=== PATIENT | female | born 1955 | race Caucasian/White ===

== ENCOUNTER 2022-07-12 10:00 | Outpatient (RCR) | payer MEDICARE, MEDICAID, SELFPAY | END 2022-09-29 11:51 | disposition home or self-care (01) | PROVIDERS: Visit Provider Physician Assistant Medical | DX: M54.50 Low back pain, unspecified (principal); Z51.89 Encounter for other specified aftercare | CPT/HCPCS: 97110; 97140; 97163 ==

== ENCOUNTER 2023-01-02 13:45 | Outpatient (RCR) | payer MEDICARE, MEDICAID, SELFPAY | END 2023-05-04 23:59 | disposition home or self-care (01) | PROVIDERS: PCP Physician Assistant Medical; Visit Provider Family Medicine | DX: M17.0 Bilateral primary osteoarthritis of knee (principal); M54.50 Low back pain, unspecified; G89.29 Other chronic pain; Z51.89 Encounter for other specified aftercare | CPT/HCPCS: 97140; 97161 ==

== ENCOUNTER 2024-03-03 11:49 | Outpatient (CLI) | payer MEDICARE, SELFPAY ==
--- OUTSIDE RECORDS SUMMARY | 2024-03-21 09:13 | XMS_ITS | Clinical Summary ---
Author Organization [employer] Address [address] [place] [address] Care Team Providers Care Disposal Man Name Role Phone Harvey Ely PA-C Primary Care Provider [phone] Source Comments You are receiving this document as you are listed as the primary care provider,follow-up provider, or the patient has been referred to you for consultation.This is in compliance with the Medicare and[facility] [employer] EHR Incentive Program,which states Providers who transition their patient to another setting of careor provider of care or refers their patient to another provider of care shouldprovide summary care record for each transition of care or referral. [employer] Allergies Active Allergy Reactions Criticality Noted Date Comments Clindamycin Other, see comments 04/14/2009 GI upset Milk Protein Other, see comments 12/04/2020 Penicillins Hives High 02/16/2010 Hives Medications Medication Sig Dispensed Refills Start Date End Date Status ALBUterol sulfate HFA 108 (90 Base) MCG/ACT inhaler SMARTSI-2 Puff(s) By Mouth Every 6 Hours PRN 01/20/2022 Active ELIQUIS 5 MG tablet Take 1 Tablet (5 mg) by mouth two times a day. 03/18/2022 Active atorvastatin (LIPITOR) 80 MG tablet Take 80 mg by mouth daily at bedtime. 05/19/2022 Active Calcium Citrate 250 MG Take 2 Tablets by mouth two times a day. 05/05/2022 Active citalopram (CELEXA) 40 MG tablet Take 1 Tablet (40 mg) by mouth daily. 05/19/2022 Active vitamin B-12 (AKA: CYANOCOBALAMIN) 1000 MCG tablet Take 1 Tablet (1,000 mcg) by mouth daily. 05/02/2022 Active ADVAIR DISKUS 250-50 MCG/ACT diskus inhaler two times a day. 01/20/2022 Acti ve levETIRAcetam (KEPPRA) 750 MG tablet Take 2 Tablets (1,500 mg) by mouth two times a day. 05/19/2022 Active lisinopril-hydroC HLOROthiazide (PRINZIDE) 20-12.5 MG tablet Take 1 Tablet by mouth daily. 05/19/2022 Active metFORMIN XR (GLUCOPHAGE XR) 500 MG 24 hour release tablet Take 1,000 mg by mouth daily. 01/31/2022 Active Multiple Vitamins-Minerals (CERTAVITE/ANTIOX IDANTS) TABS Take 1 Tablet by mouth daily. 05/19/2022 Active Spacer/Aero-Holdi ng Chambers (EQ SPACE CHAMBER ANTI-STATIC) SUZETTE FOR HOME USE 01/20/2022 Activ e rosuvastatin (CRESTOR) 10 MG tablet Take 1 Tablet (10 mg) by mouth daily at bedtime. 09/18/2022 Active Cholecalciferol (VITAMIN D3) 125 MCG (5000 UT) TABS Take 1 Tablet by mouth daily. 09/15/2022 Active EPINEPHrine (EPIPEN) 0.3 MG/0.3ML injection SMARTSI.3 Milligram(s) IM PRN 07/07/2022 Active nitroglycerin (NITROSTAT) 0.4 MG sublingual tablet SMARTSI Tablet(s) Sublingual PRN 07/07/2022 Active diclofenac (VOLTAREN) 1 % gel Apply 2 g to skin 4 times a day. 4 times per day Active diclofenac (VOLTAREN) 75 MG enteric coated tablet Take 1 Tablet (75 mg) by mouth two times a day. 05/22/2022 02/21/2024 Discontinue d Active Problems Problem Noted Date Diagnosed Date Primary osteoarthritis of both knees 11/06/2023 Primary osteoarthritis of both hips 11/06/2023 Encounters Date Type Department Care Team Description 02/21/2024 Telephone [facility] [address] [place] [phone] Chaim Webster MD QUESTIONS, GENERAL 02/14/2024 Telephone [facility] [address] [place] [phone] Chaim Webster MD Orders Needed (wheelchair) from Last 3 Months Social History Tobacco Use Types Packs/Day Years Used Date Smoking Tobacco: Never Tobacco Cessation:Counseling Given: Not Answered Sex and Gender Information Value Date Recorded Sex Assigned at Not on file Gender Identity Not on file Sexual Orientation Not on file Last Filed Vital Signs Vital Sign Reading Time Taken Comments Blood Pressure - - Pulse - - Temperature 36.6 ??C (97.8 ??F) 10/18/2023 1 2:25 PM [employer] Respiratory Rate - - Oxygen Saturation - - Inhaled Oxygen Concentration - - Weight 123.9 kg (273 lb 0.6 oz) 11/06/2023 1:28 PM [employer] Height 166.4 cm (5' 5.5) 11/06/2023 1:28 PM [employer] Body Mass Index 44.75 11/06/2023 1:28 PM [employer] Plan of Treatment Upcoming Encounters Date Type Department Care Team (Late st Contact Info) Description 03/27/2024 3:15 PM CDT Appointment [facility] [address] [place] [phone] [place] [id number] [facility] [address] [place] [address] Health Maintenance Due Date Last Done Comments Colon Cancer Screening Plan Due 1955 Diabetes Screening- (based on age and BMI) 1955 Hep C Screening (Preventive Services) 1955 Cholesterol 2002 Dexa 2022 Medicare Annual Wellness Visit 10/16/2023 COVID-19 Vaccine ( season) 2023 08/08/2023, 07/08/2022, 04/29/2022, Additional history exists Mammogram 09/19/2024 09/19/2023, 05/26/2022 DTaP/Tdap/Td (4 - Tdap) 02/08/2028 02/08/20 18, 04/29/2008, 10/22/2007, Additional history exists Zoster/Shingles Completed 10/15/2020, 07/31/2020 Pneumococcal 65+ Yrs Completed 07/08/2022, 10/26/19 00 Influenza Completed 08/08/2023, 06/17, 07/15/2021, Additional history exists HepA Aged Out No longer eligi ble based on patient's age to complete this topic HepB Aged Out No longer eligi ble based on patient's age to complete this topic Hib Aged Out No longer eligi ble based on patient's age to complete this topic IPV (Polio) Aged Out No longer eligi ble based on patient's age to complete this topic MCV4 Aged Out No longer eligi ble based on patient's age to complete this topic Procedures Procedure Name Priority Date/Time Associated Diagnosis Comments MM MAMMOGRAM SCREENING BILAT W 3D SABRINA W CAD Routine 09/19/2023 1:08 PM [employer] from Last 3 Months or Most Recently Relevant to Health Maintenance Care Teams Disposal Man Relationship Specialty Start Date End Date Harvey Ely, PARafaC [address] [place] [address] PCP - General Physician Herbologist 10/23/23
--- OUTSIDE RECORDS SUMMARY | 2024-03-21 09:13 | XMS_ITS | Clinical Summary ---
Author Organization [facility] Address [address] [address] Phone Care Team Providers Care Legal Arbitrator Name Role Phone Unavailable Primary Care Provider Unavailabl e Allergies Active Allergy Reactions Criticality Noted Date Comments Bactrim Pruritis 07/12/2010 Clindamycin Other 04/14/2009 GI upset Environmental 12/09/2011 Sensitive to airborne irritants including cleaning chemicals, cigarette smoke, and perfumes Food Anaphylaxis High 02/16/2010 Dairy Products- respiratory problems Hydrocodone Nausea and Vomiting Medium 06/29/2012 Levaquin Headache 07/31/2012 Patient states it makes her nausea and gives her headaches Niacin Other 04/14/2009 Flushing and irregular hearbeat Penicillins High 02/16/2010 Hives Simvastatin Other High 04/14/2009 Myalgias Statin Intolerance Documentation 2. Shared decision making discussion with patient regarding statins and patient choses to not trial a second or additional statin. Medications Medication Sig Dispensed Refills Start Date End Date Status aspirin EC 81 MG tablet Take 1 Tab by mouth one time a day. Do not split or crush. 1 Tab 12/09/2019 Active levETIRAcetam (Keppra) 750 MG tabletIndications:Ge neralized convulsive epilepsy without intractable epilepsy (HCC) TAKE 2 TABLETS BY MOUTH TWICE DAILY. DO NOT CRUSH 360 Tab 3 12/10/2019 Active Multiple Vitamins-Minerals (Multivitamin Adult) Tablet Take 1 Tab by mouth one time a day. 100 Tab 3 12/11/2019 Active Eliquis 5 MG Tablet tablet TAKE 1 TABLET BY MOUTH TWICE DAILY 180 Tab 1 06/08/2020 Active citalopram (CeleXA) 40 MG tablet Take 1 Tab by mouth one time a day. 90 Tab 1 06/08/2020 Active cholecalciferol, vitamin D3, 125 MCG (5000 UT) Capsule Take 1 Cap by mouth one time a day. 1 unit of Vitamin D equals 0.025 mcg of Vitamin D 30 Cap 06/25/2020 Active zolpidem (Ambien) 5 MG tablet TAKE 1 TABLET BY MOUTH AT BEDTIME NEEDED FOR SLEEP. IF TAKING, DECREASE LORAZEPAM TO 1MG AT BEDTIME 90 Tab 07/08/2020 Active diclofenac EC (Voltaren) 75 MG tablet TAKE 1 TABLET BY MOUTH TWICE DAILY. DO NOT CRUSH TABLETS.TK WITH FOOD OR MILK 180 Tab 1 07/31/2020 Active nitroglycerin (Nitrostat) 0.[address] 1 Tab under the tongue as needed for Chest pain. Do not crush; maximum of 3 doses in 15 minutes. 5 Tab 1 07/31/2020 Active EPINEPHrine, auto-injector, (EPIPEN 2-damion) 0.3 MG/0.3ML Solution Auto-injector injection Inject 0.3 mL into the muscle one time as needed for Anaphylaxis for up to 1 dose. 2 Each 07/31/2020 Active albuterol HFA (Proair HFA, Ventolin HFA) 108 (90 Base) MCG/ACT inhalation aerosol Inhale 2 Puffs into the lungs every four hours as needed for Wheezing, Shortness of Breath or Cough. Shake before using. 8 g 07/31/2020 Active LORazepam (Ativan) 1 MG tablet TAKE 1 AND 1/2 TABLETS BY MOUTH NEEDED AT BEDTIME 60 Tab 08/28/2020 Active atorvaSTATin (Lipitor) 80 MG tablet TAKE 1 TABLET BY MOUTH EVERY DAY 30 Tab 10/15/2020 Active Active Problems Problem Noted Date Diagnosed Date Paroxysmal atrial fibrillation 05/01/2018 Overview: 10/31/17 Note: CHADS-VASc score is approximately a 3 for previous hypertension, female gender, and atherosclerosis. HAS-BLED score is not significantly elevated, though I do much concern given that she needs antiplatelet therapy and she has a seizure disorder. Blood pressure is not terrible today. Nonetheless, with the seizure disorder, when it does happen, it is quite significant. We discussed talking with Dr. Townsend or Dr. Morgan about the potential of a Watchman device. She is interested in meeting and discussing. For right now, will continue the Plavix. See above about metoprolol as a consideration for concurrent blood pressure management along with her A fib history. ?? 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 11/22/2013 Atrial fibrillation with RVR- isolated episode 0 05/03/2013 Refractory migraine without aura 02/15/2013 Greater trochanteric bursitis of both hips 02/22 Degeneration of lumbar or lumbosacral interverte bral disc 02/10/2012 Metabolic syndrome 09/15/2011 Overview: IMO Update 07/26 Morbid obesity with BMI of 40.0-44.9, adult 08/16 Incontinence 04/04/2011 Adjustment disorder with depressed mood 02/17/20 Allergic rhinitis 02/16/2010 Resolved Problems Problem Noted Date Diagnosed Date Resolved Date Weakness of left upper extremity 06/27/2019 07/30/2019 Left shoulder pain, unspecified chronicity 05/17/2017 07/30/2019 Chronic low back pain, unspe cified back pain laterality, unspecified whether sciatica present 08/20/2015 11/27/2019 Bursitis of right hip 07/27/20152016 Acute upper back pain 02/12/20142016 BPPV (benign paroxysmal positional vertigo) 02/07/2014 05/01/2018 Chronic pain 01/28/2014 11/21/2017 Chest pain 05/03/2013 10/13/2017 Recurrent Seizures, generalized convulsive 01/27/2013 11/21/2017 Acute respiratory failure 01/27/2013 Pneumonitis due to inhalatio n of food or vomitus 01/27/2013 01/24/2017 Shoulder impingement 11/20/2012 018 Spondylolisthesis of lumbar region 05/18/2012 11/21/2017 Lumbosacral spondylosis without myelopathy 02/23/2012 05/18/2012 Lumbago 05/28/2010 02/10/2012 Overview: IMO Update 07/26 Chronic Pain Syndrome-Opioid Agreement (signed 05/28/2010) 05/28/2010 02/28/2012 Overview: Opioid Drug Agreement Form. Opioid Agreement Date: 05/28/2010 Last UDT (Urine Drug Test) on date: none Pain Dx: chronic pain syndrome Last Pain Visit: 06/29/2010 back pain Preferred Pharmacy: [facility] Comments: none Other convulsions 05/17/2010 11/21/2017 Overview: IMO Update 07/26 MRSA 03/31/2010 10/14/2011 Overview: Resolved by Infection Prevention on 10/17/2011. Date & Source of First Known MRSA: 03/30/2010 - UPPER LIP Date and source of negative screens that qualify* for resolution of MRSA from infection table: 06/03/2010 - NEGATIVE NARES 10/14/2011 - NEGATIVE NARES *2 sets of MRSA negative screens (previous positive site(s) if applicable and bilateral anterior nares) at least 7 days apart are required to resolve. Screening exclusions include dialysis, skilled nursing care residence, antibiotics within the past 7 days, chronic wounds or invasive devices, & recurrent MRSA infections. Please contact Infection Prevention for your facility if questions. Coronary Atherosclerosis of [place] Coronary Artery, stents x 4, PR 2006, 2007, hypertension 02/16/2010 02/03/2015 Overview: IMO Update 07/26 Other and unspecified hyperlipidemia 02/16/2010 07/31/2015 Overview: IMO Update 07/26 Asthma 02/16/2010 11/09/2012 Gen noncv ep w/o intr ep 02/16/2010 Overview: IMO Update 07/26 Immunizations Name Administration Dates Next Due Hepatitis B, Adult 11/11/2008,06/05/2008, 008 Influenza (3+ Yrs) Trivalent PF-Single Dose Syringe/Vial (Flu Clinic) 07/31/2012 Influenza (6+ Months) Quad NPF Vial 07/03/2015 Influenza (Historic Use Only) 07/09/2009, 006,08/03/2005 Influenza Quad Preservative Free 020,07/23/2019,07/11/2018,2016,08/03/2016 Influenza Seasonal Inj A,B 08/01/2013,08/25/2011 ,09/27/2010 Influenza Vaccine (6 months - 64 Years) Quad PF Syringe (Flu Clinic) 07/21/2014 MMR 06/05/2008 Pneumovax 23 10/26/1999 TD >7yrs With Preservative 04/29/2008,05/26/1992 Tdap (7 years and older) 02/07/2018 Zoster Shingrix 2 Dose (Shingles) 07/31/2020 Surgical History Surgery Date Site/Laterality Comments INSERT INTRACORONARY STENT 07/31/2007 Stent Placement, Coronary. Had stent thrombosis is 2007 after D/C Plavix. Restented 09/25/2008. DEXA, BONE DENSITY STUDY, 1 OR 11/03/2004 [facility] EXPLOR MAXILL SINUS,INTRANASAL 10/16/2004 - 11/15/2004 Bilateral osteotomies of medial sy of maxillary sinuses NASAL SCOPY,REMV PART ETHMOID 02/20/1997 REVISE MEDIAN N/CARPAL TUNNEL SURG 11/12/2004 Right carpal tunnel release LEFT HEART CATH 07/31/2007 DILATION/CURETTAGE,DIAGNOST IC 10/16/1976 - 10/15/1977 D & C following miscarriage LIGATE FALLOPIAN TUBE BIOPSY OF UTERUS LINING 08/20/2001 Benign COLPOSCOPY,BX CERVIX/ENDOCERV CURR 10/17/2003 Benign LEFT HEART CATH 09/25/2008 In stent stenosis - new stent placed INJ LUMBAR/SACRAL,W/WO CNTRST 07/12/2010 INJ PARAVERT F JNT L/S 1 LEV 12/30/2010 Also 06/14/10 INJ PARAVERT F JNT L/S 2 LEV 12/30/2010 Also 06/14/10 DRAIN/INJECT LARGE JOINT/BURSA 12/30/2010 CARDIAC SURGERY INTRAOCULAR LENS PROSTHESIS INSERTION 11/22/2018 Eye/Left Procedure: left eye cataract extraction with intraocular lens implant; Surgeon: Miguel Toussaint MD; Location: [facility] Medical devices from this surgery are in the Medical Devices section. Medical History Medical History Date Comments Reactive airway disease 02/16/2010 Coronary atherosclerosis of [place] coronary artery 02/16/2010 S/p stent placement Other and unspecified hyperlipidemia 02/16/2010 Contact with and suspected e xposure to potentially hazardous chemicals 04/13/2009 Exposure to polychl oroprene solvent, [place] bonding adhesive. Obesity, unspecified 04/14/2009 Acute myocardial infarction of other anterior wall, initial episode of care 04/14/2009 S/p stent placed proximal an d mid LAD, PTCA of a jailed second diagonal branch 07/31/2007 Pneumonia, organism unspecified(486) 08/25/2002 Carpal tunnel syndrome on both sides 08/26/2004 Moderate grade; S/p right carpal tunnel release on 11/12/2004 Low back pain 03/12/2010 Severe low back pain with radiation into the leg Pain in joint, ankle and foot 03/12/2010 Le ft Left shoulder pain 03/12/2010 Osteoarthrosis, unspecified whether generalized or localized, unspecified site 03/12/2010 DJD without herniated disc Allergic rhinitis, cause unspecified 03/12/2010 Longstanding history of sinus problems Papanicolaou smear of cervix with atypical squamous cells of undetermined significance (ASC-US) 12/30/2002 Cervical biopsy kennedy wed cervicitis and reactive epithelial atypia - endocervix negative. Migraine, unspecified, witho ut mention of intractable migraine without mention of status migrainosus 12/30/2002 MRSA (methicillin resistant staph aureus) culture positive 04/02/2010 Chronic pain syndrome 05/28/2010 Opioid Derrick g Agreement Form. Lumbosacral spondylosis with out myelopathy 12/30/2010 Also noted 07/12/10, 06/14/10. Sciatica 07/12/2010 Enthesopathy of hip region 12/30/2010 Essential hypertension, benign Memory loss 01/02/2014 Sleep disturbance 01/02/2014 Bursitis of right hip 07/27/2015 Acute upper back pain 02/12/2014 Pneumonitis due to inhalatio n of food or vomitus (HCC) 01/27/2013 Acute respiratory failure (HCC) 01/27/2013 Depression Asthma Generalized nonconvulsive ep ilepsy without mention of intractable epilepsy 02/16/2010 EEG is consistent with abnor mality of seizure disorder Other convulsions 04/29/2010 EEG Generalized epilepsy (HCC) 11/15/2013 Hx of heart artery stent x2 Family History Medical History Relation Comments Cancer Father Myeloma Cancer Mother Cervical cancer, age 28, of islet cell carcinoma age 81 Cardiovascular Disease Mother S/p coron ivv artery bypass surgery Hypertension Mother Musculo-skeletal Disease Mother Arthrit is Cardiovascular Disease Other 1 Strong fa jimmy history for cardiac disease Diabetes Other 2 Aunt, uncle Cancer Other 3 Aunt - liver, co alan cancer in her 50s Cancer Other 4 Grandfather, amrit kemia Neuro Disease Other 5 Aunt of a c erebral bleed Cardiovascular Disease Sister 1 CHF Neuro Disease Sister 1 Twin sister with epilepsy Other Sister 1 adverse reaction to morphine Asthma Sister 2 Ophthalmic Disease Negative Family Hx Relation Status Comments Father (Age 62) Multiple myelo ma Maternal Grandfather Maternal Grandmother Mother Other 1 Other 2 Other 3 Other 4 Other 5 Paternal Grandfather Paternal Grandmother Sister 1 Sister 2 Social History Tobacco Use Types Packs/Day Years Used Date Smoking Tobacco: Never Smokeless Tobacco: Never Tobacco Cessation:Counseling Given: No Alcohol Use Standard Drinks/Week Comments No 0 (1 standard drink = 0.6 oz pur e alcohol) no Overall Financial Resource Strain (CARDIA) Answe r Date Recorded Difficulty of Paying Living Expenses Somewhat [place] [address] 10/23/2019 PHQ-2 Answer Date Recorded PHQ-2 Total 0 11/26/2019 Hunger Vital Sign Answer Date Recorded Worried About Running Out of Food in the Last Ye ar Sometimes true 10/23/2019 Ran Out of Food in the Last Year Sometimes true 10/23/2019 PRAPARE - Transportation Answer Date Re corded Lack of Transportation (Medical) No 07/23/2019 Lack of Transportation (Non-Medical) No 07/23/2019 Sex and Gender Information Value Date Recorded Sex Assigned at Not on file Gender Identity Not on file Sexual Orientation Not on file Job Start Date Occupation Industry Not on file Not on file Not on file Obstetrics History Para Term AB IAB SAB Ectopic Molar Multiple Living Live Births 4 3 0 1 1 3 4 Date Outcome GA Total Labor Labor/2nd/3rd Weight Sex Type Anes PTL Darline A1 A5 Name Clin 04/29 Para M LV/ VAG Living 09/03 SAB 09/06 Para F LV/ VAG Living 06/03 Para M LV/ VAG Living Last Filed Vital Signs Vital Sign Reading Time Taken Comments Blood Pressure 142/90 07/31/2020 1:11 PM CDT Pulse 69 07/31/2020 12:41 PM CDT Temperature 36.7 ??C (98 ??F) 11/26/2019 10: 16 AM DOWEL INSPECTOR Respiratory Rate 18 12/10/2019 10:3 4 AM DOWEL INSPECTOR Oxygen Saturation 97% 07/31/2020 12: 35 PM CDT Inhaled Oxygen Concentration - - Weight 127.5 kg (281 lb 1.4 oz) 020 11:08 AM DOWEL INSPECTOR Height 165.1 cm (5' 5) 11/26/2019 10:1 6 AM DOWEL INSPECTOR Body Mass Index 46.06 11/06/2019 11:08 AM DOWEL INSPECTOR Plan of Treatment Health Maintenance Due Date Last Done Comments CT Colonography 1957 Cologuard 1957 Colonoscopy 1957 Colorectal Cancer Screening 1957 FIT/FOBT 1957 Sigmoidoscopy 1957 RSV Vaccination (60+ yrs) (Abrysvo/Arexvy) (1 - 1-dose 60+ series) 2017 MAMMO,SCREEN 08/27/2020 08/28/2019, 0510/2017, 08/09/2016, Additional history exists Shingrix (Zoster recombinant) vaccine (Standing Order) (2 of 2) 09/25/2020 07/31/2020 DXA,FEMALES AGE 65 OR GREATER 2022 Pneumococcal Vaccine: 65+ yrs (Standing Order) (2 of 2 - PCV) 2022 10/26/1999 Influenza Vaccine Seasonal (Standing Order) (#1) 2023 07/31/2020, 07/23/2019, 07/11/2018, Additional history exists VASCULAR LIPID PROFILE Q5 YEARS (Standing Order) 07/22/2024 07/22/2019, 08/09/2017, 08/02/2016, Additional history exists TETANUS (Standing Order) 02/08/2028 018, 04/29/2008, 05/26/1992 Hepatitis B Vaccine (Standing Order) Completed 11/11/2008, 06/05/2008, 04/29/2008 PERTUSSIS (Standing Order) Completed 02/07/2018 HPV Vaccine (Standing Order) Aged Out No longer eligible based on patient's age to complete this topic Medical Devices Implanted Type Area Color Dipper Device Identifier Shelf Expiration Date Model / Serial / Lot Sling Pelvic T-Sling - [id number] Implanted:Qty: 1 on 10/14/2011 at [facility] N/A: Bladder COLOPLAST [place]ILLA. [id number] / N/A / [id number] Lens Iol [id number] 16.0d Acrysof Iq [id number] - [id number] Implanted:Qty: 1 on 11/22/2018 by Miguel Toussaint MD at [facility] [place] Left: Eye ENZO 05/15/2023 [id number] / [id number] / * Procedures Procedure Name Priority Date/Time Associated Diagnosis Comments MAMM SABRINA SCREEN DIGITAL BILAT Routine 08/28/2019 1:52 PM DOWEL INSPECTOR Visit for screening mammogram LIPID PROFILE Routine 07/22/2019 8:17 AM CDT Coronary artery disease involving [place] coronary artery without angina pectoris, unspecified whether [place] or transplanted heart from Last 3 Months or Most Recently Relevant to Health Maintenance Results * MAMM SABRINA SCREEN DIGITAL BILAT (08/28/2019 1:52 PM DOWEL INSPECTOR) Anatomical Region Laterality Modality Breast Bilateral Mammography 08/28/2019 1:52 PM DOWEL INSPECTOR Narrative 08/28/2019 8:44 PM DOWEL INSPECTOR This document is currently in Final Status Exam MAMM SABRINA SCREEN DIGITAL BILAT COMPARISON: 02/23/2018, 08/09/2016, 08/29/2014, 05/17/2011. TECHNICAL: Standard MLO and CC views of both breasts acquired with 2D and 3D tomosynthesis. Computer-Aided Detection System was utilized. BREAST DENSITY: There are scattered areas of fibroglandular density. FINDINGS: No suspicious masses, architectural distortion, skin thickening, nipple retraction, or suspicious calcifications are appreciated. IMPRESSION: No suspicious radiographic findings. Routine followup recommended with mammogram in 1 year. BI-RADS 1: Negative Dictated By: Megan Torres MD 08/28/2019 7:30 PM Edited By: TT 08/28/2019 7:31 PM Electronically Signed: Megan Torres MD 08/28/2019 8:44 PM Procedure Note Megan Torres MD - 08/28/2019 This document is currently in Final Status Exam MAMM SABRINA SCREEN DIGITAL BILAT COMPARISON: 02/23/2018, 08/09/2016, 08/29/2014, 05/17/2011. TECHNICAL: Standard MLO and CC views of both breasts acquired with 2D and3D tomosynthesis. Computer-Aided Detection System was utilized. BREAST DENSITY: There are scattered areas of fibroglandular density. FINDINGS: No suspicious masses, architectural distortion, skin thickening,nipple retraction, or suspicious calcifications are appreciated. IMPRESSION: No suspicious radiographic findings. Routine followuprecommended with mammogram in 1 year. BI-RADS 1: Negative Dictated By: Megan Torres MD 08/28/2019 7:30 PM Edited By: ANDREINA 08/28/2019 7:31 PM Electronically Signed: Megan Torres MD 08/28/2019 8:44 PM Caren Ovalle MD MAMMOGRAPHY [facility] * (ABNORMAL) LIPID PANEL (07/22/2019 8:17 AM CDT) Cholesterol 152 114 - 200 mg/dL 07/22/2019 11:54 AM CDT [facility] HDL Cholesterol 39(L) 40 - 60 mg/dL 07/22/2019 11:54 AM T [facility] Triglycerides 172 10 - 200 mg/dL 07/22/2019 11:54 AM T [facility] LDL Cholesterol, Calculated 79 mg/dL 07/22/2019 11:54 AM [facility] Blood specimen (specimen) BLOOD SPECIMEN / Unknown Venipuncture / Unknown 07/22/2019 8:17 AM CDT 07/22/2019 8:17 AM CDT Narrative [facility] - 07/22/2019 11:54 AM CDT ?Triglyceride If patient is non-fasting, the result of the triglyceride is invalid. ?? Triglyceride Reference Ranges ?? Normal: ?10-200 mg/dL ?? Borderline High: ??150-200 mg/dL ?? High: ? 201-499 mg/dL ?? Very High: ? =500 ?mg/dL Total Cholesterol Reference Ranges ?? Desirable: ? <200 ?mg/dL Borderline High: ?? 200-239 mg/dL High: ?>239 ?mg/dL Calculated LDL Cholesterol Reference Ranges ? Optimal: ?<100 ? mg/dL ? Near Optimal: ? 100-129 ??mg/dL ? Borderline High: ??130-159 ??mg/dL ? High: ? 160-189 ??mg/dL ? Very High: ?>189 ? mg/dL Caren Ovalle MD EC CHEMISTRY ORDERA BLES [facility] [address] [place] [address], [facility] from Last 3 Months or Most Recently Relevant to Health Maintenance Advance Directives For more information, please contact: [phone] * Full Code (Latest Code Status on File) Date Activated Date Inactivated Comments 05/03/2013 12:23 AM 05/03/2013 7:19 PM * Full Code Date Activated Date Inactivated Comments 01/27/2013 3:22 AM 01/29/2013 4:19 PM
--- OUTSIDE RECORDS SUMMARY | 2024-03-21 09:13 | XMS_ITS | Referral Summary ---
Author Organization [place] Address [address] [place] [address] Care Team Providers Care Desizing Machine Operator Head End Name Role Phone Clinic, [facility] Primary Care Provider + Allergies Active Allergy Reactions Criticality Noted Date Comments Clindamycin Other (See Comments) 04/14/2009 GI upset Milk Protein 12/04/2020 Hydrocodone Nausea and Vomiting Medium 06/29/2012 Levofloxacin Headache 07/31/2012 Patient states it makes her nausea and gives her headaches Niacin Other (See Comments) 04/14/2009 Flushing and irregular hearbeat Other Drug Allergy (See Comments) Other (See Comments) 11/01/2022 This patient has a history of a Grecia-en-Y gastric bypass. AVOID NSAIDs and aspirin due to risk of gastric and/or G-J anastomotic ulcers. If Amber must be on short course of NSAIDs or aspirin, use enteric coated if possible and use PPI // Susie Oh RN, Bariatric Nurse , [facility] Weight Management 11/01/2022. Penicillins 12/04/2020 Simvastatin Other (See Comments) High 04/14/2009 Myalgias Statin Intolerance Documentation 2. Shared decision making discussion with patient regarding statins and patient choses to not trial a second or additional statin. Sulfamethoxazole-Trime thoprim Itching 07/12/2010 Medications Medication Sig Dispensed Refills Start Date End Date Status ELIQUIS ANTICOAGULANT 5 MG tablet Take 1 tablet by mouth 2 times daily 04/26/2023 Active albuterol (PROAIR HFA/PROVENTIL HFA/VENTOLIN HFA) 108 (90 Base) MCG/ACT inhaler Inhale 1-2 puffs into the lungs every 6 hours as needed for shortness of breath 01/20/2022 Active atorvastatin (LIPITOR) 80 MG tablet Take 80 mg by mouth At Bedtime 08/31/2022 Active citalopram (CELEXA) 40 MG tablet Take 40 mg by mouth daily Active cyclobenzaprine (FLEXERIL) 10 MG tablet Take 10 mg by mouth 3 times daily Active levETIRAcetam (KEPPRA) 1000 MG tablet Take 1,000 mg by mouth daily 03/07/2023 Active lisinopril-hydrochloro thiazide (ZESTORETIC) 20-12.5 MG tablet Take 1 tablet by mouth daily 03/22/2023 Active metaxalone (SKELAXIN) 800 MG tablet Take 800 mg by mouth 3 times daily 01/19/2023 Active rosuvastatin (CRESTOR) 10 MG tablet Take 10 mg by mouth At Bedtime Active Social History Tobacco Use Types Packs/Day Years Used Date Smoking Tobacco: Never Assessed Adolescent Education Answer Date Record ed Getting School Help Needed Not on file 07/08 Sex and Gender Information Value Date Recorded Sex Assigned at Not on file Gender Identity Not on file Sexual Orientation Not on file Last Filed Vital Signs Vital Sign Reading Time Taken Comments Blood Pressure 128/63 06/13/2023 1:37 PM CDT Pulse 86 06/13/2023 12:38 PM CDT Temperature 36.7 ??C (98.1 ??F) 06/13/2023 1 0:56 AM CDT Respiratory Rate 18 06/13/2023 1:45 PM CDT Oxygen Saturation 98% 06/13/2023 1:45 PM CDT Inhaled Oxygen Concentration - - Weight 120.2 kg (264 lb 15.9 oz) 2022 10:56 AM CDT Height 166.4 cm (5' 5.5) 06/13/2023 10 :56 AM CDT Body Mass Index 43.43 06/13/2023 10:56 AM CDT Plan of Treatment Not on file Procedures Procedure Name Priority Date/Time Associated Diagnosis Comments BASIC METABOLIC PANEL STAT 06/13/2023 10:58 AM CDT MA SCREENING BILATERAL W/ SABRIAN Routine 05/26/2022 12:29 PM CDT from Last 3 Months or Most Recently Relevant to Health Maintenance Results * (ABNORMAL) Basic metabolic panel (BMP) (06/13/2023 10:58 AM CDT) Sodium 143 136 - 145 mmol/L 06/13/2023 11:27 AM CDT LABORATORY Potassium 3.7 3.4 - 5.3 mmol/L 06/13/2023 11:27 AM CDT RH LABORATORY Chloride 106 98 - 107 mmol/L 06/13/2023 11:27 AM CDT LABORATORY Carbon Dioxide (CO2) 24 22 - 29 mmol/L 06/13/2023 11:27 AM CDT LABORATORY Anion Gap 13 7 - 15 mmol/L 06/13/2023 11:27 AM CDT RH LABORATORY Urea Nitrogen 19.0 8.0 - 23.0 mg/dL 06/13/2023 11:27 AM CDT LABORATORY Creatinine 0.69 0.51 - 0.95 mg/dL 06/13/2023 11:27 AM CDT LABORATORY Calcium 10.0 8.8 - 10.2 mg/dL 06/13/2023 11:27 AM CDT LABORATORY Glucose 114(H) 70 - 99 mg/dL 06/13/2023 11:27 AM CDT LABORATORY GFR Estimate >90 >60 mL/min/1.7 3m2 06/13/2023 11:27 AM CDT LABORATORY Blood BLOOD SPECIMEN / Unknown Venipuncture / Unknown 06/13/2023 10:58 AM CDT 06/13/2023 11:02 AM CDT Jaida Smith DO LAB - BLOOD ORDERABL ES LABORATORY [facility] [address] Lab (1st floor, no room number) [place] [address], [facility] [phone] from Last 3 Months or Most Recently Relevant to Health Maintenance Care Teams Desizing Machine Operator Head End Relationship Specialty Start Date End Date [facility], [facility] [address] [place] [address] PCP - General 12/04/20
--- OUTSIDE RECORDS SUMMARY | 2024-03-21 09:13 | XMS_ITS | Encounter Summary ---
Author Organization [facility] Address [address] [place] [address] Care Team Providers Care Manufacturing Operations Manager Name Role Phone Harvey Ely PA-C Primary Care Provider [phone] Reason for Referral * Procedure/Equipment (Routine) - New Request Specialty Diagnoses / Procedures Referred By Contac t Referred To Contact Diagnoses Primary osteoarthritis of both knees Primary osteoarthritis of both hips Procedures [place] [address] [facility] [address] [place] [address] [facility] [address] [place] [address] Referral ID Status Reason Start Date Expiration Date V isits Requested Visits Authorized [id number] New Request 02/16/2024 08/14/2024 1 1 Reason for Visit * Reason Comments Orders Needed wheelchair Encounter Details Date Type Department Care Team (Late st Contact Info) Description 02/14/2024 Telephone [facility] [address] [place] [address] [place] [address] [address] [place] [address] Orders Needed (wheelchair) Social History Tobacco Use Types Packs/Day Years Used Date Smoking Tobacco: Never Sex and Gender Information Value Date Recorded Sex Assigned at Not on file Gender Identity Not on file Sexual Orientation Not on file documented as of this encounter Progress Notes * Chaim Addison MD - 02/16/2024 9:46 AM CDTAddended by: CHAIM ADDISON on: 02/16/2024 09:46 AM Modules accepted: Orders documented in this encounter Nursing Notes * Maria Elena Canela CMA - 02/16/2024 10:36 AM CDT Faxed [phone] wheelchair order to [facility]. Verified receipt of fax * Mali Ruiz CMA - 02/15/2024 10:57 AM CDT Pt was informed of note. Patient is having a really hard time being mobile. Patient does use the walker to get around apt but struggles. Patient would like to use a wheelchair to get around for longer distances. Please sign wheelchair order and clinic team will fax this order over to the [facility] [place] [address] [address] [place] [address] Hours: Monday - Monday: 8:30-5:00 * Chaim Addison MD - 02/14/2024 5:20 PM CDT Patient to be informed that she needs to use a walker before moving on to a wheelchair. I will do the script if she already has a walker. Any stronger pain meds need to come from her PCP as we will not give them to her preoperatively. She still needs to hit the goal weight of 250 to schedule surg nena as moving forward before then is too risky. Even proceeding at 250 is above our typical maximumBMI and still carries elevated risk. Chaim Addison MD 5:23 PM 02/14/2024 * Kimberly Huitron RN - 02/14/2024 4:12 PM CDT Action: Input needed Next Step: Caller IS expecting a call back from care team. Specific Request(s): 1. Pt requesting order for a wheelchair- pended if appropriate. 2. Pt requesting medication to assist with pain management. See further rational. Pt states that both knees are in extreme pain. Reports tylenol is not assisting with the pain and pt is unable to take nsaid. Pt is requesting stronger medication for pain. Advised prior to surgery narcotics are rarely prescribed for pain management and most often need to come from primary care provider. Pt would like to ask Dr. Addison. Pt states her weight is now at 268. Encouraged pt to ice. Pt states losing weight is very difficult when she is not able to stand the pain. Advised message wouldbe routed to MD and a call back would be given with response. * Sandra Fay - 02/14/2024 2:34 PM CDT GENERAL QUESTIONS How may we help you today? Pt. would like a call back from the care team. Describe your symptoms/concerns: she is having hard time walking would like a call back to discuss an order for wheelchair and medication for pain. Please call to advise. When did the issue start: Have you been seen for this recently?: Yes: Date: 11/06 Provider: If we are unable to reach you can we leave a detailed message on your voicemail? Yes If we are unable to reach you can we send you a message in [employer]? No [Acls Specialist/Cement Truck Driver: Relay to patient; We make every effort to get back to you sameday, however it may take 1-2 business days depending on the nature of the communication.] documented in this encounter Plan of Treatment Upcoming Encounters Date Type Department Care Team (Late st Contact Info) Description 03/27/2024 3:15 PM CDT [facility] [address] [place] [address] [place] [address] [facility] [address] [place] [address] documented as of this encounter Visit Diagnoses Diagnosis Primary osteoarthritis of both knees- Primary Primary localized osteoarthrosis, lower leg Primary osteoarthritis of both hips Primary localized osteoarthrosis, pelvic region and thigh documented in this encounter Care Teams Manufacturing Operations Manager Relationship Specialty Start Date End Date Harvey Ely PA-C [address] [place] [address] PCP - General Physician Client Customer Manager 10/23/23 documented as of this encounter
--- OUTSIDE RECORDS SUMMARY | 2024-03-21 09:13 | XMS_ITS | Clinical Summary ---
Author Organization [place] Address [address] [place] [address] Care Team Providers Care Researcher Name Role Phone Clinic, [facility] Primary Care Provider + Allergies Active Allergy [...] // Susie Oh RN, Bariatric Nurse , [facility] Weight Management 11/01/2022. Penicillins 12/04/2020 Simvastatin Other [...] 06/13/2023 10:56 AM CDT Plan of Treatment Health Maintenance Due Date Last Done Comments ADVANCE CARE PLANNING 1955 ANNUAL REVIEW OF HM ORDERS 1957 CT COLONOGRAPHY 1957 DEXA 1957 FIT 1957 FLEX SIG 1957 LIPID 1957 sDNA (Cologuard) 1957 COLONOSCOPY 1967 COLORECTAL CANCER SCREENING 1967 HEPATITIS C SCREENING 1975 RSV VACCINE ( & 60+) (1 - 1-dose 60+ series) 2017 FALL RISK ASSESSMENT 2022 COVID-19 Vaccine ( - 2022- season) 2023 07/08/2022, 04/29/2022, 12/09/2021, Additional history exists MEDICARE ANNUAL WELLNESS VISIT 09/15/2023 09/15/2022, 09/14/2021, 07/23/2019, Additional history exists PHQ-2 (once per calendar year) 2023 MAMMO SCREENING 05/26/2024 05/26/2022 INFLUENZA VACCINE (Season Ended) 2024 07/07/2022, 07/15/2021, 07/31/2020, Additional history exists GLUCOSE 06/13/2026 06/13/2023, 11/16, 12/04/2020 DTAP/TDAP/TD IMMUNIZATION (4 - Td or Tdap) 02/08/2028 02/07/2018, 04/29/2008, 10/22/2007, Additional history exists ZOSTER IMMUNIZATION Completed 10/15/2020, 0 Pneumococcal Vaccine: 65+ Years Completed 07/08/2022, 10/26/1999 HPV IMMUNIZATION Aged Out No longer e ligible based on patient's age to complete this topic IPV IMMUNIZATION Aged Out No longer e ligible based on patient's age to complete this topic MENINGITIS IMMUNIZATION Aged Out No l onger eligible based on patient's age to complete this topic RSV MONOCLONAL ANTIBODY Aged Out No l onger eligible based on patient's age to complete this topic Procedures Procedure Name Priority Date/Time Associated Diagnosis Comments BASIC METABOLIC PANEL STAT 06/13/2023 10:58 AM CDT MA SCREENING BILATERAL W/ SABRINA Routine 05/26/2022 12:29 PM CDT from Last 3 Months or Most Recently Relevant to Health Maintenance Results * (ABNORMAL) Basic metabolic panel (BMP) (06/13/2023 10:58 AM CDT) Sodium 143 136 - 145 mmol/L 06/13/2023 11:27 AM CDT LABORATORY Potassium 3.7 3.4 - 5.3 mmol/L 06/13/2023 11:27 AM CDT LABORATORY Chloride 106 98 - 107 mmol/L [...] DO LAB - BLOOD ORDERABL ES LABORATORY [facility] Acute Care Lab [address] Lab (1st floor, no room number) [place] [address], [facility] [phone] from Last 3 Months or Most Recently Relevant to Health Maintenance Care Teams Researcher Relationship Specialty Start Date End Date [facility], [facility] [address] [place] [address] PCP - General 12/04/20
--- OUTSIDE RECORDS SUMMARY | 2024-03-21 09:13 | XMS_ITS | Patient Health Record ---
Author Organization [facility] Address [address] [facility] [address] [place] [address] Care Team Providers Care Pension Fund Manager Name Role Phone Harvey Ely Primary Care Provider Darby Geiger Unavailable [phone] ALLERGIES Allergen (clinical drug ingredient) Drug/Non Drug Allergy documented on EMR Reaction Allergy Type Onset Date Status Dairy Digestive Unknown Drug Allergy A ctive Milk Digestant Unknown Drug Allergy Ac tive clindamycin Clindamycin Unknown Drug Allergy Act penelope hydrocodone Hydrocodone Unknown Drug Allergy Act penelope levofloxacin Levofloxacin Unknown Drug Allergy A ctive niacin Niacin Unknown Drug Allergy Active Non-steroidal anti-inflammatory agent (FN) NSAIDs Unknown Drug Allergy Active Penicillin Unknown Drug Allergy Active simvastatin Simvastatin Unknown Drug Allergy Act penelope sulfamethoxazole / trimethoprim Sulfamethoxazole/Tri methoprim Unknown Drug Allergy Active REASON FOR REFERRAL Referred Organization [facility] Referred Provider Darby Callaway Referred Address [address] [facility],[place], [place],[address], Referral Priority Routine MEDICATIONS Medication SIG (Take, Route, Frequency, Duration) Notes Start Date End Date Status CeleXA 40 MG 1 tablet Orally Once a day 12/07/2023 Active EPINEPHrine 0.3 MG/0.3ML as directed Injection 12/07/2023 Active Diclofenac Sodium 75 MG 1 tablet as need ed Orally Twice a day Active Acetaminophen 500 MG 2 tablet as needed Orally every 6 hrs 12/07/2023 Active Nitroglycerin 0.4 MG as directed Sublingual 12/07/2023 Active Multivitamin - 1 tablet Orally Once a day Active Aspirin 81 81 MG 1 tablet Orally Once a day Active Zolpidem [facility] Orally Once a day Active Apixaban 5 MG 1 tablet Orally Twice a day 12/07/2023 Active Prinzide Hydrocholoroth iazide/Lisinop ril Active Cholecalciferol 125 MCG (5000 UT) 1 tablet Orally Once a day 12/07/2023 Active Calcium Citrate-Vitamin D3 315-6.25 MG-MCG 2 tablet Orally Twice a day 12/07/2023 Active Lacosamide 50 MG 2 tablets Orally Twice a day x1 week, then decrease to 1 tablet twice a day x1 week, then stop for 30 days 12/29/2023 Active Cyanocobalamin 1000 MCG 1 tablet under t he tongue and allow to dissolve Sublingual Once a day 12/07/2023 Active Crestor 10 MG 1 tablet Orally Once a day 12/07/2023 Active LORazepam 1 MG 1 tablet Orally for seizure warning (acute confusion) May repeat x1 after 5 minutes if symptoms continue. Max 4 tablets in [address] after taking for 30 days 12/29/2023 Active levETIRAcetam 750 MG 2 tablet Orally twice a day for 30 days 12/07/2023 Active SOCIAL HISTORY Sex Assigned At : Social History Observation Description Sex Assigned At Unknown Tobacco Use Question Answer Notes Additional Findings: Tobacco Non-User Never smoked tobacco. Never used smokeless tobacco, never vaped. PROBLEMS Problem Type ICD Code Onset Dates Problem Status W/U Status Risk SNOMED Code Notes Problem Generalized idiopathic epilepsy and epileptic syndromes, not intractable, without status epilepticus (G40.309) Active confirmed Idiopathic generalized epilepsy, non-refractory ([id number]) VITAL SIGNS Height-cm 166.37 cm 12/28/2023 Height 65.5 in 12/28/2023 Weight 122.7 kg 12/28/2023 BMI 44.32 kg/m2 12/28/2023 Encounters Encounter Location Date Provider Diagnosis [facility] [address] [facility] [address] [place] [address] 12/28/2023 Darby Callaway [facility] [address] [place] [address] 12/28/2023 Darby Callaway Generalized idiopathic epilepsy and epileptic syndromes, not intractable, without status epilepticus G40.309 [facility] [address] [place] [address] 12/05/2023 Darby Callaway [facility] [address] [place] [address] 12/29/2023 Darbyimtiaz Callaway [facility] [address] [facility] [address] [place] [address] 02/28/2024 Darbyimtiaz Callaway [facility] [address] [facility] [address] [place] [address] 02/28/2024 Darby Callaway ASSESSMENTS Encounter Date Diagnosis Assessment Notes Treatment Notes Treatment Clinical Notes 12/28/2023 Generalized idiopathic epilepsy and epileptic syndromes, not intractable, without status epilepticus (ICD-10 - G40.309) 12/28/2023 Other Epilepsy: Care Instructions material was printed PLAN OF TREATMENT Next Appt Details Provider Name:Darby Kraft son, 03/26/2024 10:30:00 AM, [address], [facility] [address], [place], [address], Insurance Providers Payer Name Payer Address Payer Phone Subscriber Number Group Number Insured Name Patient Relationship to Insured Coverage Start Date Coverage End Date [facility] [address] [place] [address] [id number] Amber Childers Self - patient is the insured 2023 MEDICAL (GENERAL) HISTORY Medical History History ICD Code Seizures Generalized convulsive epilepsy without intractable epilepsy Asthma Atrial fibrillation with rapid ventricul ar response Cataract Depression DVT (deep venous thrombosis) Gastroesophageal reflux disease Heart attack (HC) Hyperlipidemia Hypertension Joint pain Morbid Obesity MRSA infection FERNIE (obstructive sleep apnea) Pain Sciatica Trouble swallowing History of gastric bypass Vitamin D deficiency Mid back pain on right side S/P gastric bypass with hiatal hernia re pair by Dr. Lopez Dysphagia Chronic pain of right knee Prediabetes Pseudophakia of left eye Myopia of both eyes Spondylosis Bone spur of foot Insomnia Refractory migraine without aura Metabolic syndrome Adjustment disorder with depressed mood Surgical History Surgery Date(Month/Year) Carpal Tunnel Release Cataract Extraction w/intraocular lens I mplant Dilation and curettage ESOPHAGOGASTRODUODENOSCOPY Stent placement, heart ROBOTIC LUPE-EN-Y GASTRIC BYPASS WITH HI ATAL HERNIA REPAIR LIGATE FALLOPIAN TUBE Hospitalization History Reason Date(Month/Year) Nonintractable epilepsy with out status epilepticus, unspecified epilepsy type (12/04/2020) Thee Seizure/other Convulsions (06/13/2023) F feliicta
--- OUTSIDE RECORDS SUMMARY | 2024-03-21 09:13 | XMS_ITS | Clinical Summary ---
Author Organization [employer] [facility] Address [place], [place] [address] Care Team Providers Care Childcare Center Administrator Name Role Phone Harvey Ely Primary Care Provider [phone] Jose Medina Unavailable [phone] Aleksandar Lopez MD Unavailable [phone] Elza Rubi RN Unavailable [phone] Unavailable [phone] Johanny Baires Unavailable Maria Antonia Santana RN Unavailable Allergies Active Allergy Reactions Criticality Noted Date Comments Clindamycin Other - Describe In Comment Field 04/14/2009 GI upset Milk Anaphylaxis High 02/16/2010 Dairy Products- respiratory problems Hydrocodone Nausea And Vomiting Medium 06/29/2012 Levofloxacin Headache 07/31/2012 Patient states it makes her nausea and gives her headaches Niacin Other - Describe In Comment Field 04/14/2009 Flushing and irregular hearbeat Nsaids (Non-Steroidal Anti-Inflammatory Drug) *Unknown 11/01/2022 This patient has a history of a Grecia-en-Y gastric bypass. AVOID NSAIDs and aspirin due to risk of gastric and/or G-J anastomotic ulcers. If Amber must be on short course of NSAIDs or aspirin, use enteric coated if possible and use PPI // Susie Oh RN, Bariatric Nurse , [facility] 11/01/2022. Penicillins Hives High 02/16/2010 Hives Simvastatin Other - Describe In Comment Field High 04/14/2009 Myalgias Statin Intolerance Documentation 2. Shared decision making discussion with patient regarding statins and patient choses to not trial a second or additional statin. 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 0 Active albuterol HFA (PRO-AIR; VENTOLIN; PROVENTIL) 90 mcg/actuation inhalerIndications :Cough,Wheezing Inhale 1-2 Puffs by mouth every 6 hours if needed for Shortness of Breath 1st choice or Wheezing 1st choice. 18 g 3 2 Active inhalational spacing deviceIndications: Cough,Wheezing For home use. 1 Each 2 Active Walker - 4 wheelsIndications: Bilateral primary osteoarthritis of knee For home use. Length of need: 99 months. 4 wheel walker for severe bilateral knee osteoarthritis. 1 Each 2 Active fluticasone propion-salmeteroL (Advair Diskus) 250-50 mcg/Dose diskus inhalerIndications :Wheezing,Cough,Hi story of asthma Inhale 1 puff twice daily as needed when sick with respiratory infection. Only uses if gets sick (resp infection) 3 Active pediatric multivitamin no.136 (Children Multivitamin) chewIndications:S/ P gastric bypass Chew 1 Tablet by mouth two times daily. 0 3 Active calcium citrate-vitamin D3, 315 mg-250 units, (CITRACAL WITH VITAMIN D) 315 mg-6.25 mcg (250 unit) tab tablet Take 2 Tablets by mouth two times daily with meals. 0 3 Active cyclobenzaprine (FLEXERIL) 10 mg tabletIndications: Mid back pain on right side Take 0.5-1 Tablets (5-10 mg) by mouth at bedtime if needed for Muscle Spasm. 30 Tablet 3 Active Metaxalone (SKELAXIN) 800 mg tabletIndications: Mid back pain on right side Take 1 Tablet (800 mg) by mouth three times daily. 30 Tablet 3 Active cholecalciferol, Vitamin D3, (Vitamin D-3) 5,000 unit tab tabletIndications: Vitamin D deficiency Take 1 Tablet (5,000 units) by mouth once daily. 90 Tablet 3 3 Active apixaban (Eliquis) 5 mg tabletIndications: Coronary artery disease involving inaja coronary artery without angina pectoris, unspecified whether inaja or transplanted heart Take 1 tablet by mouth twice daily 180 Tablet 3 3 Active EPINEPHrine (EPIPEN) 0.3 mg/0.3 mL auto-injectorIndic ations:Dairy allergy Inject 0.3 mg intramuscular every 5 minutes if needed for Allergic Reaction. 2 Each 3 3 Active lacosamide (VIMPAT) 50 mg tab tablet Take 150 mg by mouth two times daily. 3 Active nitroglycerin (NITROSTAT) 0.4 mg sublingual tabletIndications: Coronary artery disease involving inaja coronary artery without angina pectoris, unspecified whether inaja or transplanted heart Place 1 Tablet (0.4 mg) under the tongue every 5 minutes if needed for Chest Pain. 25 Tablet 3 Active durable medical equipment (DME)Indications:C lass 3 severe obesity with serious comorbidity and body mass index (BMI) of 40.0 to 44.9 in adult, unspecified obesity type (HC),Chronic pain of right knee Bath bench w/back 400# Narr Leg Base 17 1 Each 3 Active durable medical equipment (DME)Indications:C lass 3 severe obesity with serious comorbidity and body mass index (BMI) of 40.0 to 44.9 in adult, unspecified obesity type (HC),Chronic pain of right knee Walker Seat 1 Each 3 Active rosuvastatin (CRESTOR) 10 mg tabletIndications: Hyperlipidemia with target LDL less than 70 TAKE 1 TABLET BY MOUTH AT BEDTIME 90 Tablet 2 3 Active lisinopril-hydroch lorothiazide 20-12.5 mg tablet (PRINZIDE)Indicati ons:HTN (hypertension) Take 1 tablet by mouth once daily 90 Tablet 1 3 Active Pain Reliever, acetaminophen, 500 mg tabletIndications: Mid back pain on right side TAKE 2 TABLETS BY MOUTH EVERY 6 HOURS NEEDED FOR PAIN . DO NOT EXCEED 4000 MG OF ACETAMINOPHEN PER 24 HOURS 240 Tablet 4 Active cyanocobalamin (VITAMIN B12) 1,000 mcg sublingual tabletIndications: S/P gastric bypass Take 1 tablet by mouth once daily 90 Tablet 2 4 Active cyanocobalamin (VITAMIN B12) 1,000 mcg tabletIndications: S/P gastric bypass Take 1 Tablet (1,000 mcg) by mouth once daily. 90 Tablet 2 4 Active citalopram (CELEXA) 40 mg tabletIndications: Adjustment disorder with depressed mood Take 1 tablet by mouth once daily 90 Tablet 1 4 Active Multivitamin Cmb No.21-Iron-FA (Certavite-Antioxi dant) 18-400 mg-mcg tabIndications:Rou [facility] health maintenance,Histor y of gastric bypass Take 1 Tablet by mouth once daily. 90 Tablet 1 4 Active metoprolol succinate (TOPROL XL) 25 mg Sustained-Release tabletIndications: Coronary artery disease involving inaja coronary artery without angina pectoris, unspecified whether inaja or transplanted heart Take 1 Tablet (25 mg) by mouth once daily. 60 Tablet 3 4 Active Multivitamin Cmb No.21-Iron-FA (Certavite-Antioxi dant) 18-400 mg-mcg tabIndications:Rou [facility] health maintenance,Histor y of gastric bypass Take 1 Tablet by mouth once daily. 90 Tablet 3 3 024 Discontinued citalopram (CELEXA) 40 mg tabletIndications: Adjustment disorder with depressed mood Take 1 tablet by mouth once daily 90 Tablet 1 3 024 Discontinued Active Problems Problem Noted Date Diagnosed Date Obesity 08/10/2023 History of gastric bypass 03/02/2023 Vitamin D deficiency 02/15/2023 Mid back pain on right side 02/15/2023 S/P gastric bypass with hiatal hernia repair by Dr. Lopez 10/28/2022 Hiatal hernia 10/28/2022 Morbid obesity with BMI of 50.0-59.9, adult 06/2023 Depression, recurrent 09/15/2022 Chronic pain of right knee 08/31/2022 HTN (hypertension) 03/10/2022 History of asthma 01/20/2022 Prediabetes 08/27/2021 Pseudophakia of left eye 04/02/2021 Nuclear senile cataract of right eye 04/02/2021 Myopia of both eyes 04/02/2021 Spondylosis 02/16/2021 Hip pain, chronic, right 02/16/2021 Bone spur of foot 02/16/2021 Cataract of right eye 02/16/2021 Insomnia 06/23/2017 Hyperlipidemia with target LDL less than 70 07/16 Overview: IMO Update Spondylosis of lumbar region without myelopathy or radiculopathy 07/27/2015 Coronary artery disease invo lving inaja coronary artery without angina pectoris 02/03/2015 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 11/22/2013 Atrial fibrillation with RVR 05/03/2013 Refractory migraine without aura 02/15/2013 Degeneration of lumbar or lumbosacral interverte bral disc 02/10/2012 Metabolic syndrome 09/15/2011 Overview: IMO Update 07/26 Adjustment disorder with depressed mood 02/17/20 10 Gastroesophageal reflux disease Dysphagia Resolved Problems Problem Noted Date Diagnosed Date Resolved Date Morbid obesity with BMI of 45.0-49.9, adult 02/16/2021 10/24/2022 Morbid obesity with BMI of 40.0-44.9, adult 08/25/2011 10/24/2022 Encounters Date Type Department Care Team Description 03/12/2024 11:30 AM CDT Telemedicine [facility] [address] [place] [address] Urbano Moses MD Follow Up (Paroxysmal atrial fibrillation ) 02/29/2024 11:00 AM CDT Ancillary Procedure [facility] [address] [place] [address] 02/29/2024 Travel 02/27/2024 Refill [facility] [id number] [place] [id number] Harvey Ely PA Refill Request (Multivitamin) 02/26/[address] [address] Harvey Ely PA Refill Request (Citalopram) from Last 3 Months Immunizations Name Administration Dates Next Due COVID-19 vaccine ([employer] NTech 30mcg/0.3mL) 12YO+ [place]-SUCROSE PF, MDV 04/29/2022,12/09/2021 COVID-19 vaccine (K[employer] NTech 30mcg/0.3mL) PF, MDV 02/16/2021,01/26/2021 Hepatitis B (Adult) 11/11/2008,06/05/2008,2007 Hepatitis B, Unspecified 11/11/2008,06/05/2008,0 04/29/2008 Influenza Virus, Unspecified 07/31/2020, 07/23/2019,07/11/2018,2016,08/03/2016,07/03/2015,08/01/2013,1 ,08/25/2011,09/27/2010, 009,09/27/2006,08/03/2005 Influenza, High-dose Inactivated 07/16/2013 Influenza, High-dose Quadriv alent Inactivated 08/08/2023 Influenza, IIV3 (Age >=3 years) 08/01/20 13,08/25/2011,09/27/2010,2005,08/03/2005 Influenza, IIV4 07/15/2021, 0,07/23/2019,2017,07/13/2017,08/03/2016,07/21/2014 Influenza, IIV4 (=>6mos) MDV 07/03/2015 Influenza, Inactivated AIIV4 (Age 65+ Years) Preserv Free 07/07/2022 MMR 06/05/2008 Pneumococcal Conj 20-valent (Prevnar 20) 07/08/2022 Pneumococcal Poly,23-Valent (Pneumovax) 10/26/1999 Td (Age >=7 Years) 04/29/2008,05/26/1992 Tdap 02/07/2018,10/22/2007 Tdap, Unspecified 02/07/2018 Zoster (Shingrix-RZV, recombinant) 10/15/2020, Family History Medical History Relation Name Comments Hyperlipidemia Brother Hypertension Brother Obesity Brother Other Daughter tendonitis - sh e's a kelby Cancer Father multiple myelom a Leukemia Maternal Grandfather Cancer Mother islet cell carc inoma Coronary artery disease Mother trip le bypass Hyperlipidemia Mother Hypertension Mother Kidney disease Mother kidney remove d OCD Mother Obesity Mother Heart failure Sister Hyperlipidemia Sister Hypertension Sister Obesity Sister Alcoholism Son 1 sober x 10 year s Irritable bowel syndrome Son 2 Relation Name Status Comments Brother Alive Daughter Alive Father (Age 62) myeloma Maternal Grandfather Maternal Grandmother Mother (Age 81) islet cell carcinoma Paternal Grandfather (Age 60's) Leukemia Paternal Grandmother Sister (Age 61) Heart fail ure Son 1 Alive Son 2 Alive Social History Tobacco Use Types Packs/Day Years Used Date Smoking Tobacco: Never Smokeless Tobacco: Never Tobacco Cessation:Counseling Given: Not Answered Alcohol Use Standard Drinks/Week Comments Not Currently 0 (1 standard drink = 0.6 oz pur e alcohol) PHQ-2 Answer Date Recorded PHQ-2 TOTAL SCORE 1 10/25/2023 Social Connections Answer Date Recorded Frequency of Communication with Friends and Fami ly 4 10/23/2023 Financial Resource Strain Answer Date R ecorded Difficulty of Paying Living Expenses 3 10/23/2023 Difficulty of Paying Living Expenses Not on file 10/23/2023 Food Insecurity Answer Date Recorded Worried About Running Out of Food in the Last Ye ar 1 10/23/2023 Transportation Needs Answer Date Record ed Lack of Transportation (Medical) 1 10/23/2023 Housing Stability Answer Date Recorded Unable to Pay for Housing in the Last Year 1 10/23/2023 Sex and Gender Information Value Date Recorded Sex Assigned at Not on file Gender Identity Not on file Sexual Orientation Not on file Obstetrics History Last Filed Vital Signs Vital Sign Reading Time Taken Comments Blood Pressure 124/70 10/25/2023 11:14 AM PROFESSOR OF ENVIRONMENTAL ENGINEERING Pulse 84 06/21/2023 1:26 PM CDT Temperature 36.7 ??C (98.1 ??F) 01/19/2023 3:48 PM CD T Respiratory Rate 18 10/29/2022 7:00 AM PROFESSOR OF ENVIRONMENTAL ENGINEERING Oxygen Saturation 97% 02/28/2023 2:12 PM CDT Inhaled Oxygen Concentration - - Weight 123.4 kg (272 lb) 10/25/2023 11:14 AM PROFESSOR OF ENVIRONMENTAL ENGINEERING Height 165.1 cm (5' 5) 10/25/2023 11:14 AM PROFESSOR OF ENVIRONMENTAL ENGINEERING Body Mass Index 45.26 10/25/2023 11:14 AM PROFESSOR OF ENVIRONMENTAL ENGINEERING Plan of Treatment Health Maintenance Due Date Last Done Comments Hepatitis C screening for ag e 18-79 1975 Influenza for age 65+ 06/16/2024 08/08/2023 , 07/07/2022, 07/15/2021, Additional history exists Colonoscopy through age 75 08/15/202408/15, 08/15/2014 (Verified in Care Everywhere or Patient Record) Mammogram for age 45-75 09/19/2024 09/19/2023, 05/26 BMI (ht and wt on same day) for age 18+ 10/25/2024 10/25/2023, 11/14/2022, 10/13/2022, Additional history exists Medicare Wellness for age 65+ 10/25/2024, 09/15/2022, 09/14/2021 Depression screening for age 12+ 10/27/2024 10/27/2023, 10/26/2023, 10/25/2023, Additional history exists Tetanus booster 02/08/2028 02/07/2018, 01/15, 04/29/2008, Additional history exists Lipids for age 45-75 10/25/2028 10/25/2023, 06/30/2023, 06/21/2023, Additional history exists Tdap Completed 02/07/2018, 01/15, 10/22/2007 Zoster (shingles) series for age 50+ Completed 10/15/2020, 07/31/2020 Pneumococcal series for age 65+ Completed , 10/26/1999 DEXA/DXA scan for age 65+ Completed 01/23/2023 COVID-19 vaccine series Completed 08/08/20, 07/08/2022, 04/29/2022, Additional history exists Procedures Procedure Name Priority Date/Time Associated Diagnosis Comments ECHO TTE COMPLETE W CONTRAST Routine 02/29/2024 11:52 AM CDT Coronary artery disease involving inaja coronary artery without angina pectoris, unspecified whether inaja or transplanted heart LIPID PANEL W REFLEX MEASURED LDL Routine 10/25/2023 12:20 PM PROFESSOR OF ENVIRONMENTAL ENGINEERING Hyperlipidemia with target LDL less than 70 XR MAMMO SABRINA BILAT SCREEN Routine 09/19/2023 1:08 PM PROFESSOR OF ENVIRONMENTAL ENGINEERING Visit for screening mammogram XR DXA BONE DENSITY 2 SITES AXIAL Routine 01/23/2023 2:32 PM CDT Menopause SCAN-COLONOSCOPY 08/15/2014 12:0 0 AM CDT from Last 3 Months or Most Recently Relevant to Health Maintenance Results * ECHO TTE COMPLETE W CONTRAST (02/29/2024 11:52 AM CDT) AORTIC VALVE MEAN PG 5 mmHg EJECTION FRACTION 54 % LVEDD 5.5 cm EJECTION FRACTION 55 - 60% Anatomical Region Laterality Modality Ultrasound 02/29/2024 11:2 0 AM CDT Narrative 02/29/2024 5:07 PM CDT ECHOCARDIOGRAM AMBER HUA ? Accession#: ?? [id number] : ?1955 68 years Study Date: ?? 02/29/2024 11:20:35 AM Gender: F ?BP: ? 125/64 mmHg Height: 165.00 cm ?BSA: ?2.27 m? ? ? Weight: 125.00 kg ?Tech: ? MJS ? Referring MD: YESI MCKEON Site: ? [facility] Reading Location: Mobile OP Patient Location: Outpatient. Procedure: Color Doppler, Spectral Doppler and 2D w/ Contrast. Indication for study: CAD Cardiac Rhythm: Normal sinus.Study quality: Technically limited. Final Impressions: 1. Technically limited exam. 2. Normal LV size, mildly increased wall thickness, normal global systolic function with an estimated EF of 55 - 60%. 3. Mildly enlarged left atrium. 4. The ascending aorta is dilated with a maximal diameter of 4.1 cm. 5. Echo contrast was administered to enhance visualization of all left ventricular segments. 6. No significant valve disease detected. Comparison Compared to prior exam images and report of 12/10/2021, there has been no significant change. Chamber Sizes and Function Normal left ventricular size, mildly increased wall thickness, normal global systolic function with an estimated EF of 55 - 60%. Left atrial size is mildly enlarged. Right ventricular cavity size is normal, global systolic RV function is normal. The right atrium is normal. Right atrial area is 16 cm? ? ?. The pulmonary artery is of normal size and origin. The sinus of Valsalva is normal sized. The ascending aorta is dilated. Valves, RV Pressures and Diastolic Function The aortic valve is trileaflet, no stenosis and no regurgitation. The mitral valve is normal in structure, no mitral regurgitation. Indeterminate pattern of LV diastolic filling. The tricuspid valve is normal in structure. Tricuspid regurgitation is regurgitation is not evident. The pulmonic valve is normal. No pulmonary regurgitation. TTE images do not appear adequate for transcather intervention with patient supine. Masses, Effusion, Shunts There is no pericardial effusion. The inferior vena cava is normal sized, respiratory size variation not well visualized. No left to right shunting was detected by limited color flow Doppler interrogation of the interatrial septum. MEASUREMENTS AND CALCULATIONS 2-D Measurements and LV Function: LVID (d) 5.5 cm LV FS% (2D) ?? 40 % LVID (s) 3.3 cm LVOT diameter 2.1 cm IVS (d) ??1.2 cm HR ?56 bpm LVPW (d) 1.0 cm RA area ? 16 cm? ? ? Ao Sinus 3.6 cm RV Max 4C (d) 3.6 cm Asc Ao ?? 4.1 cm Diastology: Mitral ?Tissue Doppler E Peak 0.7 m/s ??e', Septum ? 0.10 m/s A Peak 0.7 m/s ??e', Lateral ?0.08 m/s E/A ?0.9 ?E/e' Average ?? 7.40 DT ? 216 msec Aortic Valve: Vmax ? 1.5 m/s ??GREG (V) ?? 2.24 cm? ? ? VTI ?0.37 m ?? GREG (I) ?? 2.29 cm? ? ? LVOT V max 1.0 m/s ??Max PG ?9 mmHg LVOT VTI ?? 0.25 m ?? Mean PG ?? 5 mmHg SV ? 85 ml ?Dim Index 0.68 SV index ?? 37 ml/m? ? ? CO ?4.7 l/min ?CI ?2.1 l/min/m? ? ? Mitral Valve: MVA ?3.5 cm? ? ? MV P 1/2 63 msec Tricuspid Valve and estimated PA pressures: TAPSE 2.3 cm . This study was interpreted by an [facility] accredited facility. ??Final ?? Procedure Note Chantelle Hemphill MD - 02/29/2024 ECHOCARDIOGRAM AMBER HUA : 1955 68 years Study Date: 02/29/2024 11:20:35 AM Gender: F BP: 125/64 mmHg Height: 165.00 cm BSA: 2.27 m? ? ? Weight: 125.00 kg Tech: RANDY Referring MD: YESI MCKEON Site: [facility] Reading Location: Mobile OP Patient Location: Outpatient. Procedure: Color Doppler, Spectral Doppler and 2D w/ Contrast. Indication for study: CAD Cardiac Rhythm: Normal sinus.Study quality: Technically limited. Final Impressions: 1. Technically limited exam. 2. Normal LV size, mildly increased wall thickness, normal globalsystolic function with an estimated EF of 55 - 60%. 3. Mildly enlarged left atrium. 4. The ascending aorta is dilated with a maximal diameter of 4.1 cm. 5. Echo contrast was administered to enhance visualization of all leftventricular segments. 6. No significant valve disease detected. Comparison Compared to prior exam images and report of 12/10/2021, there has been nosignificant change. Chamber Sizes and Function Normal left ventricular size, mildly increased wall thickness, normalglobal systolic function with an estimated EF of 55 - 60%. Left atrialsize is mildly enlarged. Right ventricular cavity size is normal, globalsystolic RV function is normal. The right atrium is normal. Right atrialarea is 16 cm? ? ?. The pulmonary artery is of normal size and origin. Thesinus of Valsalva is normal sized. The ascending aorta is dilated. Valves, RV Pressures and Diastolic Function The aortic valve is trileaflet, no stenosis and no regurgitation. Themitral valve is normal in structure, no mitral regurgitation.Indeterminate pattern of LV diastolic filling. The tricuspid valve isnormal in structure. Tricuspid regurgitation is regurgitation is notevident. The pulmonic valve is normal. No pulmonary regurgitation. TTEimages do not appear adequate for transcather intervention with patientsupine. Masses, Effusion, Shunts There is no pericardial effusion. The inferior vena cava is normal sized,respiratory size variation not well visualized. No left to right shuntingwas detected by limited color flow Doppler interrogation of theinteratrial septum. MEASUREMENTS AND CALCULATIONS 2-D Measurements and LV Function: LVID (d) 5.5 cm LV FS% (2D) 40 % LVID (s) 3.3 cm LVOT diameter 2.1 cm IVS (d) 1.2 cm HR 56 bpm LVPW (d) 1.0 cm RA area 16 cm? ? ? Ao Sinus 3.6 cm RV Max 4C (d) 3.6 cm Asc Ao 4.1 cm Diastology: Mitral Tissue Doppler E Peak 0.7 m/s e', Septum 0.10 m/s A Peak 0.7 m/s e', Lateral 0.08 m/s E/A 0.9 E/e' Average 7.40 DT 216 msec Aortic Valve: Vmax 1.5 m/s GREG (V) 2.24 cm? ? ? VTI 0.37 m GREG (I) 2.29 cm? ? ? LVOT V max 1.0 m/s Max PG 9 mmHg LVOT VTI 0.25 m Mean PG 5 mmHg SV 85 ml Dim Index 0.68 SV index 37 ml/m? ? ? CO 4.7 l/min CI 2.1 l/min/m? ? ? Mitral Valve: MVA 3.5 cm? ? ? MV P 1/2 63 msec Tricuspid Valve and estimated PA pressures: TAPSE 2.3 cm . This study was interpreted by an [facility] accredited facility. Final Yesi Mckeon MD ECHO ORD * (ABNORMAL) LIPID PANEL W REFLEX MEASURED LDL (10/25/2023 12:20 PM PROFESSOR OF ENVIRONMENTAL ENGINEERING) CHOLESTEROL,TOTAL 183 100 - 199 mg/dL 10/25/2023 9:56 PM [facility] Comment: Cholesterol, Total Reference Ranges Desirable <200 mg/dL Borderline 200-239 mg/dL High >=240 mg/dL TRIGLYCERIDES 252(H) <150 mg/dL 10/25/2023 9:56 PM PROFESSOR OF ENVIRONMENTAL ENGINEERING [facility] HDL CHOLESTEROL 45 >40 mg/dL 9:56 PM PROFESSOR OF ENVIRONMENTAL ENGINEERING [facility] NON-HDL CHOLESTEROL 138 <145 mg/dl 10/25/2023 9:56 PM PROFESSOR OF ENVIRONMENTAL ENGINEERING [facility] CHOL/HDL RATIO 4.07 <4.50 10/25/2023 9:56 PM PROFESSOR OF ENVIRONMENTAL ENGINEERING [facility] LDL CHOLESTEROL 88 <=130 mg/dL 10/25/2023 9:56 PM PROFESSOR OF ENVIRONMENTAL ENGINEERING [facility] VLDL CHOLESTEROL 50(H) <=30 mg/dL 10/25/2023 9:56 PM [facility] PROVIDER ORDERED STATUS RANDOM 10/25/2023 9:56 PM [facility] Blood BLOOD SPECIMEN / Unknown Venipuncture / Unknown 10/25/2023 12:20 PM PROFESSOR OF ENVIRONMENTAL ENGINEERING 10/25/2023 12:23 PM PROFESSOR OF ENVIRONMENTAL ENGINEERING Harvey CORTES CHEMISTRY [facility] [address] [place] [address], [place] * XR MAMMO SABRINA BILAT SCREEN (09/19/2023 1:08 PM PROFESSOR OF ENVIRONMENTAL ENGINEERING) Anatomical Region Laterality Modality BREASTS, Breast Left, Breast Right Bilateral Mammography Impressions 09/19/2023 4:06 PM PROFESSOR OF ENVIRONMENTAL ENGINEERING ??There is no radiographic evidence for malignancy. ??Recommend annual mammograms. MAMMOGRAM ASSESSMENT: ??ACR 1 Negative PATIENTS: You will also receive a letter with your examination results in an easy to read format. ??If you have questions about your results, please contact your referring provider. Narrative 09/19/2023 4:06 PM PROFESSOR OF ENVIRONMENTAL ENGINEERING For Patients: As a result of the Cures Act, medical imaging exams and procedure reports are released immediately into your electronic medical record. You may view this report before your referring provider. If you have questions, please contact your health care provider. XR MAMMO SABRINA BILAT SCREEN [[id number]] CLINICAL HISTORY: ??This is an asymptomatic 68 y.o. patient. INDICATION FOR EXAM: Mammogram Screening. TECHNIQUE: CC & MLO views were obtained. ??This study was evaluated with the assistance of Computer-Aided Detection. Breast Tomosynthesis was used in interpretation. COMPARISON FILM: Yes 05/26/22 [facility] ?? FINDINGS: ??The breasts have scattered areas of fibroglandular density. There are no dominant masses, suspicious micro calcifications or areas of architectural distortion. Harvey CORTES MAMMO * XR DXA BONE DENSITY 2 SITES AXIAL (01/23/2023 2:32 PM CDT) Anatomical Region Laterality Modality Spine, HIPS, HIPL, HIPR Computed Radiography 01/23/2023 2:32 PM CDT Impressions 01/23/2023 4:04 PM CDT NORMAL. Bone mineral density measurements are within normal limits using T score. Narrative 01/23/2023 4:04 PM CDT For Patients: As a result of the Cures Act, medical imaging exams and procedure reports are released immediately into your electronic medical record. You may view this report before your referring provider. If you have questions, please contact your health care provider. EXAM: XR DXA BONE DENSITY 2 SITES AXIAL LOCATION: [facility] DATE/TIME: 01/23/2023 2:32 PM INDICATION: I. Other (screening-at minimum one option in 2-5 must be selected) - z13.820. Menopause. DEMOGRAPHICS: Age- 67 years. Gender- Female. Menopausal status- Postmenopausal. COMPARISON: None. TECHNIQUE: Dual-energy x-ray absorptiometry (DXA) performed with routine technique. FINDINGS: DXA RESULTS -Lumbar Spine: L1-L4: BMD: 1.233 g/cm2. T-score: 0.4. Z-score: 0.9. Degenerative change may artifactually increase BMD. -RIGHT Hip Total: BMD: 1.111 g/cm2. T-score: 0.8. Z-score: 1.2. -RIGHT Hip Femoral neck: BMD: 1.024 g/cm2. T-score: -0.1. Z-score: 0.6. -LEFT Hip Total: BMD: 1.092 g/cm2. T-score: 0.7. Z-score: 1.1. -LEFT Hip Femoral neck: BMD: 0.921 g/cm2. T-score: -0.8. Z-score: -0.1. WHO T-SCORE CRITERIA -Normal: T score at or above -1 SD -Osteopenia: T score between -1 and -2.5 SD -Osteoporosis: T score at or below -2.5 SD The World Health Organization (WHO) criteria is applicable to perimenopausal females, postmenopausal females, and men aged 50 years or older. FRACTURE RISK -The FRAX risk calculator is not applicable due to normal bone mineral density. Procedure Note So, Gerson Gudino MD - 01/23/2023 For Patients: As a result of the Cures Act, medical imagingexams and procedure reports are released immediately into your electronicmedical record. You may view this report before your referring provider.If you have questions, please contact your health care provider. EXAM: XR DXA BONE DENSITY 2 SITES AXIAL LOCATION: [facility] DATE/TIME: 01/23/2023 2:32 PM INDICATION: I. Other (screening-at minimum one option in 2-5 must beselected) - z13.820. Menopause. DEMOGRAPHICS: Age- 67 years. Gender- Female. Menopausal status-Postmenopausal. COMPARISON: None. TECHNIQUE: Dual-energy x-ray absorptiometry (DXA) performed with routinetechnique. FINDINGS: DXA RESULTS -Lumbar Spine: L1-L4: BMD: 1.233 g/cm2. T-score: 0.4. Z-score: 0.9.Degenerative change may artifactually increase BMD. -RIGHT Hip Total: BMD: 1.111 g/cm2. T-score: 0.8. Z-score: 1.2. -RIGHT Hip Femoral neck: BMD: 1.024 g/cm2. T-score: -0.1. Z-score: 0.6. -LEFT Hip Total: BMD: 1.092 g/cm2. T-score: 0.7. Z-score: 1.1. -LEFT Hip Femoral neck: BMD: 0.921 g/cm2. T-score: -0.8. Z-score: -0.1. WHO T-SCORE CRITERIA -Normal: T score at or above -1 SD -Osteopenia: T score between -1 and -2.5 SD -Osteoporosis: T score at or below -2.5 SD The World Health Organization (WHO) criteria is applicable toperimenopausal females, postmenopausal females, and men aged 50 years orolder. FRACTURE RISK -The FRAX risk calculator is not applicable due to normal bone mineraldensity. IMPRESSION: NORMAL. Bone mineral density measurements are within normal limits using Tscore. Harvey CORTES DEXA * SCAN-COLONOSCOPY (08/15/2014 12:00 AM CDT) Scanner OTHER from Last 3 Months or Most Recently Relevant to Health Maintenance Advance Directives * Full Code (Latest Code Status on File) Date Activated Date Inactivated Comments 10/28/2022 3:11 PM 10/29/2022 2:40 PM Question Answer Comments Code Status Discussion: Reviewed Preferences * Full Code Date Activated Date Inactivated Comments 10/28/2022 10:29 AM 10/28/2022 3:11 PM Question Answer Comments Code Status Discussion: Not Discussed * Full Code Date Activated Date Inactivated Comments 10/10/2022 10:38 AM 10/10/2022 3:01 PM Question Answer Comments Code Status Discussion: Reviewed Preferences * Full Code Date Activated Date Inactivated Comments 05/03/2022 11:08 AM 05/03/2022 1:44 PM Question Answer Comments Code Status Discussion: Reviewed Preferences Care Teams Childcare Center Administrator Relationship Specialty [place] [address] [place] [address] PCP - General Physician Service Secretary 10/14/20 [place] [address] [place] [address] Consulting Physician Physician Service Secretary 07/02/21 Aleksandar Lopez MD [address] [phone] Consulting Physician Surgery - General 03/03/22 Elza Rubi RN [address] [id number] Fiber Heel Piece Shaper Registered Nurse 03/03/[address] [address] Jackscrew Man/Motor Electrician Continuity Manager 03/03/22 Johanny Baires PA [address] 235889 Physician Service Secretary 11/03/22 Maria Antonia Santana RN [address] [place] [phone] [employer] - [facility] [place] Registered Nurse 04/07/23 Mohini Gamboa RN [place] 121233 [facility] [address] [place], [place] [address] Sergeant At [employer] - [facility] 03/16/23
--- OUTSIDE RECORDS SUMMARY | 2024-03-21 09:13 | XMS_ITS | Encounter Summary ---
Author Organization [employer] Address [address], [place] [address] Care Team Providers Care Hot Car Charger Name Role Phone Harvey Ely PA-C Primary Care Provider [phone] Reason for Visit * Reason Comments QUESTIONS, GENERAL Encounter Details Date Type Department Care Team (Late st Contact Info) Description 02/21/2024 Telephone [facility] [address] [place] [address] [place] [address] [facility] [address] [place] [address] QUESTIONS, GENERAL Social History Tobacco Use Types Packs/Day Years Used Date Smoking Tobacco: Never Sex and Gender Information Value Date Recorded Sex Assigned at Not on file Gender Identity Not on file Sexual Orientation Not on file documented as of this encounter Nursing Notes * Linda Palmer - 02/22/2024 9:11 AM CDT As directed by Provider, Pt contacted regarding the combination of diflocan and eliquis. Pt instructed that she would be able to use the cream if it called for it or no oral would be allowed. Pt alsoinstructed that the 1,000 mg TID she's been taking is fine to continue. Pt denied any further questions or concerns at this time and was satisfied with the plan of care. -CM * Chaim Webster MD - 02/21/2024 4:24 PM CDT Patient to be informed that she can not be on diclofenac and eliquis at the same time. She can use diclofenac (voltaren) cream, but not the pills. She can also take tylenol 1000 mg TID Chaim Webster MD 4:25 PM 02/21/2024 * Camelia Azevedo RN - 02/21/2024 3:38 PM CDT Action: New order Next Step: Review associated dx/order for accuracy and sign pended orders, if appropriate. and Caller IS expecting a call back from care team. Specific Request(s): 1. Pt is requesting Diclofenac sodium 40 mg tabs. States she was on this before and gave her reliefand she is in a severe amount of pain in bilateral knees. KRAINA: 11/06/23 Bilateral knee pain * Bushra Goss - 02/21/2024 2:21 PM CDT GENERAL QUESTIONS How may we help you today? Pt is requesting provider prescribes Diclofenac sodium 40 mg tabs. States she was on this before and gave her relief and she is in a severe amount of pain. Please advise Describe your symptoms/concerns: bilateral knee pain When did the issue start: na Have you been seen for this recently?: Yes: Date: 11/06/23 Provider: Darin If we are unable to reach you can we leave a detailed message on your voicemail? Yes If we are unable to reach you can we send you a message in [employer]? No [Flare Worker/Land Management Forester: Relay to patient; We make every effort to get back to you sameday, however it may take 1-2 business days depending on the nature of the communication.] documented in this encounter Plan of Treatment Upcoming Encounters Date Type Department Care Team (Late st Contact Info) Description 03/27/2024 3:15 PM CDT [facility] [address] [place] [phone] [place] [address] [facility] [address] [place] [address] documented as of this encounter Visit Diagnoses Diagnosis Primary osteoarthritis of both knees- Primary Primary localized osteoarthrosis, lower leg documented in this encounter Care Teams Hot Car Charger Relationship Specialty Start Date End Date Harvey Ely, PARafaC [address] [place] [address] PCP - General Physician Progressive Care Unit Registered Nurse 10/23/23 documented as of this encounter
--- OUTSIDE RECORDS SUMMARY | 2024-03-21 09:13 | XMS_ITS | Encounter Summary ---
Author Organization [facility] Address [address] [address] Phone Care Team Providers Care Informatica Mdm Developer Name Role Phone Gabby Aaron MD Primary Care Provider + [phone] Hugh Argueta FOOT DOCTOR, MANAGER STARS Unavailable + [phone] Sergio Galdamez FOOT DOCTOR, MANAGER STARS Unavailable + Heidy Mulligan Unavailable Unavailable Encounter Details Date Type Department Care Team (Late st Contact Info) Description 07/29/2014 Orders Only [facility] [address] [place], [place] [id number] Rose Paniagua Obesity, Class II, BMI 35.0-39.9, with comorbidity (see actual BMI) (HCC) Social History Tobacco Use Types Packs/Day Years Used Date Smoking Tobacco: Never Smokeless Tobacco: Never Alcohol Use Standard Drinks/Week Comments No 0 (1 standard drink = 0.6 oz pur e alcohol) no Sex and Gender Information Value Date Recorded Sex Assigned at Not on file Gender Identity Not on file Sexual Orientation Not on file Job Start Date Occupation Industry Not on file Not on file Not on file documented as of this encounter Plan of Treatment Not on file documented as of this encounter Visit Diagnoses Diagnosis Obesity, Class II, BMI 35.0-39.9, with comorbidity (see actual BMI) Obesity, unspecified documented in this encounter Care Teams Informatica Mdm Developer Relationship Specialty Start Date End Date Gabby Aaron MD [address] [place] [address] PCP - General Family Medicine 06/29/12 11/20/17 Hugh Argueta APRN, MANAGER STARS [address] [place] [phone] PCP - PC Team Family Medicine 07/31/15 02/06/18 Sergio Galdamez APRN, MANAGER STARS [address] [place] [phone] PCP - PC Team Family Medicine 02/07/18 03/21/19 Heidy Mulligan Community Health Worker 07/24/19 12/07/20 documented as of this encounter
== END 2024-03-03 11:50 | disposition home or self-care (01) ==
LOC: NFLDREF 03-21 09:10
PROVIDERS: PCP Physician Assistant Medical; Referring Provider Physician Assistant Medical; Visit Provider Registered Nurse
DX: N39.0 Urinary tract infection, site not specified (principal); N30.00 Acute cystitis without hematuria; M62.830 Muscle spasm of back
CPT/HCPCS: 87086; 87186

== ENCOUNTER 2025-03-17 17:26 | Emergency (ER) | payer OTHER, SELFPAY ==
--- OUTSIDE RECORDS SUMMARY | 2022-11-24 06:30 | XMS_ITS | Continuity of Care Document ---
Author Organization [facility] Address [address] [place] [address] Phone Care Team Providers Care Electric Deicer Assembler Name Role Phone April Guallpa MD Unavailable [...] Imaging FLUOROGUIDE FOR SPINE INJECTION OFFICE/OUTPATIENT VISIT, [facility] Inj anes agt/steroid; narda salgado/adryan narayan Right Inj anes agt/steroid; narda salgado/adryan ce Right Drug Urine Toxology With Chromatography OFFICE/OUTPATIENT VISIT, [facility] Advance Directives Directive Yes / No Effective Date File Name No Information Encounters Encounter Description Practice Location Reason(s) For Visit Diagnoses Date Provider Providers Copied on Encounter [facility], [address] [facility] [place], [place], [id number] , [place] tel:[phone] [facility] Pain in right knee 3 Ramu Chen. [address] [facility] [place], [place], [id number] , [place]. tel:[phone] Referring Provider: Nate Lynn, [facility] [address] [facility], [address], [place], [address]. tel:[phone] OFFICE/OUTPA TIENT VISIT, [facility] Telehealth [facility], [address] [place] [address] [place], [id number] , [place] tel: [phone] [facility] [place] right knee pain (chief complaint) ObesityOther chronic painUnilateral primary osteoarthritis of right kneeRadiculopathy , lumbar region 3 Abdelrahman Sullivan. [address] [place] [address] [place], [id number] , [place]. tel: [phone] Referring Provider: Nate Bennett, [address] [place] [address], [address]. tel:[phone] [facility], [address] [place] [address], [id number] , [place] tel: [phone] [facility] Pain in right knee 3 Ramu Chen. [address] [place] [address] [place], [id number] , [place]. tel: [phone] [facility], [address] [place] [address] [place], [id number] , [place] tel: [phone] [facility] Pain in right knee 3 Ramu Chen. [address] [place] [address] [place], [id number] , [place]. tel: [phone] Referring Provider: Nate Lynn, [facility] [address], [address], [place], [address]. tel:[phone] [facility], [address] [place] [address] [place], [id number] , [place] tel: [phone] [facility] Pain in right knee 2 Ramu Chen. [address] [place] [address] [place], [id number] , [place]. tel: [phone] Referring Provider: Nate Lynn, [facility] [address], [address], [place], [address]. tel:[phone] [facility], [address] [place] [address] [place], [id number] , [place] tel:[phone] [facility] Unilateral primary osteoarthritis of right kneePain in right knee 2 [place]on Chen. [address] [place], [place], [id number] , [place]. tel: [phone] [facility], [address] [facility] [address] [place], [place], [address] , [place] tel: [phone] [facility] [place] No Information 2 Will Nate. [address] [facility] [place], [id number] , [place]. tel:[phone] OFFICE/OUTPA TIENT VISIT, NEW [facility], [address] [facility] [address] [place], [place], [address] , [place] tel: [phone] [facility] [place] Right Knee Pain (chief complaint) Other chronic painObesityUnilat eral primary osteoarthritis of right kneeRadiculopathy , lumbar regionEncounter for screening for other disorder 2 Will Nate. [address] [facility] [address] [place], [place], [id number] , [place]. tel:[phone] Referring Provider: Nate Lynn, [facility] [address] [facility] [address], [place], [address]. tel:[phone] Family History Family Member Type Diagnosis Age At Onset No Information Payers Payer name Insurance type Covered libertarian ID Authoriza tion(s) Medicare [id number] [facility] MSC Plus Supplement [id number] Social History Type Description Quantity Date Captured [...] due Goal CT-Colonography. Due on due Goal Weight. Due on [...] Goal PHQ-9. Due on du e Goal Zoster vaccine ( 1st). Due on due Goal FIT. Due on due Goal PHQ-9. Due on du e Goal Unhealthy drug u se screening. Due on due Goal Weight. Due on d ue Goal Hepatitis C scre ening. Due on due Goal Tobacco Use. Due on due Goal CT-Colonography. Due on due Goal HPV. Due on due Goal FIT-DNA. Due on due Goal Review Allergy L ist. Due on due Goal Lipid panel. Due on due Goal Height. Due on d ue Goal Update Social Hi story. Due on due Goal Medication Recon ciliation. Due on due Goal PHQ-9. Due on du e Goal Hepatitis C scre ening. Due on due Goal Tobacco Use. Due on due Goal Zoster vaccine ( 1st). Due on due Goal Medication Recon ciliation. Due on due Goal Update Social Hi story. Due on due Goal Weight. Due on d ue Goal Unhealthy drug u se screening. Due on due Goal Height. Due on d ue Goal CT-Colonography. Due on due Goal FIT-DNA. Due on due Goal FIT. Due on due Goal HPV. Due on due Goal Lipid panel. Due on due Goal Review Allergy L ist. Due on due Goal Hepatitis C scre ening. Due on due Goal Unhealthy drug u se screening. Due on due Goal FIT. Due on due Goal Height. Due on d ue Goal Medication Recon ciliation. Due on due Goal FIT-DNA. Due on due Goal Weight. Due on d ue Goal Tobacco Use. Due on due Goal PHQ-9. Due on du e Goal Review Allergy L ist. Due on due Goal HPV. Due on due Goal CT-Colonography. Due on due Goal Zoster vaccine ( 1st). Due on due Goal Lipid panel. Due on due Goal Update Social Hi story. Due on due Goal Review Allergy L [...] C scre ening. Due on due Goal HPV. Due on due Goal CT-Colonography. Due on due Goal Zoster vaccine ( 1st). Due on due Goal Lipid panel. Due on 022 due Goal Update Social Hi story. Due on due Future Order: Radiology Order [...] ice, pain/RX meds and OTC medicines (). Right Knee Pain Onset: 2 months ago. Severity level is 10. It occurs constantly. Location: right knee. The pain is aching, sharp and throbbing. The pain is aggravated by climbing (and descending) stairs, movement, walking and changing positions. The pain is relieved by rest, heat, rest, sitting and meds. Comments: Allie vaca is a 67 year old female with a recent hx of right knee and low back pain who presents for a new patient visit. She was referred by Dr. La at [facility] for possible a genicular RF workup. Patient reports right knee pain began 2 months ago and that she has been evaluated at [facility] by Dr. Lynn. She has done cortisone and PEGUEOR injections with no relief. Currently manages pain [...] her hx of epilepsy and heart disease. Functional Status Date Functional Assessmen t No Information Instructions Date Instruction Additional Infor mation No Information Assessments Type Assessment Date No Information Patient Care Teams Name Effective Dates (start - stop) Status Members No Information
--- OUTSIDE RECORDS SUMMARY | 2022-11-24 06:30 | XMS_ITS | Continuity of Care Document ---
Author Organization [facility] enter Address [address] [place] [address] Phone Care Team Providers Care Injury Prevention Coordinator Name Role Phone [facility] Unavailable Unava ilable Procedures Procedure Date [...] Diagnoses Date Provider Providers Copied on Encounter [facility], [address] [place] [address], [id number], [place] tel:[phone] [facility] No Information 3 [facility]. [address] [place] [address], [id number], [place]. tel:[phone] Referring Provider: April Guallpa, [address] [facility] [place], [address] . tel:[phone] [facility], [address] [place] [address], [id number], tel:[phone] [facility] No Information [facility]. [address] [place] [address] 11 [facility] [address], [place], [place], [id number], [place]. tel:[phone] Referring Provider: April Guallpa, [address] [facility] [place], [address] . tel:[phone] Family History Family Member Type Diagnosis Age At Onset No Information Payers Payer name Insurance type Covered democrat ID Emre martinez(s) Medicare MB [id number] [facility] MSC Plus Supplement [id number] Social History Type Description Quantity Date Captured [...]
--- OUTSIDE RECORDS SUMMARY | 2022-11-24 06:30 | XMS_ITS | Continuity of Care Document ---
Author Organization [facility] Address [address] [place] [address] Phone Care Team Providers Care Chief Cruiser Name Role Phone April Guallpa MD Unavailable [...] Imaging FLUOROGUIDE FOR SPINE INJECTION OFFICE/OUTPATIENT VISIT, [facility] Inj anes agt/steroid; narda salgado/adryan narayan Right Inj anes agt/steroid; narda salgado/adryan ce Right Drug Urine Toxology With Chromatography OFFICE/OUTPATIENT VISIT, [facility] Advance Directives Directive Yes / No Effective Date File Name No Information Encounters Encounter Description Practice Location Reason(s) For Visit Diagnoses Date Provider Providers Copied on Encounter [facility], [address] [facility] [place], [id number] , [place] tel:[phone] [facility] Pain in right knee 3 Ramu Chen. [address] [facility] [address] [place], [place], [id number] , [place]. tel:[phone] Referring Provider: Nate Lynn, [facility] [address] [facility], [address], [place], [address]. tel:[phone] OFFICE/OUTPA TIENT VISIT, [facility] Telehealth [facility], [address] [place] [address] [place], [id number] , [place] tel: [phone] [facility] [place] right knee pain (chief complaint) ObesityOther chronic painUnilateral primary osteoarthritis of right kneeRadiculopathy , lumbar region 3 Abdelrahman Sullivan. [address] [place] [address] [place], [id number] , [place]. tel: [phone] Referring Provider: Nate Bennett, [address] [place] [address], [address]. tel:[phone] [facility], [address] [place] [address], [id number] , [place] tel: [phone] [facility] Pain in right knee 3 Ramu Chen. [address] [place] [address] [place], [id number] , [place]. tel: [phone] [facility], [address] [place] [address] [place], [id number] , [place] tel: [phone] [facility] Pain in right knee 3 Ramu Chen. [address] [place] [address] [place], [place], [id number] , [place]. tel: [phone] Referring Provider: Nate Lynn, [facility] [address], [address], [place], [address]. tel:[phone] [facility], [address] [place] [address] [place], [id number] , [place] tel: [phone] [facility] Pain in right knee 2 Ramu Chen. [address] [place] [address] [place], [id number] , [place]. tel: [phone] Referring Provider: Nate Lynn, [facility] [address], [address], [place], [address]. tel:[phone] [facility], [address] [place] [address] [place], [id number] , [place] tel:[phone] [facility] Unilateral primary osteoarthritis of right kneePain in right knee 2 [place] Chen. [address] [place], [place], [id number] , [place]. tel: [phone] [facility], [address] [facility] [address] [place], [place], [id number] , [place] tel: [phone] [facility] [place] No Information 2 Will Nate. [address] [facility] [address] [place], [id number] , [place]. tel:[phone] OFFICE/OUTPA TIENT VISIT, NEW [facility], [address] [facility] [address] [place], [place], [id number] , [place] tel: [phone] [facility] [place] Right Knee Pain (chief complaint) Other chronic painObesityUnilat eral primary osteoarthritis of right kneeRadiculopathy , lumbar regionEncounter for screening for other disorder 2 Will Nate. [address] [facility] [address] [place], [place], [id number] , [place]. tel:[phone] Referring Provider: Nate Lynn, [facility] [address] [facility] [place], [place], [address]. tel:[phone] Family History Family Member Type Diagnosis Age At Onset No Information Payers Payer name Insurance type Covered republican ID Authoriza tion(s) Medicare [id number] [facility] MSC Plus Supplement [id number] Social History Type Description Quantity Date Captured [...] She was referred by Dr. La at [facility] for possible a genicular RF workup. Patient reports right knee pain began 2 months ago and that she has been evaluated at [facility] by Dr. Lynn. She has [...]
--- OUTSIDE RECORDS SUMMARY | 2022-11-24 06:30 | XMS_ITS | Continuity of Care Document ---
Author Organization [facility] enter Address [address] [place] [address] Phone Care Team Providers Care Director Safety Name Role Phone [facility] Unavailable Unava ilable Procedures Procedure [...] Date Provider Providers Copied on Encounter [facility], [address] [place] [address], [id number], [place] tel:[phone] [facility] No Information 3 [facility]. [address] [place] [address], [id number], [place]. tel:[phone] Referring Provider: April Guallpa, [address] [facility] [place], [address] . tel:[phone] [facility], [address] [place] [address], [id number], tel:[phone] [facility] No Information [facility] [place]. [address] [place] [address] 11 [facility] 110, [place], [place], [id number], [place]. tel:[phone] Referring Provider: April Guallpa, [address] [facility] [place], [address] . tel:[phone] Family History Family Member Type Diagnosis Age At Onset No Information Payers Payer name Insurance type Covered republican ID Emre martinez(s) Medicare MB [id number] [facility] MSC Plus Supplement [id number] Social History Type Description Quantity Date Captured [...]
--- OUTSIDE RECORDS SUMMARY | 2022-12-01 09:40 | XMS_ITS | Continuity of Care Document ---
Author Organization [facility] Address [address] [place] [address] Care Team Providers Care Railroad Car Letterer Name Role Phone Leonardo Jones CRNA Unavailable Unavailable Procedures Procedure Date ANESTH, NERVE BLOCK/INJ Advance Directives Directive Yes / No Effective Date File Name No Information Encounters Encounter Description Practice Location Reason(s) For Visit Diagnoses Date Provider Providers Copied on Encounter [facility], [address] [place], [place], [id number], [facility] No Information 3 Robert Patterson. [address] [place], [place], [id number] , . tel:[phone] Referring Provider: April Guallpa, [address] [place], [address] . tel:[phone] Family History Family Member Type Diagnosis Age At Onset No Information Payers Payer name Insurance type Covered alliance party ID Emre martinez(s) Medicare [id number] [facility] MSC Plus Supplement [id number] Social History Type Description Quantity Date Captured [...]
--- OUTSIDE RECORDS SUMMARY | 2022-12-01 09:40 | XMS_ITS | Continuity of Care Document ---
Author Organization [facility] Address [address] [place] [address] Care Team Providers Care Professor Of Religious Studies Name Role Phone Leonardo Jones CRNA Unavailable Unavailable Procedures Procedure Date ANESTH, NERVE BLOCK/INJ Advance Directives Directive Yes / No Effective Date File Name No Information Encounters Encounter Description Practice Location Reason(s) For Visit Diagnoses Date Provider Providers Copied on Encounter [facility], [address] [place], [place], [id number], [facility] No Information 3 Robert Patterson. [address] [place], [place], [id number] , . tel:[phone] Referring Provider: April Guallpa, [address] [place], [address] . tel:[phone] Family History Family Member Type Diagnosis Age At Onset No Information Payers Payer name Insurance type Covered libertarian ID Emre martinez(s) Medicare [id number] [facility] MSC Plus Supplement [id number] Social History Type Description Quantity Date Captured [...]
--- OUTSIDE RECORDS SUMMARY | 2024-05-31 10:35 | XMS_ITS | Continuity of Care Document ---
Author Organization [facility] Address [address] [address] [place] [address] Phone Care Team Providers Care Geospatial Program Management Officer Name Role Phone PatelAlexey clarke MD Unavailable Unavailable Advance Directives Directive Yes / No Effective Date File Name No Information Encounters Encounter Description Practice Location Reason(s) For Visit Diagnoses Date Provider Providers Copied on Encounter [facility], [address] [address], [place], [place], [id number], [place] tel:[phone] [facility] No Information Patelvince Blackburn. [address] [facility], [facility] [address], [place], [place], [id number], [place]. tel:[phone] Family History Family Member Type Diagnosis Age At Onset No Information Payers Payer name Insurance type Covered constitution party ID Authoriza tion(s) No Information Social History Type Description Quantity Date Captured [...]
--- OUTSIDE RECORDS SUMMARY | 2025-02-19 10:49 | XMS_ITS | Encounter Summary ---
Author Organization [facility] Address [address] [place] [address] Care Team Providers Care Toilet Products Molder Name Role Phone Harvey Ely PA-C Primary Care Provider Reason for Visit * Reason Comments Back Pain Leg Pain Encounter Details Date Type Department Care Team (Late st Contact Info) Description 02/19/2025 10:49 AM CDT - 02/19/2025 12:02 PM CDT Emergency [facility] Emergency Dept [address] [place] [address] [phone] Vishnu Ambriz MD [facility] [address] [place], [place] [id number] Lumbar radiculopathy Discharge Disposition: Home or Self Care Social History Tobacco Use Types Packs/Day Years Used Date Smoking Tobacco: Never Assessed Adolescent Education Answer Date Record ed Getting School Help Needed Not on file 07/08 Comments No Sex and Gender Information Value Date Recorded Sex Assigned at Not on file Legal Sex Female 10:40 AM BACK TACKER Gender Identity Not on file Sexual Orientation Not on file documented as of this encounter Last Filed Vital Signs Vital Sign Reading Time Taken Comments Blood Pressure 102/76 02/19/2025 10:42 AM CDT Pulse 72 02/19/2025 10:42 AM CDT Temperature 37.2 C (98.9 F) 02/19/2025 10:42 AM CDT Respiratory Rate 18 02/19/2025 12:02 PM CDT Oxygen Saturation 99% 02/19/2025 10:42 AM CDT Inhaled Oxygen Concentration - - Weight - - Height - - Body Mass Index - - documented in this encounter Discharge Instructions * Discharge Instructions* Vishnu Ambriz MD - 02/19/2025 11:42 AM CDT Discharge Instructions Back Pain You were seen today for back pain. Back pain can have many causes, but most will get better withoutsurgery or other specific treatment. Sometimes there is a herniated (???slipped?? ) disc. We do notusually do MRI scans to look for these right away, since most herniated discs will get better on their own with time. Today, we did not find any evidence that your back pain was caused by a serious condition. However, sometimes symptoms develop over time and cannot be found during an emergency visit, so it is very important that you follow up with your primary provider. Generally, every Emergency Department visit should have a follow-up clinic visit with either a primary or a specialty clinic/provider. Please follow-up as instructed by your emergency provider today. Return to the Emergency Department if: You develop a fever with your back pain. You have weakness or change in sensation in one or both legs. You lose control of your bowels or bladder, or cannot empty your bladder (cannot pee). Your pain gets much worse. Follow-up with your provider: Unless your pain has completely gone away, please make an appointment with your provider within oneweek. Most of the routine care for back pain is available in a clinic and not the Emergency Department. You may need further management of your back pain, such as more pain medication, imaging such as an X-ray or MRI, or physical therapy. What can I do to help myself? Remain Active -- People are often afraid that they will hurt their back further or delay recovery by remaining active, but this is one of the best things you can do for your back. In fact, staying inbed for a long time to rest is not recommended. Studies have shown that people with low back pain recover faster when they remain active. Movement helps to bring blood flow to the muscles and relievemuscle spasms as well as preventing loss of muscle strength. Heat -- Using a heating pad can help with low back pain during the first few weeks. Do not sleep with a heating pad, as you can be burned. Pain medications - You may take a pain medication such as Tylenol?? (acetaminophen), Advil??, Motrin?? (ibuprofen) or Aleve?? (naproxen). If you were given a prescription for medicine here today, be sure to read all of the information (including the package insert) that comes with your prescription. This will include important information about the medicine, its side effects, and any warnings that you need to know about. The pharmacist who fills the prescription can provide more information and answer questions you may have about the medicine. If you have questions or concerns that the pharmacist cannot address, please call or return to the Emergency Department. Remember that you can always come back to the Emergency Department if you are not able to see your regular provider in the amount of time listed above, if you get any new symptoms, or if there is anything that worries you. Discharge Instructions Chronic Pain Management You were seen today for an issue regarding chronic or recurrent pain. You may have a condition thatgives you pain every day, or a condition that causes pain that keeps coming back, or several conditions involving pain. We will evaluate you for your symptoms to ensure that there is no medical emergency. This evaluation usually takes the form of a good medical history (interview) and physical examination. Rarely, imaging (x-rays or CAT scans) and lab work (blood tests) may be necessary in addition to the history and examination. This approach is similar to our approach to other chronic/recurrent diseases where weevaluate for emergencies but leave much of the management of the problem to the regular provider/clinic. We will offer suggestions to manage your pain but we do not generally utilize opiate pain medications for recurrent or chronic pain. There is an ongoing public health crisis with respect to opiates and we are aware of the risks to our patients from opiate pain medications. Opiates are strong pain relievers but they carry significant risks including sedation, confusion, constipation, falls, as well as dependence, addiction, and overdose-related deaths. These medications represent a significant risk to your health and are therefore reserved for the management of select conditions associated with acute, severe pain. For many conditions, the risks of opiate treatment simply outweigh the benefits. Additionally, for patients with chronic/recurrent pain or who frequently use opiates, management of pain needs to be performed by a single physician/provider who can follow their care consistently.As a result, we generally do not provide refills of opiates or treat chronic pain with injected opiates in the Emergency Department. It is with your best interests in mind that we adhere to these wide ly accepted best practices. As with other chronic diseases like diabetes and asthma, management of chronic pain is best performed by regular visits to the same provider. In the case of chronic pain, this may be your primary physician/provider, your neurologist or other specialist, or with a chronic pain clinic/provider. If you have concerns about our policy, please discuss them with your primary care provider or pain specialist, who can contact us if necessary for further information or clarification. If you were given a prescription for medicine here today, be sure to read all of the information (including the package insert) that comes with your prescription. This will include important information about the medicine, its side effects, and any warnings that you need to know about. The pharmacist who fills the prescription can provide more information and answer questions you may have about the medicine. If you have questions or concerns that the pharmacist cannot address, please call or return to the Emergency Department. Remember that you can always come back to the Emergency Department if you develop any new symptoms or if there is anything that worries you. documented in this encounter Medications at Time of Discharge albuterol (PROAIR HFA/PROVENTIL HFA/VENTOLIN HFA) 108 (90 Base) MCG/ACT inhaler Inhale 1-2 puffs into the lungs every 6 hours as needed for shortness of breath 01/20/2022 atorvastatin (LIPITOR) 80 MG tablet Take 80 mg by mouth At Bedtime 08/31/2022 citalopram (CELEXA) 40 MG tablet Take 40 mg by mouth daily cyclobenzaprine (FLEXERIL) 10 MG tablet Take 10 mg by mouth 3 times daily ELIQUIS ANTICOAGULANT 5 MG tablet Take 1 tablet by mouth 2 times daily 04/26/2023 levETIRAcetam (KEPPRA) 1000 MG tablet Take 1,000 mg by mouth daily 03/07/2023 lisinopril-hydrochl orothiazide (ZESTORETIC) 20-12.5 MG tablet Take 1 tablet by mouth daily 03/22/2023 metaxalone (SKELAXIN) 800 MG tablet Take 800 mg by mouth 3 times daily 01/19/2023 rosuvastatin (CRESTOR) 10 MG tablet Take 10 mg by mouth At Bedtime documented as of this encounter ED Notes * Vishnu Ambriz MD - 02/19/2025 11:20 AM CDT Emergency Department Note History of Present Illness Chief Complaint Back Pain and Leg Pain HPI Amber Childers is a 69 year old female, anticoagulated on Eliquis, with a history of degeneration of lumbar/lumbosacral intervertebral disc, primary osteoarthritis, spondylosis, and spondylolisthesis of lumbar region who presents to the ED via EMS for back pain and leg pain. The patient reportsprogressively worsening sciatic nerve pain over the past couple of months. This pain starts in her low back and radiates down her left leg. Also notes some intermittent numbness at the top of her right thigh. She states her pain escalated 1 month ago after going on a long walk and pinching a nerve.Her pain then became more severe yesterday and is now affecting her ability to do daily tasks. She states that today, she had to lay down and do her exercises in between each daily activity. Patient is schedule for back surgery in [address] Cm. Patient has been using muscle relaxer, tylenol, and heating pads, but none of these interventions have helped. Dilaudid does help her pain, but she can't get a refill as her surgeon referred her to her pcp and her pcp gave an initial rx but no refill. Patient denies any bladder or bowel incontinence. Independent Historian None Review of External Notes I reviewed surgery paperwork brought in by patient. Reviewed office visit from 6 days ago as well as refill request from 2 days ago. Past Medical History Medical History and Problem List Adjustment disorder with depressed mood Allergic rhinitis Bone spur of foot CAD Degeneration of lumbar or lumbosacral intervertebral disc Depression GERD Hiatal hernia Generalized convulsive epilepsy Chronic pain or right knee Greater trochanteric bursitis of both hips Asthma Hypertension Hyperlipidemia Insomnia Metabolic syndrome Myopia of both eyes Nuclear senile cataract of right eye Atrial fibrillation with RVR Prediabetes Primary osteoarthritis of multiple sites Radiculopathy, lumbosacral region Refractory migraine Spinal stenosis, lumbosacral region Spondylolisthesis of lumbar region Spondylosis of lumbar region Toenail fungus Tremor Vitamin D deficiency Medications Lipitor Celexa Flexeril Eliquis Keppra Zestoretic Skelaxin Crestor Surgical History No past surgical history on file. Physical Exam Patient Vitals for the past 24 hrs: BP Temp Temp src Pulse Resp SpO2 02/19/25 1042 102/76 98.9 ??F (37.2 ??C) Temporal 72 18 99 % Physical Exam Head: The scalp, face, and head appear normal Eyes: Conjunctivae are normal ENT: The nose is normal Pinnae are normal Neck: Trachea midline CV: Normal rate, regular rhythm. Normal DP pulses. Resp: No respiratory distress Musc: Normal muscular tone Pain to palpation left-sided paralumbar musculature. Straight leg raise negative bilaterally. Skin: No rash or lesions noted Neuro: Speech is normal and fluent. Face is symmetric. Moving all extremities well. Normal sensation to light touch all 5 distal nerve distributions bilateral lower extremities. Equal strength DF/PF, EHL/FHL. Antalgic gait. 1+ patellar and achilles reflexes noted bilaterally. ED Course Medications Administered Medications HYDROmorphone (DILAUDID) tablet 4 mg (4 mg Oral $Given 02/19/25 1156) Procedures Procedures Discussion of Management None ED Course ED Course as of 02/19/25 1201 MonFebruary 19, 2025 1124 I obtained history and examined the patient as noted above. Additional Documentation None Medical Decision Making / Diagnosis [facility] Diagnoses: None MIPS None MDM Amber Childers is a 69 year old female who presents with ongoing back pain. She has had this pain for about 8 months and is scheduled for surgery in about 3 weeks. She does not have any red flagsthat would suggest need for advanced spine imaging. She reports that her surgeon nor her primary care PA will write her for pain medication other than 7 pills written about a week ago. I discussed with her that we have a chronic pain policy regarding the use of injections of pain meds as well as refills of pain meds. In accordance with her policy, I gave her a single oral dose of Dilaudid. Patient quite frustrated by this. I discussed with her that pain management will need to be discussed withher surgeon and/or PCP. She is in stable condition at time of discharge. I discussed red flags that would suggest need for ED return/moving up her surgery. I strongly encouraged her to discuss her pain management with her surgeon/pcp. Disposition The patient was discharged. Diagnosis ICD-10-CM 1. Lumbar radiculopathy M54.16 Scribe Disclosure: I, Nova Silver, am serving as a scribe at 11:28 AM on 02/19/2025 to document services personally performed by Vishnu Ambriz MD based on my observations and the provider's statements to me. Vishnu Ambriz MD 02/21/25 1714 * Annamarie Petit RN - 02/19/2025 10:43 AM CDT Pt presents via ems with low back pain going into L thigh/sciatic. Pt due to have procedure at [facility] in 3 wks for back. Pt was prescribed 6 days of dilaudid and ran out-reports they will not refill.Had flexeril and tylenol at 0530 this morning. Pt reports only being able to stand or move briefly,has mostly been bed ridden due to pain. Triage Assessment (Adult) Row Name 02/19/25 1040 Triage Assessment Airway WDL WDL Respiratory WDL Respiratory WDL WDL Cognitive/Neuro/Behavioral WDL Cognitive/Neuro/Behavioral WDL WDL documented in this encounter Plan of Treatment Not on file documented as of this encounter Visit Diagnoses Diagnosis Lumbar radiculopathy Thoracic or lumbosacral neuritis or radiculitis, unspecified documented in this encounter Administered Medications Inactive Administered Medications - up to 3 most recent administrations Medication Order MAR Action Action Date Dose Rate Site HYDROmorphone (DILAUDID) tablet 4 mg 4 mg, Oral, ONCE, On Mon02/19/25 at 1145, For 1 dose $Given 02/19/2025 11:59 AM CDT 4 mg documented in this encounter Active and Recently Administered Medications Times are shown in CDT. Scheduled Medication Order 02/17/2025 02/18/2025 02/19/2025 HYDROmorphone (DILAUDID) tablet 4 mg (COMPLETED) 4 mg, Oral, ONCE, On Mon02/19/25 at 1145, For 1 dose 1159 ($Given - Provi dakota: Bela Mcmillan RN) documented in this encounter Care Teams Toilet Products Molder Relationship Specialty Start Date End Date Harvey Ely PA-C [facility] [id number] [place] [id number] PCP - General Family Medicine 02/19/25 documented as of this encounter
--- OUTSIDE RECORDS SUMMARY | 2025-03-17 17:28 | XMS_ITS | Encounter Summary ---
Author Organization [facility] Address [address] [address] Phone Care Team Providers Care Low Pressure Boiler Operator Name Role Phone Gabby Aaron MD Primary Care Provider [phone] Hugh Argueta HOSPITAL NURSE, QUALIFIED CRAFT WORKER ELECTRICIAN Unavailable + [phone] Sergio Galdamez HOSPITAL NURSE, QUALIFIED CRAFT WORKER ELECTRICIAN Unavailable + Heidy Mulligan Unavailable Unavailable Encounter Details Date Type Department Care Team (Late st Contact Info) Description 07/29/[address] 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 Gender Identity Not on file Sexual Orientation Not on file Occupation Industry Job Start Date Job End Date unemployed Not on file Not on file Not on file documented as of this encounter Plan of Treatment Not on file documented as of this encounter Visit Diagnoses Diagnosis Obesity, Class II, BMI 35.0-39.9, with comorbidity (see actual BMI) Obesity, unspecified documented in this encounter Care Teams Low Pressure Boiler Operator Relationship Specialty Start Date End Date Gabby Aaron MD [address] [place] [phone] PCP - General Family Medicine 06/29/12 11/20/17 Hugh Argueta APRN, QUALIFIED CRAFT WORKER ELECTRICIAN [address] [place] [address] PCP - PC Team Family Medicine 07/31/15 02/06/18 Sergio Galdamez APRN, QUALIFIED CRAFT WORKER ELECTRICIAN [address] [place] [phone] PCP - PC Team Family Medicine 02/07/18 03/21/19 Heidy Mulligan Community Health Worker 07/24/19 12/07/20 documented as of this encounter
--- OUTSIDE RECORDS SUMMARY | 2025-03-17 17:28 | XMS_ITS | Clinical Summary ---
Author Organization [facility] Address [address] [place] [address] Care Team Providers Care Export Sales Manager Name Role Phone Harvey Ely PA-C Primary Care Provider [phone] Source Comments You are receiving this document as you are listed as the primary care provider,follow-up provider, or the patient has been referred to you for consultation.This is in compliance with the Medicare andOhio[facility] Doctors Hospitalca[facility] EHR Incentive Program,which states Providers who transition their patient to another setting of careor provider of care or refers their patient to another provider of care shouldprovide summary care record for each transition of care or referral. Plunify Allergies Active Allergy Reactions Criticality Noted Date Comments Clindamycin Other, see comments 04/14/2009 GI upset Milk Protein Other, see comments 12/04/2020 Penicillins Hives High 02/16/2010 Hives Medications ALBUterol sulfate HFA 108 (90 Base) MCG/ACT inhaler SMARTSI-2 Puff(s) By Mouth Every 6 Hours PRN 2 Active ELIQUIS 5 MG tablet Take 1 Tablet (5 mg) by mouth two times a day. 2 Active atorvastatin (LIPITOR) 80 MG tablet Take 80 mg by mouth daily at bedtime. 2 Active Calcium Citrate 250 MG Take 2 Tablets by mouth two times a day. 2 Active citalopram (CELEXA) 40 MG tablet Take 1 Tablet (40 mg) by mouth daily. 2 Active vitamin B-12 (AKA: CYANOCOBALAMIN) 1000 MCG tablet Take 1 Tablet (1,000 mcg) by mouth daily. 2 Active ADVAIR DISKUS 250-50 MCG/ACT diskus inhaler two times a day. 2 Active levETIRAcetam (KEPPRA) 750 MG tablet Take 2 Tablets (1,500 mg) by mouth two times a day. 2 Active lisinopril-hydr oCHLOROthiazide (PRINZIDE) 20-12.5 MG tablet Take 1 Tablet by mouth daily. 2 Active metFORMIN XR (GLUCOPHAGE XR) 500 MG 24 hour release tablet Take 1,000 mg by mouth daily. 2 Active Multiple Vitamins-Minera ls (CERTAVITE/ANTI OXIDANTS) TABS Take 1 Tablet by mouth daily. 2 Active Spacer/Aero-Hol ding Chambers (EQ SPACE CHAMBER ANTI-STATIC) SUZETTE FOR HOME USE 2 Active rosuvastatin (CRESTOR) 10 MG tablet Take 1 Tablet (10 mg) by mouth daily at bedtime. 2 Active Cholecalciferol (VITAMIN D3) 125 MCG (5000 UT) TABS Take 1 Tablet by mouth daily. 2 Active EPINEPHrine (EPIPEN) 0.3 MG/0.3ML injection SMARTSI.3 Milligram(s) IM PRN 2 Active nitroglycerin (NITROSTAT) 0.4 MG sublingual tablet SMARTSI Tablet(s) Sublingual PRN 2 Active diclofenac (VOLTAREN) 1 % gel Apply 2 g to skin 4 times a day. 4 times per day Active Active Problems Problem Noted Date Diagnosed Date Primary osteoarthritis of both knees 11/06/2023 Primary osteoarthritis of both hips 11/06/2023 Social History Tobacco Use Types Packs/Day Years Used Date Smoking Tobacco: Never Tobacco Cessation:Counseling Given: Not Answered Comments Unknown Sex and Gender Information Value Date Recorded Sex Assigned at Not on file Legal Sex Female 2:09 PM CDT Gender Identity Not on file Sexual Orientation Not on file Last Filed Vital Signs Vital Sign Reading Time Taken Comments Blood Pressure - - Pulse - - Temperature 36.6 C (97.8 F) 10/18/2023 12:25 PM GROOVER OPERATOR Respiratory Rate - - Oxygen Saturation - - Inhaled Oxygen Concentration - - Weight 123.9 kg (273 lb 0.6 oz) 11/06/2023 1:28 PM GROOVER OPERATOR Height 166.4 cm (5' 5.5) 11/06/2023 1:28 PM GROOVER OPERATOR Body Mass Index 44.75 11/06/2023 1:28 PM GROOVER OPERATOR Plan of Treatment Health Maintenance Due Date Last Done Comments Colon Cancer Screening Plan Due 1955 Hep C Screening (Preventive Services) 1955 Cholesterol 2002 RSV Vaccine (1 - Risk 60-74 years 1-dose series) 2017 Medicare Annual Wellness Visit 10/16/2024 COVID-19 Vaccine ( season) 2025 07/22/2024, 08/08/2023, 07/08/2022, Additional history exists Mammogram 09/26/2025 09/26/2024, 02/2023, 05/26/2022, Additional history exists DTaP/Tdap/Td Vaccine (4 - Tdap) 02/08/2028 02/07/2018, 04/29/2008, 10/22/2007, Additional history exists Zoster/Shingles Vaccine Completed 10/15/2020, 07/31 Pneumococcal Vaccine 50+ Yrs Completed 07/08/2022, 10/26/1999 Dexa Completed 01/23/2023, 01/23/2023 Influenza Vaccine Completed 07/22/2024, , 07/07/2022, Additional history exists HepA Vaccine Aged Out No longer eligi ble based on patient's age to complete this topic HepB Vaccine Aged Out No longer eligi ble based on patient's age to complete this topic Hib Vaccine Aged Out No longer eligi ble based on patient's age to complete this topic IPV (Polio) Vaccine Aged Out No longe r eligible based on patient's age to complete this topic MCV4 Vaccine Aged Out No longer eligi ble based on patient's age to complete this topic Meningococcal B Vaccine Aged Out No l onger eligible based on patient's age to complete this topic Insurance [id number] [place] [address] [facility] Care Teams Export Sales Manager Relationship Specialty Start Date End Date Harvey Ely PARafaC [address] [place], [place] [phone] PCP - General Physician Curator Of Collections 10/23/23
--- OUTSIDE RECORDS SUMMARY | 2025-03-17 17:28 | XMS_ITS | Clinical Summary ---
Author Organization [facility] Address [address] [address] Phone Care Team Providers Care Pre Press Manager Name Role Phone Unavailable Primary Care Provider [...] trial a second or additional statin. Medications * This document contains information received from the source organization and may not represent a complete record from that organization. aspirin EC 81 MG tablet Take 1 Tab by mouth one time a day. Do not split or crush. 1 Tab 0 Active levETIRAcetam (Keppra) 750 MG tabletIndication s:Generalized convulsive epilepsy without intractable epilepsy (HCC) TAKE 2 TABLETS BY MOUTH TWICE DAILY. DO NOT CRUSH 360 Tab 3 0 Active Multiple Vitamins-Mineral s (Multivitamin Adult) Tablet Take 1 Tab by mouth one time a day. 100 Tab 3 0 Active Eliquis 5 MG Tablet tablet TAKE 1 TABLET BY MOUTH TWICE DAILY 180 Tab 1 0 Active citalopram (CeleXA) 40 MG tablet Take 1 Tab by mouth one time a day. 90 Tab 1 0 Active cholecalciferol, vitamin D3, 125 MCG (5000 UT) Capsule Take 1 Cap by mouth one time a day. 1 unit of Vitamin D equals 0.025 mcg of Vitamin D 30 Cap 0 Active zolpidem (Ambien) 5 MG tablet TAKE 1 TABLET BY MOUTH AT BEDTIME NEEDED FOR SLEEP. IF TAKING, DECREASE LORAZEPAM TO 1MG AT BEDTIME 90 Tab 0 Active diclofenac EC (Voltaren) 75 MG tablet TAKE 1 TABLET BY MOUTH TWICE DAILY. DO NOT CRUSH TABLETS.TK WITH FOOD OR MILK 180 Tab 1 0 Active nitroglycerin (Nitrostat) 0.[address] 1 Tab under the tongue as needed for Chest pain. Do not crush; maximum of 3 doses in 15 minutes. 5 Tab 1 0 Active EPINEPHrine, auto-injector, (EPIPEN 2-damion) 0.3 MG/0.3ML Solution Auto-injector injection Inject 0.3 mL into the muscle one time as needed for Anaphylaxis for up to 1 dose. 2 Each 0 Active albuterol HFA (Proair HFA, Ventolin HFA) 108 (90 Base) MCG/ACT inhalation aerosol Inhale 2 Puffs into the lungs every four hours as needed for Wheezing, Shortness of Breath or Cough. Shake before using. 8 g 0 Active LORazepam (Ativan) 1 MG tablet TAKE 1 AND 1/2 TABLETS BY MOUTH NEEDED AT BEDTIME 60 Tab 0 Active atorvaSTATin (Lipitor) 80 MG tablet TAKE 1 TABLET BY MOUTH EVERY DAY 30 Tab 0 Active Active Problems Problem Noted Date Diagnosed Date Paroxysmal atrial fibrillation 05/01/2018 Overview (05/01/2018): 10/31/17 Note: CHADS-VASc score is approximately a [...] management along with her A fib history. 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 Opioid Agreement Date: 05/28/2010 Last UDT (Urine Drug Test) on date: none Pain Dx: chronic pain syndrome Last Pain Visit: 06/29/2010 back pain Preferred Pharmacy: [facility] [place] Comments: none Other convulsions 05/17/2010 11/21/2017 Overview (02/04/2012): IMO Update 07/26 MRSA 03/31/2010 10/14/2011 Overview (09/03/2013): Resolved by Infection Prevention on 10/17/2011. Date [...] required to resolve. Screening exclusions include dialysis, long term acute care registered nurse care residence, antibiotics within the past 7 days, chronic wounds or invasive devices, & recurrent MRSA infections. Please contact Infection Prevention for your facility if questions. Coronary Atherosclerosis of [place] Coronary Artery, stents x 4, [place] 2006, 2008, hypertension 02/16/2010 02/03/2015 Overview (02/04/2012): IMO Update 07/26 Other and unspecified hyperlipidemia 02/16/2010 07/31/2015 Overview (02/04/2012): IMO Update 07/26 Asthma 02/16/2010 11/09/2012 Gen noncv ep w/o intr ep 02/16/2010 Overview (02/04/2012): IMO Update 07/26 Immunizations Immunization Administration Dates Next Due Hepatitis B, Adult 11/11/2008,06/05/2008, 008 Influenza 07/09/2009,09/27/2006,08/03/2005 Influenza (3+ Yrs) Trivalent PF-Single Dose Syringe/Vial (Flu Clinic) 07/31/2012 Influenza (6+ Months) Quad NPF Vial 07/03/2015 Influenza Quad Preservative Free 020,07/23/2019,07/11/2018,2016,08/03/2016 Influenza Trivalent With Preservative 08/01/2013 ,08/25/2011,09/27/2010 Influenza Vaccine (6 months - 64 Years) [...] DEXA, BONE DENSITY STUDY, 1 OR 11/03/2004 Formerly [facility] EXPLOR MAXILL SINUS,INTRANASAL 10/16/2004 - 11/15/2004 Bilateral [...] lens implant; Surgeon: Miguel Toussaint MD; Location: [facility] MAIN ORS Medical devices from this surgery are in the Medical Devices section. Medical History Medical History Date Comments Reactive airway disease 02/16/2010 Coronary atherosclerosis of [place] coronary artery 02/16/2010 S/p stent placement Other and unspecified hyperlipidemia 02/16/2010 Contact with and suspected e xposure to potentially hazardous chemicals 04/13/2009 Exposure to polychl oroprene solvent, [place] bonding adhesive. Obesity, unspecified 04/14/2009 Acute myocardial [...] age 83 Cardiovascular Disease Mother S/p coron viv artery bypass surgery Hypertension Mother Musculo-skeletal Disease Mother Arthrit is Cardiovascular Disease Other 1 Strong fa jimmy history for cardiac disease Diabetes Other 2 Aunt, uncle Cancer Other 3 Aunt - liver, co alan cancer in her 50s Cancer Other 4 Grandfather, amrit kerell Neuro Disease Other 5 Aunt of a [...] 07/23/2019 Lack of Transportation (Non-Medical) No 07/23/2019 Comments No Sex and Gender Information Value Date Recorded Sex Assigned at Not on file Legal Sex Female 9:28 PM PROGRAMMER DEVELOPER Gender Identity Not on file Sexual Orientation Not on file Occupation Industry Job Start Date Job End Date unemployed Not on file Not on file Not on file Obstetrics History Para Term AB IAB SAB Ectopic Molar Multiple Living Live Births 4 3 0 1 1 3 4 Date Outcome GA Total Labor Labor//3rd Weight Sex Type Anes PTL Darline A1 A5 Name Clin 04/29 Para M LV/ VAG Living 09/03 SAB 09/06 Para F LV/ VAG Living 06/03 Para M LV/ VAG Living Last Filed Vital Signs Vital Sign Reading Time Taken Comments Blood Pressure 142/90 07/31/2020 1:11 PM CDT Pulse 69 07/31/2020 12:41 PM CDT Temperature 36.7 C (98 F) 11/26/2019 10:16 AM PROGRAMMER DEVELOPER Respiratory Rate 18 12/10/2019 10:3 4 AM PROGRAMMER DEVELOPER Oxygen Saturation 97% 07/31/2020 12: 35 PM CDT Inhaled Oxygen Concentration - - Weight 127.5 kg (281 lb 1.4 oz) 020 11:08 AM PROGRAMMER DEVELOPER Height 165.1 cm (5' 5) 11/26/2019 10:1 6 AM PROGRAMMER DEVELOPER Body Mass Index 46.06 11/06/2019 11:08 AM PROGRAMMER DEVELOPER Plan of Treatment Health Maintenance Due Date Last Done Comments CT Colonography 1957 Cologuard 1957 Colonoscopy 1957 Colorectal Cancer Screening 1957 FIT/FOBT 1957 Sigmoidoscopy 1957 Pneumococcal Vaccine: 50+ yrs (Standing Order) (2 of 2 - PCV) 2007 10/26/1999 MAMMO,SCREEN 08/27/2020 08/28/2019, 02/13, 08/09/2016, Additional history exists Shingrix (Zoster recombinant) vaccine (Standing Order) (2 of 2) 09/25/2020 07/31/2020 DXA,FEMALES AGE 65 OR GREATER 2022 COVID-19 Vaccine (2023- season) 2024 VASCULAR LIPID PROFILE Q5 YEARS (Standing Order) 07/22/2024 07/22/2019, 08/09/2017, 08/02/2016, Additional history exists TETANUS (Standing Order) 02/08/2028 018, 04/29/2008, 05/26/1992 RSV Vaccination (60+ yrs) (Abrysvo/Arexvy) (1 - 1-dose 75+ series) 2032 Hepatitis B Vaccine (Standing Order) Completed 11/11/2008, 06/05/2008, 04/29/2008 PERTUSSIS (Standing Order) Completed 02/07/2018 HPV Vaccine (Standing Order) Aged Out No longer eligible based on patient's age to complete this topic Medical Devices Implanted Type Area Health Policy Manager Device Identifier Shelf Expiration Date Model / Serial / Lot Sling Pelvic T-Sling - [id number] Implanted:Qty: 1 on [facility]14/[facility] N/A: Bladder COLOPLAST [place]ILLA. [id number] / N/A / 0827 Lens Iol [id number] 16.0d Acrysof Iq [id number] - [id number] Implanted:Qty: 1 on 11/22/2018 by Miguel Toussaint MD at [facility] IOR Left: Eye ENZO 05/15/2023 [id number].160 / [id number] / * Procedures Procedure Name Priority Date/Time Associated Diagnosis Comments MAMM SABRINA SCREEN DIGITAL BILAT Routine 08/28/2019 1:52 PM PROGRAMMER DEVELOPER Visit for screening mammogram LIPID PROFILE Routine 07/22/2019 8:17 AM CDT Coronary artery disease involving [place] coronary artery without angina pectoris, unspecified whether [place] or transplanted heart from Last 3 Months or Most Recently Relevant to Health Maintenance Results * MAMM SABRINA SCREEN DIGITAL BILAT (08/28/2019 1:52 PM PROGRAMMER DEVELOPER) Anatomical Region Laterality Modality Breast Bilateral Mammography 08/28/2019 1:52 PM PROGRAMMER DEVELOPER Narrative 08/28/2019 8:44 PM PROGRAMMER DEVELOPER This document is currently in Final Status [...] MD 08/28/2019 8:44 PM Procedure Note Megan Torers MD - 08/28/2019 This document is currently [...] 08/28/2019 8:44 PM Caren Ovalle MD MAMMOGRAPHY ORDERABLES F inal Result * (ABNORMAL) LIPID PANEL (07/22/2019 8:17 AM CDT) Cholesterol 152 114 - 200 mg/dL 07/22/2019 11:54 AM CDT [facility] HDL Cholesterol 39(L) 40 - 60 mg/dL 07/22/2019 11:54 AM T [facility] Triglycerides 172 10 - 200 mg/dL 07/22/2019 11:54 AM CDT [facility] LDL Cholesterol, Calculated 79 mg/dL 07/22/2019 11:54 AM CDT [facility] Blood specimen (specimen) BLOOD SPECIMEN / Unknown Venipuncture / Unknown 07/22/2019 8:17 AM CDT 07/22/2019 8:17 AM CDT Narrative [facility] - 07/22/2019 11:54 AM CDT Triglyceride If patient is non-fasting, the result of the triglyceride is invalid. Triglyceride Reference Ranges Normal: 10-200 mg/dL Borderline High: 150-200 mg/dL High: 201-499 mg/dL Very High: =500 mg/dL Total Cholesterol Reference Ranges Desirable: <200 mg/dL Borderline High: 200-239 mg/dL High: >239 mg/dL Calculated LDL Cholesterol Reference Ranges Optimal: <100 mg/dL Near Optimal: 100-129 mg/dL Borderline High: 130-159 mg/dL High: 160-189 mg/dL Very High: >189 mg/dL Caren Ovalle MD EC CHEMISTRY ORDERABLES ABN Final Result Performing Organization Address City/State/[facility] Co de Phone Number [facility] [address] [place] [address] from Last 3 Months or Most Recently Relevant to Health Maintenance Insurance MEDICARE PART A & B [facility] AC[facility] MEDICARE PART A & B MEDICARE PART A & B * Guarantor: DARYA ESPINOSA Account Type Relation to Patient Date of Phone Billing Address [employer] [address] [place] [address] Advance Directives For more information, please contact: [phone] * Full Code (Latest Code Status on File) Date Activated Date Inactivated Comments 05/03/2013 12:23 AM 05/03/2013 7:19 PM * Full Code Date Activated Date Inactivated Comments 01/27/2013 3:22 AM 01/29/2013 4:19 PM
--- OUTSIDE RECORDS SUMMARY | 2025-03-17 17:29 | XMS_ITS | Encounter Summary ---
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
--- OUTSIDE RECORDS SUMMARY | 2025-03-17 17:29 | XMS_ITS | Clinical Summary ---
Author Organization [employer] [facility] & [facility] Address [address] [place] [id number] Care Team Providers Care Six Color Press Operator Name Role Phone Harvey Ely Primary Care Provider [phone] Jose Medina Unavailable [phone] Aleksandar Lopez MD Unavailable [phone] Elza Rubi RN Unavailable [phone] Unavailable [phone] Johanny Baires Unavailable [phone] Allergies Active Allergy Reactions Criticality Noted Date Comments Chlorhexidine Gluconate Rash High 03/13/2025 Jabier wipes Clindamycin Other - Describe In Comment Field 04/14/2009 GI upset Hydrocodone Nausea And Vomiting Medium 06/29/2012 Levofloxacin [...] Susie Oh RN, Bariatric Nurse , [facility] Weight Management 11/01/2022. Penicillins Hives High 02/16/2010 Hives Simvastatin Other - Describe In Comment Field High 04/14/2009 Myalgias Statin Intolerance Documentation 2. Shared decision making discussion with patient regarding statins and patient choses to not trial a second or additional statin. 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 Takes at 9 am and 6 pm 020 Active nitroglycerin (NITROSTAT) 0.4 mg sublingual tabletIndications :Coronary artery disease involving pauma coronary artery without angina pectoris, unspecified whether pauma or transplanted heart Place 1 Tablet (0.4 mg) under the tongue every 5 minutes if needed for Chest Pain. 25 Tablet 024 Active cyanocobalamin (VITAMIN B12) 1,000 mcg sublingual tabletIndications :S/P gastric bypass Take 1 tablet by mouth once daily 90 Tablet 3 024 Active ciclopirox (CICLODAN) 8 % topical solutionIndicatio ns:Toenail fungus Apply topically to affected area(s) at bedtime. 6.6 mL 024 Active Additional Information Patient not taking.Reason: Patient not taking, Informant: Patient's Recall, Reported on 03/17/2025 EPINEPHrine (EPIPEN) 0.3 mg/0.3 mL auto-injectorIndi cations:Dairy allergy Inject 0.3 mg intramuscular every 5 minutes if needed for Allergic Reaction. 2 Each 3 024 Active Multivitamin Cmb No.21-Iron-FA (Certavite-Antiox idant) 18-400 mg-mcg tabIndications:[facility] health maintenance,Histo ry of gastric bypass Take 1 Tablet by mouth once daily. 90 Tablet 2 024 Active cyclobenzaprine (FLEXERIL) 10 mg tabletIndications :Degeneration of intervertebral disc of lumbosacral region with discogenic back pain,Spondylosis of lumbar region without myelopathy or radiculopathy Take 0.5-1 Tablets (5-10 mg) by mouth 3 times daily if needed for Muscle Spasm. 30 Tablet 024 Active cholecalciferol, Vitamin D3, 5,000 unit tab tabletIndications :Depression, recurrent Take 1 tablet by mouth once daily 90 Tablet 3 024 Active semaglutide, weight loss, (Wegovy) 2.4 mg/0.75 mL subcutaneous penIndications:Mo rbid obesity with BMI of 50.0-59.9, adult (HC) Inject 2.4 mg subcutaneous once weekly. 3 mL 3 025 Active rosuvastatin 20 mg tabletIndications :Hyperlipidemia with target LDL less than 70 Take 1 Tablet (20 mg) by mouth at bedtime. 90 Tablet 025 Active HYDROmorphone (Dilaudid) 4 mg tabletIndications :Spondylolisthesi s of lumbar region,Spinal stenosis, lumbosacral region,Radiculopa thy, lumbosacral region Take 0.5 Tablets (2 mg) by mouth 2 times daily if needed for Pain. 20 Tablet 025 Active Additional Information Patient not taking.Reason: Duplicate medication, Informant: Patient's Recall, Reported on 03/17/2025 citalopram 40 mg tabletIndications :Adjustment disorder with depressed mood Take 1 tablet by mouth once daily 90 Tablet 1 025 Active apixaban (Eliquis) 5 mg tabletIndications :Coronary artery disease involving pauma coronary artery without angina pectoris, unspecified whether pauma or transplanted heart Take 1 tablet by mouth twice daily 180 Tablet 2 025 Active metoprolol succinate 25 mg Sustained-Release tablet Take 25 mg by mouth at bedtime. Active acetaminophen 500 mg tablet Take 1,000 mg by mouth every 6 hours if needed for Pain. Max acetaminophen dose: 4000mg in 24 hrs. Active HYDROmorphone 4 mg tabletIndications :Postoperative pain Take 1 Tablet (4 mg) by mouth every 6 hours if needed for Pain (moderate-sever e). 10 Tablet 025 Active Walker - 4 wheelsIndications :Bilateral primary osteoarthritis of knee For home use. Length of need: 99 months. 4 wheel walker for severe bilateral knee osteoarthritis. 1 Each 022 2024 Discontinued(O ther - add note to specify (E-cancel not sent)) lacosamide (VIMPAT) 50 mg tab tablet Take 150 mg by mouth two times daily. 023 2024 Discontinued(O ther - add note to specify (E-cancel not sent)) durable medical equipment (DME)Indications: Class 3 severe obesity with serious comorbidity and body mass index (BMI) of 40.0 to 44.9 in adult, unspecified obesity type (HC),Chronic pain of right knee Bath bench w/back 400# Narr Leg Base 17 1 Each 023 2024 Discontinued(O ther - add note to specify (E-cancel not sent)) durable medical equipment (DME)Indications: Class 3 severe obesity with serious comorbidity and body mass index (BMI) of 40.0 to 44.9 in adult, unspecified obesity type (HC),Chronic pain of right knee Walker Seat 1 Each 023 2024 Discontinued(O ther - add note to specify (E-cancel not sent)) Pain Reliever, acetaminophen, 500 mg tabletIndications :Mid back pain on right side TAKE 2 TABLETS BY MOUTH EVERY 6 HOURS NEEDED FOR PAIN . DO NOT EXCEED 4000 MG OF ACETAMINOPHEN PER 24 HOURS 240 Tablet 024 2024 Discontinued(O ther - add note to specify (E-cancel not sent)) apixaban (Eliquis) 5 mg tabletIndications :Coronary artery disease involving pauma coronary artery without angina pectoris, unspecified whether pauma or transplanted heart Take 1 tablet by mouth twice daily 180 Tablet 2 024 2024 Discontinued lisinopril-hydroc hlorothiazide 20-12.5 mg tablet (PRINZIDE)Indicat ions:HTN (hypertension) Take 1 Tablet by mouth once daily. 90 Tablet 3 025 2024 Discontinued(* IP Discontinued) citalopram (CELEXA) 40 mg tabletIndications :Adjustment disorder with depressed mood Take 1 Tablet (40 mg) by mouth once daily. 90 Tablet 025 2024 Discontinued metoprolol succinate (TOPROL XL) 25 mg Sustained-Release tabletIndications :Coronary artery disease involving pauma coronary artery without angina pectoris, unspecified whether pauma or transplanted heart Take 1 Tablet (25 mg) by mouth once daily. 90 Tablet 1 025 2024 Discontinued(O ther - add note to specify (E-cancel not sent)) HYDROmorphone (Dilaudid) 4 mg tabletIndications :Spondylolisthesi s of lumbar region,Spinal stenosis, lumbosacral region,Radiculopa thy, lumbosacral region Take 0.5-1 Tablets (2-4 mg) by mouth once daily if needed for Pain. 10 Tablet 025 2024 Discontinued(R eorder (E-cancel not sent)) Active Problems Problem Noted Date Diagnosed Date Morbid obesity with BMI of 40.0-44.9, adult 02/14 Chronic atrial fibrillation 03/13/2025 Radiculopathy, lumbosacral region 02/13/2025 Spinal stenosis, lumbosacral region 02/13/2025 Spondylolisthesis of lumbar region 02/13/2025 Nonintractable generalized i diopathic epilepsy without status epilepticus 11/05/2024 Tremor 11/05/2024 Toenail fungus 03/28/2024 Obesity 08/10/2023 History of gastric bypass 03/02/2023 Vitamin D deficiency 02/15/2023 Mid back pain on right side 02/15/2023 S/P gastric bypass with hiatal hernia repair by Dr. Lopez 10/28/2022 Hiatal hernia 10/28/2022 Depression, recurrent 09/15/2022 Chronic pain of right knee 08/31/2022 HTN (hypertension) 03/10/2022 History of asthma 01/20/2022 Prediabetes 08/27/2021 Pseudophakia of left eye 04/02/2021 Nuclear senile cataract of right eye 04/02/2021 Myopia of both eyes 04/02/2021 Spondylosis 02/16/2021 Hip pain, chronic, right 02/16/2021 Bone spur of foot 02/16/2021 Insomnia 06/23/2017 Hyperlipidemia with target LDL less than 70 07/16 Overview (09/30/2020): IMO Update Spondylosis of lumbar region without myelopathy or radiculopathy 07/27/2015 Coronary artery disease invo lving pauma coronary artery without angina pectoris 02/03/2015 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 11/22/2013 Atrial fibrillation with RVR 05/03/2013 Refractory migraine without aura 02/15/2013 Degeneration of lumbar or lumbosacral interverte bral disc 02/10/2012 Metabolic syndrome 09/15/2011 Overview (09/30/2020): IMO Update 07/26 Adjustment disorder with depressed mood 02/17/20 10 Gastroesophageal reflux disease Dysphagia Resolved Problems Problem Noted Date Diagnosed Date Resolved Date Morbid obesity with BMI of 50.0-59.9, adult 10/24/2022 11/05/2024 Morbid obesity with BMI of 45.0-49.9, adult 02/16/2021 10/24/2022 Morbid obesity with BMI of 40.0-44.9, adult 08/25/2011 10/24/2022 Encounters Date Type Department Care Team Description 03/17/[address] [facility] [address] [place] [address] Amisha Trivedi, RN Primary RN Care Management; Hospital F/U (Spinal stenosis, lumbosacral region, DOD 03/16/2025, LACE+25) 03/16/[address] [address] Ramone Cain PA 03/13/2025 7:34 AM CDT Anesthesia Event [address] [address] Antonio Peña MD Laberge, Thomas Patrick, MD 03/13/2025 7:10 AM CDT - 03/13/2025 11:23 AM CDT Surgery [address] [address] Shawn Cm MD ALIF-ANTERIOR LUMBAR INTERBODY FUSION L5 SL, PSF-POSTERIOR SPINE FUSION L5-S1, INSTRUMENTATION AND BONE GRAFT 03/13/2025 5:06 AM CDT - 03/16/2025 11:55 AM CDT Hospital Encounter [address] [address] Shawn Cm MD [facility], Hospitalist Svc Postoperative pain (Primary Dx) Discharge Disposition: Home Self Care 03/12/2025 Travel 02/25/2025 Refill [facility] [address] [place] [address] Madeleine Loyd PA Refill Request (Eliquis) 02/25/[address] [address] Harvey Ely PA Refill Request (Citalopram) 02/14/[address] [address] Harvey Ely PA Refill Request (Hydromorphone ) 02/13/2025 3:00 PM CDT Office Visit [address] [address] Harvey Ely PA Pre-Op Exam; Pain (Severe pain surgeon will not give her pain meds.) 02/13/2025 Travel 01/10/[address] [address] Harvey Ely PA Prior Authorization (semaglutide, weight loss, (Wegovy) 2.4 mg/0.75 mL subcutaneous pen APPROVED 01/13/25 - 01/13/26) 01/09/[address] [address] Harvey Eyl PA Refill Request (Rosuvastatin) 01/09/[address] [address] Harvey Ely PA Medication Management (wegovy) 12/31/2024 2:00 PM CDT Office Visit [facility] [address] [address] [place] [address] Ramon Beth OD Eye Exam (CEE) 12/30/2024 Travel from Last 3 Months Immunizations Immunization Administration Dates Next Due COVID-19 VACCINE SPIKEVAX (M ODERNA 50MCG/0.5ML) 12YO+ PFS 07/22/2024 COVID-19 vaccine ([employer]-Bio NTech 30mcg/0.3mL) 12YO+ MADISON-SUCROSE PF, MDV 04/29/2022,12/09/2021 COVID-19 vaccine ([employer] NTech 30mcg/0.3mL) PF, MDV 02/16/2021,01/26/2021 Hepatitis B (Adult) 11/11/2008,06/05/2008,2007 Hepatitis B, Unspecified 11/11/2008,06/05/2008,0 04/29/2008 Influenza Virus, Unspecified 07/31/2020, 07/23/2019,07/11/2018,2016,08/03/2016,07/03/2015,08/01/2013,1 ,08/25/2011,09/27/2010, 009,09/27/2006,08/03/2005 Influenza, High-dose Inactivated 07/16/2013 Influenza, High-dose Quadriv alent Inactivated 08/08/2023 Influenza, IIV3 (Age >=3 years) 08/01/20 13,08/25/2011,09/27/2010,2005,08/03/2005 Influenza, IIV4 07/15/2021, 0,07/23/2019,2017,07/13/2017,08/03/2016,07/21/2014 Influenza, IIV4 (=>6mos) MDV 07/03/2015 Influenza, Inactivated AIIV4 (Age 65+ Years) Preserv Free 07/07/2022 Influenza, Inactivated IIV3 (Age 65+ Years) Preserv Free 07/22/2024 MMR 06/05/2008 Pneumococcal Conj 20-valent (Prevnar 20) [...] Packs/Day Years Used Date Smoking Tobacco: Never Passive Smoke Exposure: Never Smokeless Tobacco: Never Tobacco Cessation:Counseling Given: No Alcohol Use Standard Drinks/Week Comments Not Currently 0 (1 standard drink = 0.6 oz pur e alcohol) PHQ-2 Answer Date Recorded PHQ-2 TOTAL SCORE 1 11/05/2024 Social Connections Answer Date Recorded Do you often feel lonely or isolated from those around you? 0 02/13/2025 Financial Resource Strain Answer Date R ecorded Difficulty of Paying Living Expenses 3 02/13/2025 Difficulty of Paying Living Expenses Not on file 02/13/2025 Food Insecurity Answer Date Recorded Do you worry your food will run out before you are able to buy more? 1 02/13/2025 Transportation Needs Answer Date Record ed Does lack of transportation keep you from medica l appointments? 1 02/13/2025 Does lack of transportation keep you from work, meetings or getting things that you need? 1 02/13/2025 Housing Stability Answer Date Recorded What is your housing situation today? 1 02/13/2025 Utilities Answer Date Recorded Do you have trouble paying f or utilities (for example, heat, electricity, water, phone)? 1 02/13/2025 Comments No Sex and Gender Information Value Date Recorded Sex Assigned at Not on file Legal Sex Female 6:12 AM VOCATIONAL AIDE Gender Identity Not on file Sexual Orientation Not on file Obstetrics History Last Filed Vital Signs Vital Sign Reading Time Taken Comments Blood Pressure 105/58 03/16/2025 7:30 AM CDT Pulse 93 03/16/2025 7:45 AM CDT Temperature 36.9 C (98.4 F) 03/16/2025 7:30 AM CDT Respiratory Rate 19 03/16/2025 7:30 AM CDT Oxygen Saturation 94% 03/16/2025 7:30 AM CDT Inhaled Oxygen Concentration - - Weight 109.6 kg (241 lb 10 oz) 03/13/2025 6:47 A M CDT Height 166.4 cm (5' 5.5) 03/13/2025 6:47 AM CDT Body Mass Index 39.6 03/13/2025 6:47 AM CDT Plan of Treatment Health Maintenance Due Date Last Done Comments Hepatitis C screening for ag e 18-79 1975 RSV vaccine for adults or (1 - Risk 60-74 years 1-dose series) 2017 Colonoscopy through age 75 08/15/202408/15, 08/15/2014 (Verified in Care Everywhere or Patient Record) COVID-19 vaccine series ( season) 2025 07/22/2024, 08/08/2023, 07/08/2022, Additional history exists Mammogram for age 45-75 09/26/2025 09/26/20, 09/19/2023, 05/26/2022 Medicare Wellness for age 65+ 11/06/2025, 10/25/2023, 09/15/2022, Additional history exists Depression screening for age 12+ 11/08/2025 11/08/2024, 11/06/2024, 11/05/2024, Additional history exists BMI (ht and wt on same day) for age 18+ 02/13/2026 02/13/2025, 11/21/2024, 11/05/2024, Additional history exists Tetanus booster 02/08/2028 02/07/2018, 01/15, 04/29/2008, Additional history exists Lipids for age 45-75 09/18/2029 09/18/2024, 10/25/2023, 06/30/2023, Additional history exists Hepatitis B series for 19+ Completed 11/11, 11/11/2008, 06/05/2008, Additional history exists Tdap Completed 02/07/2018, 01/15, 10/22/2007 Zoster (shingles) series for age 50+ Completed 10/15/2020, 07/31/2020 Pneumococcal series for age 50+ Completed , 10/26/1999 DEXA/DXA scan for age 65+ Completed 01/23/2023 Influenza Vaccine Completed 07/22/2024, , 07/15/2021, Additional history exists Medical Devices Implanted Type Area Farrowing Manager Device Identifier Shelf Expiration Date Model / Serial / Lot Cleo Easypack 2.5cc Magnetos - [id number] Implanted:Qty : 1 on 03/13/2025 by Shawn Cm MD at [facility] N/A: Lumbar Vertebrae [employer] 09/15/2029 [id number] / / [id number] Yevgeniy Lmbr 5.5x40mm Capped - [id number] Implanted:Qty : 1 on 03/13/2025 by Shawn Cm MD at [facility] N/A: Lumbar Vertebrae Medtronic Spine/Ortho [id number] / / Yevgeniy Lmbr 5.5x35mm Capped - [id number] Implanted:Qty : 1 on 03/13/2025 by Shawn Cm MD at [facility] N/A: Lumbar Vertebrae Medtronic Spine/Ortho [id number] / / Spacer Lordotic Lg [id number] 7 Deg Nanolock Tas - [id number] Implanted:Qty : 1 on 03/13/2025 by Shawn Cm MD at [facility] N/A: Lumbar Vertebrae [employer]onic Spine/Ortho 03/24/2025 [id number] / / [id number] Bone 1-4mm 30cc Medtronic Chips Canclls Freeze Dried - [id number] Implanted:Qty : 1 on 03/13/2025 by Shawn Cm MD at [facility] N/A: Lumbar Vertebrae Medtronic Spine/Ortho [id number] / [id number] / Description:Scanner in OR 17 not working Pur: [id number] Bone 1-4mm 30cc Medtronic Chips Canclls Freeze Dried - [id number] Implanted:Qty : 1 on 03/13/2025 by Shawn Cm MD at [facility] N/A: Lumbar Vertebrae Med[employer]onic Spine/Ortho 01/24/2029 [id number] / [id number] / Description:Scanner is not w orking in OR 17 Pur:[id number] Screw Spinal 5.5x20mm Titnm - [id number] Implanted:Qty : 3 on 03/13/2025 by Shawn Cm MD at [facility] N/A: Lumbar Vertebrae Medtronic Spine/Ortho [id number] / / Set Screw 5.5/6.0 Solera Voyager - [id number] Implanted:Qty : 4 on 03/13/2025 by Shawn mC MD at [facility] N/A: Lumbar Vertebrae Medtronic Spine/Ortho [id number] / / Screw Spinal 6.5x50mm Voyager Mas - [id number] Implanted:Qty : 2 on 03/13/2025 by Shawn Cm MD at [facility] N/A: Lumbar Vertebrae Medtronic Spine/Ortho [id number] / / Screw Lmbr 6.5x45 Voyager Mas - [id number] Implanted:Qty : 2 on 03/13/2025 by Shawn Cm MD at [facility] N/A: Lumbar Vertebrae Medtronic Spine/Ortho [id number] / / Explanted Type Area Farrowing Manager Device Identifier Shelf Expiration Date Model / Serial / Lot Pin Spine 100mm Perc Reference - [id number] Explanted:Qty : 1 on 03/13/2025 by Shawn Cm MD at [facility] N/A: Lumbar Vertebrae [employer] 12/02/2027 [id number] / / [id number] Procedures Procedure Name Priority Date/Time Associated Diagnosis Comments SCAN-CARDIAC STRIP 03/16/2025 9:59 AM CDT SCAN-CARDIAC STRIP 03/15/2025 9:56 AM CDT GLUCOSE METER Timed 03/15/2025 8:41 AM CDT HEMOGLOBIN Early AM 03/15/2025 7:53 AM CDT XR SPINE LUMBAR 2 VIEWS Routine 03/14/2025 4:42 PM CDT SCAN-CARDIAC STRIP 03/14/2025 9:15 AM CDT CBC WITH AUTO DIFFERENTIAL Early AM 03/14/2025 7:02 AM CDT CBC WITH AUTO DIFFERENTIAL Early AM 03/14/2025 7:02 AM CDT SCAN-CARDIAC STRIP 03/13/2025 6:11 PM CDT COMP METABOLIC PANEL STAT 03/13/2025 5:53 PM CDT XR C-ARM EQUAL OR LESS 1 HR Routine 03/13/2025 12:15 PM CDT XR SPINE 1 VIEW PORTABLE Routine 03/13/2025 9:31 AM CDT XR SPINE 1 VIEW PORTABLE Routine 03/13/2025 8:25 AM CDT ENDOTRACHEAL TUBE Routine 03/13/2025 7:54 AM CDT ENDOTRACHEAL TUBE Routine 03/13/2025 7:54 AM CDT ENDOTRACHEAL TUBE Routine 03/13/2025 7:54 AM CDT SURGICAL EXPOSURE LUMBAR SPINE ANTERIOR APPROACH Tier 4 03/13/2025 7:14 AM CDT SPONDYLOLISTHES IS, LUMBOSACRALSTEN OSIS, LUMBOSACRALRADI CULOPATHY, LUMBOSACRAL Case Notes 210 MINS-0730VOYAGER 5.5/6.0 (PERC)HARSHIL CHIRINOS Our Medtronic MP addsTitan instTitan trails Harshil rios Voyager x4 confirmed w/Rigoberto Rodriguez [phone] 03/04 JTAUTOGRAFTALLOGRAFT CANELLOUS (FROZEN, FREEZE DRIED)MAGNETO'S (SYNTHETIC)C-ARMO ARM AND STEALTH- email sent to confirm 730 w/Naeem/ProNAv-confirmed by Naeem/email 01/21-AWCELL SAVER- confirmed 0730 w/Abelardo #[id number] 01/20 AW// CELL SAVER CONFIRMED WITH ELIZABETH 03/12 ANDERSQUJERZY TABLEPORTABLE XRAYFLIPINSERT MAYES CATHETER Special Needs HT 5'5 WT 109.8 kg BMI 40.27Eliquis last dose 03/06Wegovy last dose 02/27OSA no tx Epilepsy MDRO message sent to IP ordered precautions FUSION ANTERIOR POSTERIOR MINIMALLY INVASIVE LEVEL 01 Tier 4 03/13/2025 7:14 AM CDT SPONDYLOLISTHES IS, LUMBOSACRALSTEN OSIS, LUMBOSACRALRADI CULOPATHY, LUMBOSACRAL Case Notes 210 MINS-0730VOYAGER 5.5/6.0 (PERC)HARSHIL CHIRINOS Our Medtronic MP addsTitan instTitan trails Harshil rios Voyager x4 confirmed w/Rigoberto Rodriguez [phone] 03/04 JTAUTOGRAFTALLOGRAFT CANELLOUS (FROZEN, FREEZE DRIED)MAGNETO'S (SYNTHETIC)C-ARMO ARM AND STEALTH- email sent to confirm 730 w/Naeem/Dorene-confirmed by Naeem/email 01/21-AWCELL SAVER- confirmed 0730 w/Abelardo #[id number] 01/20 AW// CELL SAVER CONFIRMED WITH ELIZABETH 03/12 MEGHAN TABLEPORTABLE XRAYFLIPINSERT MAYES CATHETER Special Needs HT 5'5 WT 109.8 kg BMI 40.27Eliquis last dose 03/06Wegovy last dose 02/27OSA no tx Epilepsy MDRO message sent to IP ordered precautions TYPE & SCREEN Preop 03/13/2025 6:02 AM CDT SCAN-CARDIAC STRIP 03/13/2025 12:00 AM CDT SCAN-OPERATIVE/CO OCEDURE REPORT 03/13/2025 12:00 AM CDT CBC WITH AUTO DIFFERENTIAL Routine 02/13/2025 3:57 PM CDT Pre-op examination BASIC METABOLIC PANEL Routine 02/13/2025 3:57 PM CDT Pre-op examination XR MAMMO SABRINA BILAT SCREEN Routine 09/26/2024 2:16 PM VOCATIONAL AIDE Encounter for screening mammogram for malignant neoplasm of breast LIPID PANEL W REFLEX MEASURED LDL Routine 09/18/2024 10:19 AM VOCATIONAL AIDE Hyperlipidemia with target LDL less than 70 XR DXA BONE DENSITY 2 SITES AXIAL Routine 01/23/2023 2:32 PM CDT Menopause SCAN-COLONOSCOPY 08/15/2014 12:00 AM CDT from Last 3 Months or Most Recently Relevant to Health Maintenance Results * SCAN-CARDIAC STRIP (03/16/2025 9:59 AM CDT) us Scanner OTHER Final Result * SCAN-CARDIAC STRIP (03/15/2025 9:56 AM CDT) us Scanner OTHER Final Result * (ABNORMAL) GLUCOSE METER (03/15/2025 8:41 AM CDT) GLUCOSE METER 163(H) 65 - 100 mg/dL 03/15/2025 8:46 AM CDT [facility] Blood BLOOD SPECIMEN / Unknown 03/15/2025 8:41 AM CDT 03/15/2025 8:46 AM CDT us Shawn Cm MD CHEMISTRY Final Result [facility] SENDOUT INTERNAL ZIP [phone] [place] [address] * (ABNORMAL) Hemoglobin - In AM (03/15/2025 7:53 AM CDT) HEMOGLOBIN 11.7(L) 12.0 - 16.0 g/dL 03/15/2025 8:02 AM CDT [facility] MCV 87 80 - 100 fL 03/15/2025 8:02 AM CDT [facility] Blood BLOOD SPECIMEN / Unknown Venipuncture / Unknown 03/15/2025 7:53 AM CDT 03/15/2025 7:58 AM CDT Narrative [facility] - 03/15/2025 8:02 AM CDT Call surgeon if Hemoglobin is less than 9. us Ramone [facility] Final Re sult [facility] SENDOUT INTERNAL ZIP [phone] [place] [address] * XR SPINE LUMBAR 2 VIEWS (03/14/2025 4:42 PM CDT) Anatomical Region Laterality Modality LUMBAR SPINE Computed Radiogr aphy 03/14/2025 4:42 PM CDT Impressions 03/14/2025 4:57 PM CDT 5 lumbar vertebral bodies. Interval interbody and posterior spinal fixation across L5-S1 with improvement in the degree of anterolisthesis of L5. 2 mm anterolisthesis of L4 on L5, 1 mm anterolisthesis of L3 on L4 and 2 mm retrolisthesis of L2 on L3 unchanged versus the prior radiograph. Narrative 03/14/2025 4:57 PM CDT For Patients: As a result of the Cures Act, medical imaging exams and procedure reports are released immediately into your electronic medical record. You may view this report before your referring provider. If you have questions, please contact your health care provider. EXAM: XR SPINE LUMBAR 2 VIEWS LOCATION: [facility] DATE: 03/14/2025 INDICATION: Postop evaluation. COMPARISON: Lumbar spine CT 12/20/2024, radiograph 11/06/2024 Procedure Note Shawn Gamino MD - 03/14/2025 For Patients: As a result of the Cures Act, medical imagingexams and procedure reports are released immediately into your electronicmedical record. You may view this report before your referring provider.If you have questions, please contact your health care provider. EXAM: XR SPINE LUMBAR 2 VIEWS LOCATION: [facility] DATE: 03/14/2025 INDICATION: Postop evaluation. COMPARISON: Lumbar spine CT 12/20/2024, radiograph 11/06/2024 IMPRESSION: 5 lumbar vertebral bodies. Interval interbody and posterior spinalfixation across L5-S1 with improvement in the degree of anterolisthesis ofL5. 2 mm anterolisthesis of L4 on L5, 1 mm anterolisthesis of L3 on L4 and2 mm retrolisthesis of L2 on L3 unchanged versus the prior radiograph. us Ramone [facility] Final Re sult * SCAN-CARDIAC STRIP (03/14/2025 9:15 AM CDT) us Scanner OTHER Final Result * (ABNORMAL) CBC WITH AUTO DIFFERENTIAL (03/14/2025 7:02 AM CDT) WHITE BLOOD COUNT 14.5(H) 4.5 - 11.0 thou/cu mm 03/14/2025 7:42 AM T [facility] RED BLOOD COUNT 4.38 4.00 - 5.20 mil/cu mm 03/14/2025 7:42 AM [facility] HEMOGLOBIN 11.9(L) 12.0 - 16.0 g/dL 03/14/2025 7:42 AM [facility] HEMATOCRIT 38.4 33.0 - 51.0 % 03/14/2025 7:42 AM [facility] MCV 88 80 - 100 fL 03/14/2025 7:42 AM [facility] MCH 27.2 26.0 - 34.0 pg 03/14/2025 7:42 AM [facility] MCHC 31.0(L) 32.0 - 36.0 g/dL 03/14/2025 7:42 AM [facility] RDW 12.9 11.5 - 15.5 % 03/14/2025 7:42 AM [facility] PLATELET COUNT 243 140 - 440 thou/cu mm 03/14/2025 7:42 AM [facility] MPV 10.9 6.5 - 11.0 fL 03/14/2025 7:42 AM [facility] NRBC 0.0 % 03/14/2025 7:42 AM [facility] ABS NRBC 0.0 thou /cu mm 03/14/2025 7:42 AM [facility] % NEUT 76.1 % 03/14/2025 7:42 AM [facility] % LYMPH 14.5 % 03/14/2025 7:42 AM [facility] % MONO 8.7 % 03/14/2025 7:42 AM [facility] % EOS 0.1 % 03/14/2025 7:42 AM CDT [facility] % BASO 0.1 % 03/14/2025 7:42 AM CDT [facility] % IMMATURE GRAN (METAS,MYELOS,CO OS) 0.5 % 03/14/2025 7:42 AM CDT [facility] ABSOLUTE NEUTROPHILS 11.0(H) 1.7 - 7.0 thou/cu mm 03/14/2025 7:42 AM CDT [facility] ABSOLUTE LYMPHOCYTES 2.1 0.9 - 2.9 thou/cu mm 03/14/2025 7:42 AM CDT [facility] ABSOLUTE MONOCYTES 1.3(H) <0.9 thou/cu mm 03/14/2025 7:42 AM CDT [facility] ABSOLUTE EOSINOPHILS 0.0 <0.5 thou/cu mm 03/14/2025 7:42 AM CDT [facility] ABSOLUTE BASOPHILS 0.0 <0.3 thou/cu mm 03/14/2025 7:42 AM CDT [facility] ABSOLUTE IMMATURE GRANULOCYTES(MET ,MYELOS,PROS) 0.1 <0.3 thou/cu mm 03/14/2025 7:42 AM CDT [facility] Blood BLOOD SPECIMEN / Unknown Butterfly / Unknown 03/14/2025 7:02 AM CDT 03/14/2025 7:35 AM CDT us Robles Jorge MD HEMATOLOGY Final Result [facility] SENDOUT INTERNAL ZIP [id number] [place], [place] [id number] * SCAN-CARDIAC STRIP (03/13/2025 6:11 PM CDT) us Scanner OTHER Final Result * (ABNORMAL) COMP METABOLIC PANEL (03/13/2025 5:53 PM CDT) SODIUM 137 136 - 145 mmol/L 03/13/2025 6:46 PM CDT [facility] POTASSIUM 4.6 3.5 - 5.1 mmol/L 03/13/2025 6:46 PM CDT [facility] CHLORIDE 103 98 - 107 mmol/L 03/13/2025 6:46 PM [facility] CO2,TOTAL 23 22 - 29 mmol/L 03/13/2025 6:46 PM [facility] ANION GAP 11 5 - 18 03/13/2025 6:46 PM [facility] GLUCOSE 134(H) 70 - 99 mg/dL 03/13/2025 6:46 PM [facility] CALCIUM 8.9 8.8 - 10.4 mg/dL 03/13/2025 6:46 PM [facility] Comment: Reference ranges for this test were updated on 08/20/2024 to reflect our healthy population more accurately. Reference range changes are not retroactively applied to results, but previous results using the same methodology can be interpreted in the context of the new reference range. BUN 17 8 - 23 mg/dL 03/13/2025 6:46 PM [facility] CREATININE 0.75 0.50 - 0.90 mg/dL 03/13/2025 6:46 PM [facility] BUN/CREAT RATIO 23(H) 10 - 20 6:46 PM [facility] eGFR 87(L) >90 mL/min/1. 73m2 03/13/2025 6:46 PM [facility] Comment:As of 2021, eG FR is calculated by the CKD-EPI creatinine equation without race adjustment. eGFR can be influenced by muscle mass, exercise, and diet. The reported eGFR is an estimation only and is only applicable if the renal function is stable. ALBUMIN 3.9(L) 4.0 - 4.9 g/dL 03/13/2025 6:46 PM [facility] PROTEIN,TOTAL 6.7 6.0 - 8.0 g/dL 03/13/2025 6:46 PM [facility] BILIRUBIN,TOTAL 0.2 0.0 - 1.2 mg/dL 03/13/2025 6:46 PM [facility] ALK PHOSPHATASE 59 35 - 104 IU/L 03/13/2025 6:46 PM [facility] ALT (SGPT) 15 10 - 35 IU/L 03/13/2025 6:46 PM [facility] AST (SGOT) 22 10 - 35 IU/L 03/13/2025 6:46 PM CDT [facility] Blood BLOOD SPECIMEN / Unknown Venipuncture / Unknown 03/13/2025 5:53 PM CDT 03/13/2025 6:14 PM CDT Robles Jorge MD CHEMISTRY Final Result [facility] SENDOUT INTERNAL ZIP [id number] [address] [place] [address] * XR C-ARM EQUAL OR LESS 1 HR (03/13/2025 12:15 PM CDT) Anatomical Region Laterality Modality Computed Radiogr aphy 03/13/2025 12:1 5 PM CDT Impressions 03/13/2025 7:27 PM CDT 1. Intraprocedure fluoroscopy provided for localization purposes. Correlate with procedure note and intraprocedural finding. Narrative 03/13/2025 7:27 PM CDT For Patients: As a result of the Cures Act, medical imaging exams and procedure reports are released immediately into your electronic medical record. You may view this report before your referring provider. If you have questions, please contact your health care provider. EXAM: XR C-ARM EQUAL OR LESS 1 HR LOCATION: [facility] DATE: 03/13/2025 INDICATION: free text)->intra op COMPARISON: None. TECHNIQUE: Intraoperative fluoroscopy performed during the patient's procedure. RADIATION DOSE: CARO 6.32 mGy FINDINGS: 4 intraoperative fluoroscopic views of the lumbar spine were obtained for spinal localization. Total number of fluoroscopic images: 4 The radiologist was not present for the examination. Procedure Note Conner Marques MD - 03/13/2025 For Patients: As a result of the s Act, medical imagingexams and procedure reports are released immediately into your electronicmedical record. You may view this report before your referring provider.If you have questions, please contact your health care provider. EXAM: XR C-ARM EQUAL OR LESS 1 HR LOCATION: [facility] DATE: 03/13/2025 INDICATION: free text)->intra op COMPARISON: None. TECHNIQUE: Intraoperative fluoroscopy performed during the patient'sprocedure. RADIATION DOSE: CARO 6.32 mGy FINDINGS: 4 intraoperative fluoroscopic views of the lumbar spine were obtained forspinal localization. Total number of fluoroscopic images: 4 The radiologist was not present for the examination. IMPRESSION: 1. Intraprocedure fluoroscopy provided for localization purposes.Correlate with procedure note and intraprocedural finding. Shawn Cm MD FLUOROSCOPY Final Result * XR SPINE 1 VIEW PORTABLE (03/13/2025 9:31 AM CDT) Only the most recent of2 resultswithin the time period is included. Anatomical Region Laterality Modality Spine, CERVICAL SPINE, THORACIC SPINE, LUMBAR SP INE Computed Radiography 03/13/2025 9:31 AM CDT Impressions 03/13/2025 10:09 AM CDT A single lateral and two AP images of the lumbar spine were obtained during the patient's operation. Nomenclature presumes 5 lumbar vertebral bodies. New anterior/interbody fusion hardware in the L5-S1 disc space with worship of the intervertebral disc space height. Grade 1 anterolisthesis of L5 on S1 in the setting of previously demonstrated chronic L5 pars defects, as before. On the lateral view obtained at 09:13 hours, irregular hyperdense material projecting over the presacral/pelvic region, which may represent a surgical sponge. On the subsequently obtained AP images (obtained at 09:16 and 09:18 hours), the presumed surgical sponge is no longer visualized projecting over the pelvis. A couple of metallic clips are again seen projecting over the pelvis. Scattered gas and stool within the colon. Findings were discussed by myself by phone with Dr. Cm at 09:45 hours Central time 03/13/2025. Narrative 03/13/2025 10:09 AM CDT For Patients: As a result of the 21st Century Cures Act, medical imaging exams and procedure reports are released immediately into your electronic medical record. You may view this report before your referring provider. If you have questions, please contact your health care provider. EXAM: XR SPINE 1 VIEW PORTABLE LOCATION: [facility] DATE: 03/13/2025 INDICATION: Spinal localization. COMPARISON: Lumbar spine radiographs 03/13/2025 at 08:[address] lumbar spine 12/20/2024. Lumbar spine radiographs dated 11/06/2024. Procedure Note Chirag Reeves MD - 03/13/2025 For Patients: As a result of the Cures Act, medical imagingexams and procedure reports are released immediately into your electronicmedical record. You may view this report before your referring provider.If you have questions, please contact your health care provider. EXAM: XR SPINE 1 VIEW PORTABLE LOCATION: [facility] DATE: 03/13/2025 INDICATION: Spinal localization. COMPARISON: Lumbar spine radiographs 03/13/2025 at 08:[address] lumbarspine 12/20/2024. Lumbar spine radiographs dated 11/06/2024. IMPRESSION: A single lateral and two AP images of the lumbar spine were obtainedduring the patient's operation. Nomenclature presumes 5 lumbar vertebralbodies. New anterior/interbody fusion hardware in the L5-S1 disc spacewith worship of the intervertebral disc space height. Grade 1anterolisthesis of L5 on S1 in the setting of previously demonstratedchronic L5 pars defects, as before. On the lateral view obtained at 09:13hours, irregular hyperdense material projecting over the presacral/pelvicregion, which may represent a surgical sponge. On the subsequentlyobtained AP images (obtained at 09:16 and 09:18 hours), the presumedsurgical sponge is no longer visualized projecting over the pelvis. Acouple of metallic clips are again seen projecting over the pelvis.Scattered gas and stool within the colon. Findings were discussed by myself by phone with Dr. Cm at 09:45 hoursCentral time 03/13/2025. us Shawn Cm MD GENERAL IMAGING Final Result * HCHG TUBE PR1, HCHG INSTRUMENT DISP PR10, HCHG STYLET PR1 (03/13/2025 7:54 AM CDT) Narrative Caryn Wells CRNA - 03/13/2025 7:54 AM CDT Caryn Wells CRNA 03/13/2025 7:55 AM Procedure: ETT Patient location during procedure: OR ETT Properties Mask Ventilation: easy and oral airway Final Technique: video laryngoscopy Type: straight Location: oral Cuffed: yes Tube Size: 7.0 mm Stylet: yes Laryngoscope Blade: Glidescope Blade Size: 3 Cormack-Lehane Grade View: 1 Insertion Attempts: 1 Placement Verification: auscultation, end tidal CO2 and symmetrical chest wall movement Assessment: dentition unchanged, atraumatic and pharynx clear Secured at: 22 Measured From: teeth Bite Block: soft Difficulty: 0 (not difficult) Antonio Peña MD ANESTHESIA PX NOTE ORD ERABLES Final Result * Type and Screen (03/13/2025 6:02 AM CDT) Pathologist [facility] ABORH A Rh Negative 03/13/2025 7:05 AM CDT [facility] BLOOD BANK ANTIBODY SCREEN Negative Negative 03/13/2025 7:05 AM CDT [facility] BLOOD BANK SPECIMEN EXPIRATION DATE/TIME 03/16/25 23:59 03/13/2025 7:05 AM CDT [facility] BLOOD BANK Blood BLOOD SPECIMEN / Unknown Non-Lab Venipuncture / Unknown 03/13/2025 6:02 AM CDT 03/13/2025 6:10 AM CDT Shawn Cm MD BLOOD BANK Final Result Performing Organization Address City/State/[facility] Co de Phone Number [facility] BLOOD BANK [address] [place] [address] * SCAN-CARDIAC STRIP (03/13/2025 12:00 AM CDT) Narrative 03/13/2025 12:00 AM CDT Ordered by an unspecified provider. us Other Clinical Staff OTHER Final Resul t * SCAN-OPERATIVE/PROCEDURE REPORT (03/13/2025 12:00 AM CDT) Narrative 03/13/2025 12:00 AM CDT Ordered by an unspecified provider. us Other Clinical Staff OTHER Final Resul t * CBC AND DIFFERENTIAL (02/13/2025 3:57 PM CDT) WHITE BLOOD CELL COUNT 8.4 3.8 - 10.8 Thousand/u L [facility] RED BLOOD CELL COUNT 4.79 3.80 - 5.10 Million/uL [facility] HEMOGLOBIN 13.5 11.7 - 15.5 g/dL [facility] HEMATOCRIT 41.6 35.0 - 45.0 % [facility] MCV 86.8 80.0 - 100.0 fL [facility] MCH 28.2 27.0 - 33.0 pg [facility] MCHC 32.5 32.0 - 36.0 g/dL [facility] Comment: For adults, a slight decrease in the calculated MCHC value (in the range of 30 to 32 g/dL) is most likely not clinically significant; however, it should be interpreted with caution in correlation with other red cell parameters and the patient's clinical condition. RDW 13.4 11.0 - 15.0 % [facility] PLATELET COUNT 263 140 - 400 Thousand/u L [facility] MPV 11.0 7.5 - 12.5 fL [facility] ABSOLUTE NEUTROPHILS 4,469 1,500 - 7,800 cells/uL [facility] ABSOLUTE LYMPHOCYTES 2,999 850 - 3,900 cells/uL [facility] ABSOLUTE MONOCYTES 571 200 - 950 cells/uL [facility] ABSOLUTE EOSINOPHILS 311 15 - 500 cells/uL [facility] ABSOLUTE BASOPHILS 50 0 - 200 cells/uL [facility] NEUTROPHILS 53.2 % [facility] LYMPHOCYTES 35.7 % [facility] MONOCYTES 6.8 % [facility] EOSINOPHILS 3.7 % [facility] BASOPHILS 0.6 % [facility] Blood BLOOD SPECIMEN / Unknown 02/13/2025 3:57 PM CDT 02/13/2025 3:58 PM CDT Narrative [facility] - 02/14/2025 3:08 AM CDT FASTING:NO FASTING: NO us Harvey CORTES HEMATOLOGY Final Resul t [employer] [facility] [address] [place] [address], [place] [phone] [facility] [address] [place] [address] * BASIC METABOLIC PANEL (02/13/2025 3:57 PM CDT) GLUCOSE 85 65 - 139 mg/dL [facility] Comment: Non-fasting reference interval UREA NITROGEN (BUN) 20 7 - 25 mg/dL [facility] CREATININE 0.72 0.50 - 1.05 mg/dL [facility] EGFR 92 > OR = 60 mL/min/1. 73m2 [facility] BUN/CREATININE RATIO SEE NOTE: 6 - 22 (calc) [facility] Comment: Not Reported: BUN and Creatinine are within reference range. SODIUM 137 135 - 146 mmol/L [facility] POTASSIUM 4.2 3.5 - 5.3 mmol/L [facility] CHLORIDE 104 98 - 110 mmol/L [facility] CARBON DIOXIDE 23 20 - 32 mmol/L [facility] ELECTROLYTE BALANCE 10 7 - 17 mmol/L (calc) [facility] CALCIUM 9.9 8.6 - 10.4 mg/dL [facility] Blood BLOOD SPECIMEN / Unknown 02/13/2025 3:57 PM CDT 02/13/2025 3:58 PM CDT Narrative [employer] - 02/14/2025 5:24 AM CDT FASTING:NO FASTING: NO Harvey CORTES CHEMISTRY Final Resul t [employer] [facility] [address] [place] [address], [facility] [address] [place] [address] * XR MAMMO SABRINA BILAT SCREEN (09/26/2024 2:16 PM VOCATIONAL AIDE) Anatomical Region Laterality Modality BREASTS, Breast Left, Breast Right Bilateral Mammography Impressions 09/28/2024 4:11 PM VOCATIONAL AIDE There is no radiographic evidence for malignancy. Recommend annual mammograms. MAMMOGRAM ASSESSMENT: ACR 1 Negative PATIENTS: You will also receive a letter with your examination results in an easy to read format. If you have questions about your results, please contact your referring provider. Narrative 09/28/2024 4:11 PM VOCATIONAL AIDE For Patients: As a result of the Century Cures Act, medical imaging exams and procedure reports are released immediately into your electronic medical record. You may view this report before your referring provider. If you have questions, please contact your health care provider. XR MAMMO SABRINA BILAT SCREEN [[id number]] CLINICAL HISTORY: This is an asymptomatic 69 y.o. patient. INDICATION FOR EXAM: Mammogram Screening. TECHNIQUE: CC & MLO views were obtained. This study was evaluated with the assistance of Computer-Aided Detection. Breast Tomosynthesis was used in interpretation. COMPARISON FILM: Yes 09/19/23 [facility] 05/26/22 [employer] FINDINGS: There are scattered areas of fibroglandular density. There are no dominant masses, suspicious micro calcifications or areas of architectural distortion. us Harvey CORTES MAMMO Final Resul t * (ABNORMAL) LIPID PANEL W REFLEX MEASURED LDL (09/18/2024 10:19 AM VOCATIONAL AIDE) CHOLESTEROL, TOTAL 150 <200 mg/dL [facility] HDL CHOLESTEROL 46(L) > OR = 50 mg/dL [facility] TRIGLYCERIDES 183(H) <150 mg/dL [facility] LDL-CHOLESTEROL 76 mg/dL (calc) [facility] Comment: Reference range: <100 Desirable range <100 mg/dL for primary prevention; <70 mg/dL for patients with CHD or diabetic patients with > or = 2 CHD risk factors. LDL-C is now calculated using the Jeremie calculation, which is a validated novel method providing better accuracy than the Friedewald equation in the estimation of LDL-C. Wicho PAYNE et al. TIM. 2013;310(19): 4730-9672 (http://education.Data Virtuality.Anaergia/faq/KRG606) CHOL/HDLC RATIO 3.3 <5.0 (calc) [facility] NON HDL CHOLESTEROL 104 <130 mg/dL (calc) [facility] Comment: For patients with diabetes plus 1 major ASCVD risk factor, treating to a non-HDL-C goal of <100 mg/dL (LDL-C of <70 mg/dL) is considered a therapeutic option. Blood BLOOD SPECIMEN / Unknown 09/18/2024 10:19 AM VOCATIONAL AIDE 09/18/2024 10:19 AM VOCATIONAL AIDE Narrative [facility] - 09/19/2024 4:37 AM VOCATIONAL AIDE FASTING:YES FASTING: YES Harvey CORTES CHEMISTRY Final Resul t [employer] [facility] [address] [place] [address], [facility] [address] [place] [address] * XR DXA BONE DENSITY 2 SITES AXIAL (01/23/2023 2:32 PM CDT) Anatomical Region Laterality Modality Spine, HIPS, HIPL, HIPR Computed Radiography 01/23/2023 2:32 PM CDT Impressions 01/23/2023 4:04 PM CDT NORMAL. Bone mineral density measurements are within normal limits using T score. Narrative 01/23/2023 4:04 PM CDT For Patients: As a result of the Century Cures Act, medical imaging exams and procedure reports are released immediately into your electronic medical record. You may view this report before your referring provider. If you have questions, please contact your health care provider. EXAM: XR DXA BONE DENSITY 2 SITES AXIAL LOCATION: [facility] DATE/TIME: 01/23/2023 2:32 PM INDICATION: I. [...] For Patients: As a result of the Century Cures Act, medical imagingexams and procedure reports are released immediately into your electronicmedical record. You may view this report before your referring provider.If you have questions, please contact your health care provider. EXAM: XR DXA BONE DENSITY 2 SITES AXIAL LOCATION: [facility] DATE/TIME: 01/23/2023 2:32 PM INDICATION: I. [...] measurements are within normal limits using Tscore. us Harvey CORTES DEXA Final Resul t * SCAN-COLONOSCOPY (08/15/2014 12:00 AM CDT) us Scanner OTHER Final Result from Last 3 Months or Most Recently Relevant to Health Maintenance Additional Health Concerns Infection Onset Date Last Indicated MRSA Clearance Comment:Infection Control Note: Hx 2009, surveillance criteria met, no need for further testing or isolation precautions. Do not delete or resolve the Infection Flag. 03/13/2025 03/13/2025 [id number] [place] [address] MEDICARE PART A HB ONLY [facility] Advance Directives * Full Code (Latest Code Status on File) Date Activated Date Inactivated Comments 03/13/2025 1:13 PM 03/16/2025 2:08 PM Question Answer Comments Code Status Discussion: Other * Full Code Date Activated Date Inactivated Comments 03/13/2025 5:56 AM 03/13/2025 1:13 PM Question Answer Comments Code Status Discussion: Unable to Assess Preferences, Provider to review later * Full Code Date Activated Date Inactivated Comments 10/28/2022 3:11 [...] Code Status Discussion: Reviewed Preferences Care Teams Six Color Press Operator Relationship Specialty [place] [address] [place] [address] PCP - General Physician Flight Tower Dispatcher 10/14/20 [place] [address] [place] [address] Consulting Physician Physician Flight Tower Dispatcher 07/02/21 Aleksandar Loepz MD [address] [address] Consulting Physician Surgery - General 03/03/22 Elza Rubi RN [address] [phone] Adjunct Professor Of Voice Registered Nurse 03/03/[address] [phone] Mill Washer/Hvac Technician Residential Lap Checker 03/03/22 Johanny Baires PA [address] [facility] [address] [place], [place] [phone] Physician Flight Tower Dispatcher 11/03/22 [place] [address] Adjunct Professor Of Voice 01/17/25
--- OUTSIDE RECORDS SUMMARY | 2025-03-17 17:29 | XMS_ITS | Clinical Summary ---
Author Organization [facility] Address [address] [place] [id number] Care Team Providers Care Ecological Modeler Name Role Phone Harvey Ely PA-C Primary Care Provider Allergies Active Allergy Reactions Criticality Noted Date [...] // Susie Oh RN, Bariatric Nurse , [facility] Weight Management 11/01/2022. Penicillins 12/04/2020 Simvastatin Other (See Comments) High 04/14/2009 Myalgias Statin Intolerance Documentation 2. Shared decision making discussion with patient regarding statins and patient choses to not trial a second or additional statin. Sulfamethoxazole-Trime thoprim Itching 07/12/2010 Medications ELIQUIS ANTICOAGULANT 5 MG tablet Take 1 tablet by mouth 2 times daily 3 Active albuterol (PROAIR HFA/PROVENTIL HFA/VENTOLIN HFA) 108 (90 Base) MCG/ACT inhaler Inhale 1-2 puffs into the lungs every 6 hours as needed for shortness of breath 2 Active atorvastatin (LIPITOR) 80 MG tablet Take 80 mg by mouth At Bedtime 2 Active citalopram (CELEXA) 40 MG tablet Take 40 mg by mouth daily Active cyclobenzaprine (FLEXERIL) 10 MG tablet Take 10 mg by mouth 3 times daily Active levETIRAcetam (KEPPRA) 1000 MG tablet Take 1,000 mg by mouth daily 3 Active lisinopril-hydroch lorothiazide (ZESTORETIC) 20-12.5 MG tablet Take 1 tablet by mouth daily 3 Active metaxalone (SKELAXIN) 800 MG tablet Take 800 mg by mouth 3 times daily 3 Active rosuvastatin (CRESTOR) 10 MG tablet Take 10 mg by mouth At Bedtime Active Encounters Date Type Department Care Team Description 02/19/2025 10:49 AM CDT - 02/19/2025 12:02 PM CDT Emergency [facility] Emergency Dept [address] [place] [address] Vishnu Ambriz MD Lumbar radiculopathy Discharge Disposition: Home or Self Care 02/19/2025 Travel from Last 3 Months Social History Tobacco Use Types Packs/Day Years Used Date Smoking Tobacco: Never Assessed Adolescent Education Answer Date Record ed Getting School Help Needed Not on file 07/08 Comments No Sex and Gender Information Value Date Recorded Sex Assigned at Not on file 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 Gender Identity Not on file Sexual Orientation Not on file Last Filed Vital Signs Vital Sign Reading Time Taken Comments Blood Pressure 102/76 02/19/2025 10:42 AM CDT Pulse 72 02/19/2025 10:42 AM CDT Temperature 37.2 C (98.9 F) 02/19/2025 10:42 AM CDT Respiratory Rate 18 02/19/2025 12:0 2 PM CDT Oxygen Saturation 99% 02/19/2025 10: 42 AM CDT Inhaled Oxygen Concentration - - Weight 120.2 kg (264 lb 15.9 oz) 2022 10:56 AM CDT Height 166.4 cm (5' 5.5) 06/13/2023 10 :56 AM CDT Body Mass Index 43.43 06/13/2023 10:56 AM CDT Plan of Treatment Health Maintenance Due Date Last Done Comments ADVANCE CARE PLANNING 1955 ANNUAL REVIEW OF HM ORDERS 1957 CT COLONOGRAPHY 1957 FIT 1957 FLEX SIG 1957 LIPID 1957 sDNA (Cologuard) 1957 HEPATITIS C SCREENING 1975 FALL RISK ASSESSMENT 2022 COLONOSCOPY 08/15/2024 08/15/2014 COLORECTAL CANCER SCREENING 08/15/2024 PHQ-2 (once per calendar year) 2024 COVID-19 VACCINE ( season) 2025 07/22/2024, 07/08/2022, 04/29/2022, Additional history exists MEDICARE ANNUAL WELLNESS VISIT 11/05/2025 11/05/2024, 10/25/2023, 09/15/2022, Additional history exists DIABETES SCREENING 06/13/2026 06/13/2023, 0 12/04/2020, 12/04/2020 MAMMO SCREENING 09/26/2026 09/26/2024, 09/15, 09/19/2023, Additional history exists DTAP/TDAP/TD VACCINE (4 - Td or Tdap) 02/08/2028 02/07/2018, 04/29/2008, 10/22/2007, Additional history exists RSV VACCINE (1 - 1-dose 75+ series) 2032 DEXA 01/23/2038 01/23/2023 ZOSTER VACCINE Completed 10/15/2020, 07/31/2020 PNEUMOCOCCAL VACCINE 50+ YEARS Completed 07/08/2022, 10/26/1999 INFLUENZA VACCINE Completed 07/22/2024, , 07/07/2022, Additional history exists HPV VACCINE Aged Out No longer eligi ble based on patient's age to complete this topic MENINGITIS VACCINE Aged Out No longer eligible based on patient's age to complete this topic Procedures Procedure Name Priority Date/Time Associated Diagnosis Comments BASIC METABOLIC PANEL STAT 06/13/2023 10:58 AM CDT from Last 3 Months or [...] - 15 mmol/L 06/13/2023 11:27 AM CDT LABORATORY Urea Nitrogen 19.0 8.0 - 23.0 [...] 10:58 AM CDT 06/13/2023 11:02 AM CDT us Jaida Smith DO LAB - BLOOD ORDERABLES Final Res ult [facility] [address] Lab (1st floor, no room number) [place] [address], [place] [phone] from Last 3 Months or Most Recently Relevant to Health Maintenance Insurance [facility] DUAL Care Teams Ecological Modeler Relationship Specialty Start Date End Date Harvey Ely [facility] [address] [place] [address] PCP - General Family Medicine 02/19/25
[2025-03-17 17:59] VITALS: BP 122/79; PULSE 81; RESP 14; TEMP 36.7; O2SAT 97; BMI 40.0
--- NOTE | 2025-03-17 18:47 | ED.GENADULT ---
HPI - General Adult General Time Seen by Provider: 18:47 <Analy Juarez MD - Last Filed: 03/18/25 16:51> Date Seen: 03/17/25 <Analy Juarez MD - Last Filed: 03/18/25 16:51> Chief complaint: Neuro Symptoms/Altered Deficit <Analy Juarez MD - Last Filed: 03/18/25 16:51> Stated complaint: difficulty speaking <Analy Juarez MD - Last Filed: 03/18/25 16:51> Time Seen by Provider: 03/17/25 18:36 <Analy Juarez MD - Last Filed: 03/18/25 16:51> Source: patient and RN notes reviewed <Analy Juarez MD - Last Filed: 03/18/25 16:51> Mode of arrival: ambulatory <Analy Juarez MD - Last Filed: 03/18/25 16:51> Limitations: no limitations <Analy Juarez MD - Last Filed: 03/18/25 16:51> History of Present Illness HPI narrative: This 69-year-old female is coming in at request of her surgeon for some word-finding difficulty in time orientation this morning. She feels better but was just tired wanted to go to bed at 4:00 p.m.. She had back surgery at [place], was there 5 days. She did have some reported hypotension thought to be too higher dose dilaudid, was on 8 mg. Is currently on 4 mg. She slept really well last night but woke up this morning, did not know date or time. She had no idea what day it was. She was having difficulty finding words and getting her words out but not slurring them. She has not noted any motor weakness, no visual changes. She states she had padded mall seizures as a child. She reports 2 episodes of seizures remotely. She was driving and than car was parked. She notes she came to and had urinated in the seat, she was disoriented after that and thought it was a seizure. In 2007, she feels she had chemical exposure to haUsTrendye compounds and 3 days later had of grand mall seizure, she states she quit breathing, her heart quit beating and she ended up intubated, they broke 1 of her teeth out of her mouth during the intubation. She has had no subsequent seizures that she is aware of. She is also using Flexeril. Her medication list is reviewed. She notes that she had a large bowel movement this morning. She has had no fevers chills, no cough or cold symptoms, she does ask if I can remove her bandages, has Steri-Strips which she is supposed to leave on but the bandages can come off. She has not been having any symptoms at her wound sites. She did get in bed later this afternoon and noted cramping in her feet and ankles. Patient is on apixaban 5 mg twice a day, is on Keppra 1500 mg twice a day. Patient is on Eliquis for history of intramural cardiac thrombus. She had an CT about 17 years ago and when she went off her Plavix and aspirin from the stent placement, ended up with an intramural thrombus. Patient does state that she knows when she has a seizure and does not feel that events of today were seizure nature. She has no tongue trauma, no loss of bowel or bladder. She does note that she did have a bowel movement today after not having 1 for 5 days. <Analy Juarez MD - Last Filed: 03/18/25 16:51> Related Data Home medications: Home Medications ?Medication ?Instructions ?Recorded ?Confirmed albuterol sulfate 90 mcg/actuation 2 puff inhalation PRN 07/03/22 03/03/24 aerosol inhaler apixaban 5 mg tablet (Eliquis) 5 mg PO BID 07/03/22 03/17/25 cholecalciferol (vitamin D3) 125 5,000 unit PO QDAY 07/03/22 03/03/24 mcg (5,000 unit) tablet citalopram 40 mg tablet 40 mg PO QDAY 07/03/22 03/17/25 fluticasone 250 mcg-salmeterol 50 ea inhalation PRN 07/03/22 03/03/24 mcg/dose blistr powdr for inhalation (Advair Diskus) levetiracetam 750 mg tablet 1,500 mg PO Q12H 07/03/22 03/17/25 lisinopril 20 1 tab PO QDAY 07/03/22 03/17/25 mg-hydrochlorothiazide 12.5 mg tablet Held on 03/17/25. Instructions: On hold until Pt can follow up post op with PCP metformin 500 mg tablet,extended 1,000 mg PO QDAY 07/03/22 03/03/24 release 24 hr multivitamin-ferrous ea PO 07/03/22 03/03/24 fumarate-folic acid 18 mg-400 mcg tablet (Certavite-Antioxidant) nitroglycerin 0.4 mg sublingual 0.4 mg sublingual Q5M PRN 07/03/22 03/03/24 tablet ciclopirox 8 % topical solution topical QPM 03/17/25 cyclobenzaprine 10 mg tablet 10 mg PO 3XD 03/17/25 03/17/25 hydromorphone 4 mg tablet mg PO 03/17/25 metoprolol succinate 25 mg 25 mg PO DAILY 03/17/25 03/17/25 tablet,extended release 24 hr rosuvastatin 20 mg tablet 20 mg PO QPM 03/17/25 03/17/25 semaglutide (weight loss) 2.4 2.4 mg subcut 03/17/25 mg/0.75 mL subcutaneous pen injector (Wegovy) <Analy Juarez MD - Last Filed: 03/18/25 16:51> Allergies/adverse reactions: Allergies Allergy/AdvReac Type Severity Reaction Status Date / Time Penicillins Allergy Intermediate hives Verified 03/17/25 17:50 <Analy Juarez MD - Last Filed: 03/18/25 16:51> Review of Systems Status of ROS: Reports: 6 or more systems reviewed and unremarkable except as noted in History and below <Analy Juarez MD - Last Filed: 03/18/25 16:51> [facility] Medical History: Medical History Seizures ?R56.9 - Unspecified convulsions (ICD-10) Elevated cholesterol ?E78.00 - Pure hypercholesterolemia, unspecified (ICD-10) Arthritis ?M19.90 - Unspecified osteoarthritis, unspecified site (ICD-10) Hypertension ?I10 - Essential (primary) hypertension (ICD-10) Heart attack ?I21.9 - Acute myocardial infarction, unspecified (ICD-10) <Analy Juarez MD - Last Filed: 03/18/25 16:51> Surgical History: Surgical History H/O bariatric surgery ?Z98.84 - Bariatric surgery status (ICD-10) <Analy Juarez MD - Last Filed: 03/18/25 16:51> Social History: Social History Smoking Status: Never smoker How often do you have a drink containing alcohol: never AUDIT-C Alcohol total score: 0 Non-prescribed substance use: denies use <Analy Juarez MD - Last Filed: 03/18/25 16:51> Exam Const: Vital Signs, click to edit/add: Vital Signs - 24 hr 03/17/25 17:59 03/17/25 20:28 Temperature 98.0 F 97.8 F Pulse Rate [Pulse Oximeter] 81 79 Respiratory Rate 14 18 Blood Pressure [Ri ght Upper Arm] 122/79 141/85 H Pulse Oximetry 97 97 Oxygen Delivery Me thod Room Air Room Air This very pleasant 69-year-old female seen in exam room 6. She is ambulating with a walker. Patient is sitting on the edge of the bed, she is alert, interactive, no apparent distress. Speech is succinct, seems to be speaking normally albeit maybe slower but I do not know her baseline. Pupils equal round reactive, sclera clear, symmetrical facial function. Lungs are clear, good air entry, no wheezing or crackles, no tachypnea. Bandages removed from her central lower abdomen under the pannus and her low back. Steri-Strips are still present. There is more ecchymosis around her lower abdominal incision but no erythema, no drainage. Her back wounds look excellent without any evidence of infection, certainly no drainage. She did ambulate in with her walker, she is functional using her arms and legs normal. No visual loss on confrontation. No tremors noted. <Analy Juarez MD - Last Filed: 03/18/25 16:51> Vital Signs, click to edit/add: Vital Signs - 24 hr 03/17/25 17:59 03/17/25 20:28 Temperature 98.0 F 97.8 F Pulse Rate [Pulse Oximeter] 81 79 Respiratory Rate 14 18 Blood Pressure [Ri ght Upper Arm] 122/79 141/85 H Pulse Oximetry 97 97 Oxygen Delivery Me thod Room Air Room Air <Essence Powell MD - Last Filed: 03/17/25 22:22> Documenting provider has reviewed patient's vital signs: yes <Analy Juarez MD - Last Filed: 03/18/25 16:51> Course Course ED Course: Patient has a complex history, she is anticoagulated, on Keppra 1500 mg twice a day for control of seizures with no seizures since 2007. She will get some baseline labs. It does not sound that there is concern for infectious etiology but will continue to consider that as we look at some baseline labs. I am going to talk to Neurology about doing head imaging with head CT and CT angiography of her head and neck. Will have them weigh in and see if they agree on doing this. Do not think she needs an MRI at this time and we do not have the capacity to do 1 after hours currently. She is aware that I will be contacting stroke Neurology at [place] and will talk to her after I have spoken with them. She did bring up medication side effect and certainly this is a plausible explanation of her symptoms but we do not want to miss more concerning etiologies like stroke. Did review with her that there are occasions where people will have strokes despite being on blood thinners. <Analy Juarez MD - Last Filed: 03/18/25 16:51> Reevaluation(s) Time of Reevaluation #1: 20:29 <Essence Powell MD - Last Filed: 03/17/25 22:22> Reevaluation #1: dr. Powell- care inherited from outgoing afternoon provider. Patient remaining asymptomatic according to nursing team. Head CT showing no signs of acute abnormality. Will proceed with CT angio. Neuro recommendations reviewed that were discussed without going provider. <Essence Powell MD - Last Filed: 03/17/25 22:22> Time of Reevaluation #2: 22:21 <Essence Powell MD - Last Filed: 03/17/25 22:22> Reevaluation #2: Reviewed CT angio head and neck findings with patient, reassuring. Neurology does not recommend further workup at this time. Episode was likely triggered by Anesthesia, fatigue, stress from surgery and her pain medications. Things have remained at baseline for her 6 hours here in the ED. She does feel comfortable going home and has reliable help. No additional workup is recommended unless symptoms persist or recur her according to neurology. Patient will continue her postoperative instructions given by the surgical team and keep them in the loop with any additional changes. She verbalizes understanding and agreement and has no additional concerns. <Essence Powell MD - Last Filed: 03/17/25 22:22> Consultations Consultation #1: Have spoken with Dr. Chairez from Stroke Neurology. Have reviewed the case. She does think we should proceed with CT and CT angiogram. If patient does not have a level 2 or [address] the [address] angiogram and CT is normal, she does not feel we need to proceed with MRI imaging. If all this is negative inpatient has resolved, she agrees that it is more likely medication side effect. There is also a possibility that could be seizure and postictal state but patient is on Keppra and makes this much less likely in her opinion as well. Patient can likely discharge home if no further symptoms and normal imaging. If anything is abnormal, we will contact her back and patient will likely need admission. Patient is updated on the plan. <Analy Juarez MD - Last Filed: 03/18/25 16:51> Time: 19:11 <Analy Juarez MD - Last Filed: 03/18/25 16:51> Vital Signs Vital signs: Initial Vital Signs Temperature 98.0 F 03/17/25 17:59 Temperature Source Temporal Artery Scan 03/17/25 17:59 Pulse Rate 81 03/17/25 17:59 Pulse Rhythm Regular 03/17/25 17:59 Respiratory Rate 14 03/17/25 17:59 Blood Pressure 122/79 03/17/25 17:59 Blood Pressure Mean 93 03/17/25 17:59 Blood Pressure Position Sitting 03/17/25 17:59 Pulse Oximetry 97 03/17/25 17:59 Oxygen Delivery Method Room Air 03/17/25 17:59 Vital Signs Temperature 98.0 F 03/17/25 17:59 Pulse Rate 81 03/17/25 17:59 Respiratory Rate 14 03/17/25 17:59 Blood Pressure 122/79 03/17/25 17:59 Pulse Oximetry 97 03/17/25 17:59 Oxygen Delivery Method Room Air 03/17/25 17:59 Temperature 97.8 F 03/17/25 20:28 Pulse Rate 79 03/17/25 20:28 Respiratory Rate 18 03/17/25 20:28 Blood Pressure 141/85 H 03/17/25 20:28 Pulse Oximetry 97 03/17/25 20:28 Oxygen Delivery Method Room Air 03/17/25 20:28 <Analy Juarez MD - Last Filed: 03/18/25 16:51> Initial Vital Signs Temperature 98.0 F 03/17/25 17:59 Temperature Source Temporal Artery Scan 03/17/25 17:59 Pulse Rate 81 03/17/25 17:59 Pulse Rhythm Regular 03/17/25 17:59 Respiratory Rate 14 03/17/25 17:59 Blood Pressure 122/79 03/17/25 17:59 Blood Pressure Mean 93 03/17/25 17:59 Blood Pressure Position Sitting 03/17/25 17:59 Pulse Oximetry 97 03/17/25 17:59 Oxygen Delivery Method Room Air 03/17/25 17:59 Vital Signs Temperature 98.0 F 03/17/25 17:59 Pulse Rate 81 03/17/25 17:59 Respiratory Rate 14 03/17/25 17:59 Blood Pressure 122/79 03/17/25 17:59 Pulse Oximetry 97 03/17/25 17:59 Oxygen Delivery Method Room Air 03/17/25 17:59 Temperature 97.8 F 03/17/25 20:28 Pulse Rate 79 03/17/25 20:28 Respiratory Rate 18 03/17/25 20:28 Blood Pressure 141/85 H 03/17/25 20:28 Pulse Oximetry 97 03/17/25 20:28 Oxygen Delivery Method Room Air 03/17/25 20:28 <Essence Powell MD - Last Filed: 06/02/25 22:22> Medical Decision Making Lab Data Lab results reviewed: Yes I reviewed the patient's lab results <Essence Powell MD - Last Filed: 03/17/25 22:22> Lab results narrative: Hemoglobin stable from discharge, electrolytes reassuring. No signs of cardiac disease or major electrolyte abnormalities. <Essence Powell MD - Last Filed: 03/17/25 22:22> Labs: Lab Results 03/17/25 Range/Units 20:18 WBC 9.42 (4.50-11.00) K/uL RBC 3.61 L (4.00-5.20) m/uL Hgb 10.0 L (12.0-16.0) gm/dL Hct 31.2 L (33.0-51.0) % MCV 86 (80-100) fL MCH 28 (26-34) pg MCHC 32 (32-36) gm/dL RDW Coeff of Pritesh 12.7 (11.5-15.5) % Plt Count 236 (140-440) K/uL Neut % (Auto) 59.0 (42.0-72.0) % Lymph % (Auto) 27.1 (20-44) % [place] % (Auto) 9.9 (0.0-11.0) % Eos % (Auto) 3.5 (0.0-7.0) % Baso % (Auto) 0.3 (0.0-3.0) % Neut # (Auto) 5.56 (1.7-7.0) K/uL Lymph # (Auto) 2.55 (0.90-2.90) K/uL [place] # (Auto) 0.90 (0.00-0.90) K/UL Eos # (Auto) 0.33 (0.00-0.50) K/uL Baso # (Auto) 0.03 (0.00-0.30) K/uL Abs Immat Gran (auto) 0.02 (0.00-0.30) K/uL Imm/Tot Granulo (auto) 0.2 % Sodium 133 L (135-149) mmol/L Potassium 3.5 L (3.6-5.1) mmol/L Chloride 99 (96-114) mmol/L Carbon Dioxide 29 (20-32) mmol/L Anion Gap 5 L (7-15) mEq/L BUN 16 (7-30) mg/dL Creatinine 0.7 (0.5-1.5) mg/dL Estimated Creat Clear 49.12 Estimated GFR 95 ml/min Glucose 100 (60-115) mg/dL Lactate 0.9 (0.5-1.9) mmol/L Calcium 8.6 (8.4-10.6) mg/dL Magnesium 2.2 (1.5-2.6) mg/dL Total Bilirubin 0.5 (0.1-1.5) mg/dL AST 34 (12-35) U/L ALT 21 (4-35) U/L Alkaline Phosphatase 88 (40-150) U/L Troponin I < 0.01 (0.01-0.04) ng/mL Total Protein 6.2 (6.0-8.3) g/dL Albumin 3.3 (3.3-5.0) g/dL <Analy Juarez MD - Last Filed: 03/18/25 16:51> Lab Results 03/17/25 Range/Units 20:18 WBC 9.42 (4.50-11.00) K/uL RBC 3.61 L (4.00-5.20) m/uL Hgb 10.0 L (12.0-16.0) gm/dL Hct 31.2 L (33.0-51.0) % MCV 86 (80-100) fL MCH 28 (26-34) pg MCHC 32 (32-36) gm/dL RDW Coeff of Pritesh 12.7 (11.5-15.5) % Plt Count 236 (140-440) K/uL Neut % (Auto) 59.0 (42.0-72.0) % Lymph % (Auto) 27.1 (20-44) % [place] % (Auto) 9.9 (0.0-11.0) % Eos % (Auto) 3.5 (0.0-7.0) % Baso % (Auto) 0.3 (0.0-3.0) % Neut # (Auto) 5.56 (1.7-7.0) K/uL Lymph # (Auto) 2.55 (0.90-2.90) K/uL [place] # (Auto) 0.90 (0.00-0.90) K/UL Eos # (Auto) 0.33 (0.00-0.50) K/uL Baso # (Auto) 0.03 (0.00-0.30) K/uL Abs Immat Gran (auto) 0.02 (0.00-0.30) K/uL Imm/Tot Granulo (auto) 0.2 % Sodium 133 L (135-149) mmol/L Potassium 3.5 L (3.6-5.1) mmol/L Chloride 99 (96-114) mmol/L Carbon Dioxide 29 (20-32) mmol/L Anion Gap 5 L (7-15) mEq/L BUN 16 (7-30) mg/dL Creatinine 0.7 (0.5-1.5) mg/dL Estimated Creat Clear 49.12 Estimated GFR 95 ml/min Glucose 100 (60-115) mg/dL Lactate 0.9 (0.5-1.9) mmol/L Calcium 8.6 (8.4-10.6) mg/dL Magnesium 2.2 (1.5-2.6) mg/dL Total Bilirubin 0.5 (0.1-1.5) mg/dL AST 34 (12-35) U/L ALT 21 (4-35) U/L Alkaline Phosphatase 88 (40-150) U/L Troponin I < 0.01 (0.01-0.04) ng/mL Total Protein 6.2 (6.0-8.3) g/dL Albumin 3.3 (3.3-5.0) g/dL <Essence Powell MD - Last Filed: 03/17/25 22:22> Imaging Data CT scan - head: Attestation: I have reviewed the pertinent imaging results. <Essenec Powell MD - Last Filed: 03/17/25 22:22> My impression: Normal head CT. <Essence Powell MD - Last Filed: 03/17/25 22:22> Radiologist's impression: IMPRESSION: No acute intracranial findings. Please note that all CT scans at this facility use dose modulation, iterative reconstruction, and/or weight-based dosing when appropriate to reduce radiation dose to as low as reasonably achievable. Dictated by Fabio Rahman MD @ 03/17/2025 8:23:54 PM <Essence Powell MD - Last Filed: 03/17/25 22:22> CT- Other: Attestation: I have reviewed the pertinent imaging results. <Essence Powell MD - Last Filed: 03/17/25 22:22> My impression: No intracranial vascular abnormality <Essence Powell MD - Last Filed: 03/17/25 22:22> Radiologist's impression: IMPRESSION: Patent proximal intracranial vasculature without intracranial aneurysms. Please note that all CT scans at this facility use dose modulation, iterative reconstruction, and/or weight-based dosing when appropriate to reduce radiation dose to as low as reasonably achievable. Dictated by: Emigdio Velasquez MD @ 03/17/2025 22:09:26 <Essenec Powell MD - Last Filed: 03/17/25 22:22> CT angio neck: Attestation: I have reviewed the pertinent imaging results. <Essence Powell MD - Last Filed: 03/17/25 22:22> My impression: Patent vessels <Essence Powell MD - Last Filed: 03/17/25 22:22> Radiologist's impression: IMPRESSION: Patent cervical vasculature. Please note that all CT scans at this facility use dose modulation, iterative reconstruction, and/or weight-based dosing when appropriate to reduce radiation dose to as low as reasonably achievable. Dictated by: Emigdio Velasquez MD @ 03/17/2025 22:07:28 <Essence Powell MD - Last Filed: 03/17/25 22:22> Discharge Plan Discharge Clinical Impression: Medication reaction Qualifiers: Encounter type: initial encounter Qualified Code(s): T50.905A - Adverse effect of unspecified drugs, medicaments and biological substances, initial encounter <Analy Juarez MD - Last Filed: 03/18/25 16:51> Patient Disposition: Home w/ Parent or Adult <Analy Juarez MD - Last Filed: 03/18/25 16:51> Condition: Improved <Analy Juarez MD - Last Filed: 03/18/25 16:51> Instructions: Acute Delirium (ED) <Analy Juarez MD - Last Filed: 03/18/25 16:51> Additional Instructions: I am glad that your symptoms have improved since the episode earlier today. We did not find any abnormalities on the angiograms of your head. There are no signs of stroke, blood flow blockages or abnormalities with the blood vessels. This is great news. I suspect that the episode with a combination of increased stress on her body after surgery, all of the medications you are taking and the recent anesthesia. I am glad that things seem to be back to normal. I think that things will continue to improve as you get moving more, get back in to your own routine. Continue drinking lots of fluids. It seems like you have good help available. Continue taking your pain and other postoperative medications as prescribed. Keep your surgical team in the loop there are any other surprising changes. The neurologist thinks that you do not need further workup for the symptoms that you had earlier today unless things keep recurring. <Analy Juarez MD - Last Filed: 03/18/25 16:51> Activity Level: Activity as Tolerated <Analy Juarez MD - Last Filed: 03/18/25 16:51> Activity as Tolerated <Essence Powell MD - Last Filed: 03/17/25 22:22> Discharge Diet: Regular <Analy Juarez MD - Last Filed: 03/18/25 16:51> Regular <Essence Powell MD - Last Filed: 03/17/25 22:22> Prescriptions: No Action albuterol sulfate 90 mcg/actuation HFA aerosol inhaler 2 puff inhalation PRN Eliquis 5 mg tablet 5 mg PO BID Certavite-Antioxidant 18-400 mg-mcg tablet PO Patient Comments: TAKE 1 TABLET BY MOUTH ONCE DAILY cholecalciferol (vitamin D3) 125 mcg (5,000 unit) tablet 5,000 unit PO QDAY Patient Comments: TAKE 1 TABLET BY MOUTH ONCE DAILY citalopram 40 mg tablet 40 mg PO QDAY fluticasone propion-salmeterol [Advair Diskus] 250-50 mcg/dose blister with device inhalation PRN Patient Comments: INHALE 1 DOSE BY MOUTH TWICE DAILY levetiracetam 750 mg tablet 1,500 mg PO Q12H Patient Comments: TAKE 2 TABLETS BY MOUTH TWICE DAILY DO NOT CRUSH lisinopril-hydrochlorothiazide 20-12.5 mg tablet 1 tab PO QDAY Patient Comments: TAKE 1 TABLET BY MOUTH ONCE DAILY metformin 500 mg tablet extended release 24 hr 1,000 mg PO QDAY nitroglycerin 0.4 mg tablet, sublingual 0.4 mg sublingual Q5M PRN Rx Instructions: do not exceed 3 doses per episode cyclobenzaprine 10 mg tablet 10 mg PO 3XD ciclopirox 8 % solution topical QPM metoprolol succinate 25 mg tablet extended release 24 hr 25 mg PO DAILY hydromorphone 4 mg tablet PO rosuvastatin 20 mg tablet 20 mg PO QPM Wegovy 2.4 mg/0.75 mL pen injector 2.4 mg subcut <Analy Juarez MD - Last Filed: 03/18/25 16:51> Follow Up/Referrals: Harvey Ely, [facility] [Primary Care Provider, Family Practice] <Analy Juarez MD - Last Filed: 03/18/25 16:51> Stand Alone Forms: MyHealth Info Instructions <Analy Juraez MD - Last Filed: 03/18/25 16:51>
--- NOTE | 2025-03-17 19:18 | CRLHL7_ITS ---
For Patients: As a result of the Century Cures Act, medical imaging exams and procedure reports are released immediately into your electronic medical record. You may view this report before your referring provider. If you have questions, please contact your health care provider. CT ANGIOGRAM HEAD DATE: 03/17/2025 CLINICAL HISTORY: Patient with focal neurological deficits. TECHNIQUE: Standard helical CT image acquisition through the intracranial circulation following intravenous administration of contrast material with bolus tracking. 2D and 3D MIP images for post-processing were performed and interpreted on an independent workstation and 3D images were permanently archived. COMPARISON: CT same day. FINDINGS: There is no proximal intracranial large vessel occlusion. There is no intracranial aneurysm. The right internal carotid artery is normal. The right middle cerebral artery and its branches are normal. The right anterior cerebral artery and its branches are normal. The left internal carotid artery is normal. The left middle cerebral artery and its branches are normal. The left anterior cerebral artery and its branches are normal. The anterior communicating artery is well visualized and appears normal. The right vertebral artery and PICA are normal. The left vertebral artery and PICA are normal. The vertebral arteries are codominant. The basilar artery is patent and appears normal. The right posterior cerebral artery is normal. The left posterior cerebral artery is normal. The visualized venous structures are patent. IMPRESSION: Patent proximal intracranial vasculature without intracranial aneurysms. Please note that all CT scans at this facility use dose modulation, iterative reconstruction, and/or weight-based dosing when appropriate to reduce radiation dose to as low as reasonably achievable. Dictated by: Emigdio Velasquez MD @ 03/17/2025 22:09:26 (Electronically Signed)
--- NOTE | 2025-03-17 19:18 | CRLHL7_ITS ---
For Patients: As a result of the Century Cures Act, medical imaging exams and procedure reports are released immediately into your electronic medical record. You may view this report before your referring provider. If you have questions, please contact your health care provider. TECHNIQUE: Multiplanar CT examination of the head was performed without the use of intravenous contrast. INDICATION: Disorientation. Dysphasia. COMPARISON: None. FINDINGS: No loss of montejo-white differentiation to suggest recent territorial infarct. No intracranial hemorrhage, abnormal extra-axial fluid collection, hydrocephalus or midline shift. The ventricles and cerebral sulci are normal in caliber. The basal cisterns are patent. The paranasal sinuses and mastoid air cells remain clear. Status post left lens removal. The orbits and calvarium are unremarkable. The cerebellar tonsils are normal position. IMPRESSION: No acute intracranial findings. Please note that all CT scans at this facility use dose modulation, iterative reconstruction, and/or weight-based dosing when appropriate to reduce radiation dose to as low as reasonably achievable. Dictated by Fabio Rahman MD @ 03/17/2025 8:23:54 PM (Electronically Signed)
--- NOTE | 2025-03-17 19:18 | CRLHL7_ITS ---
For Patients: As a result of the Century Cures Act, medical imaging exams and procedure reports are released immediately into your electronic medical record. You may view this report before your referring provider. If you have questions, please contact your health care provider. CT ANGIOGRAM NECK DATE: 03/17/2025 CLINICAL HISTORY: Patient with focal neurological deficits. TECHNIQUE: Standard helical CT image acquisition of the neck up to the skull base after bolus intravenous contrast enhancement. 2D and 3D MIP images for post-processing were performed and interpreted on an independent workstation and 3D images were permanently archived. COMPARISON: CT same day. FINDINGS: The origins of the great vessels from the aortic arch are patent. The origin of the right vertebral artery is patent. The origin of the left vertebral artery is patent. The common carotid arteries are patent. There is plaque without stenosis at the origin of the right internal carotid artery. There is plaque without stenosis at the origin of the left internal carotid artery. The rest of the cervical segments of the internal carotid arteries are patent up to the skull base, following a retropharyngeal course. The right vertebral artery is dominant. The cervical segments of the vertebral arteries are patent up to the skull base. The visualized lung apices are unremarkable. The thyroid gland is unremarkable. The soft tissues of the neck are unremarkable. There are degenerative changes in the cervical spine. IMPRESSION: Patent cervical vasculature. Please note that all CT scans at this facility use dose modulation, iterative reconstruction, and/or weight-based dosing when appropriate to reduce radiation dose to as low as reasonably achievable. Dictated by: Emigdio Velasquez MD @ 03/17/2025 22:07:28 (Electronically Signed)
[2025-03-17 20:25] LABS: Lactate* 0.9 mmol/L (0.5-1.9)
[2025-03-17 20:27] LABS: Basophils Absolute Auto 0.03 K/uL (0.00-0.30); Basophils Percent Auto 0.3 % (0.0-3.0); Eosinophils Absolute Auto 0.33 K/uL (0.00-0.50); Eosinophils Percent Auto 3.5 % (0.0-7.0); Hematocrit 31.2 % (33.0-51.0); Immature Granulocytes Abs Auto 0.02 K/uL (0.00-0.30); Immature Granulocytes Pct Auto 0.2 %; Lymphocytes Absolute Auto 2.55 K/uL (0.90-2.90); Lymphocytes Percent Auto 27.1 % (20-44); Mean Corpuscular HGB Conc 32 gm/dL (32-36); Mean Corpuscular Hemoglobin 28 pg (26-34); Mean Corpuscular Volume 86 fL (80-100); Monocytes Percent Auto 9.9 % (0.0-11.0); Neutrophils Absolute Auto 5.56 K/uL (1.7-7.0); Platelet Count* 236 K/uL (140-440); RDW Coefficient of Variation % 12.7 % (11.5-15.5); Red Blood Count 3.61 m/uL (4.00-5.20); White Blood Count* 9.42 K/uL (4.50-11.00)
[2025-03-17 20:28] VITALS: BP 141/85; PULSE 79; RESP 18; TEMP 36.6; O2SAT 97
[2025-03-17 20:36] LABS: Slide Review Reflex No
[2025-03-17 20:47] LABS: Albumin* 3.3 g/dL (3.3-5.0); Chloride* 99 mmol/L (96-114); Potassium* 3.5 mmol/L (3.6-5.1); Sodium* 133 mmol/L (135-149)
[2025-03-17 20:49] LABS: Blood Urea Nitrogen* 16 mg/dL (7-30); Creatinine* 0.7 mg/dL (0.5-1.5); Est. Creatinine Clearance* 49.12; Estimated Glomerular Filt Rate 95 ml/min
[2025-03-17 20:50] LABS: Alanine Aminotransferase* 21 U/L (4-35); Alkaline Phosphatase* 88 U/L (40-150); Anion Gap 5 mEq/L (7-15); Aspartate Amino Transferase* 34 U/L (12-35); Bilirubin Total* 0.5 mg/dL (0.1-1.5); Calcium* 8.6 mg/dL (8.4-10.6); Carbon Dioxide* 29 mmol/L (20-32); Glucose* 100 mg/dL (60-115); Magnesium* 2.2 mg/dL (1.5-2.6); Total Protein* 6.2 g/dL (6.0-8.3)
[2025-03-17 21:02] LABS: Troponin I* < 0.01 ng/mL (0.01-0.04)
== END 2025-03-17 22:32 | disposition home or self-care (01) ==
PROVIDERS: Family Medicine; Emergency Provider Family Medicine; PCP Physician Assistant Medical
DX: R47.89 Other speech disturbances (principal); T50.905A Adverse effect of unspecified drugs, medicaments and biological substances, initial encounter; G40.909 Epilepsy, unspecified, not intractable, without status epilepticus; Z79.01 Long term (current) use of anticoagulants
CPT/HCPCS: 36415; 70450; 70496; 70498; 80053; 83605; 83735; 84484; 85025; 99284; 99285; Q9967

== ENCOUNTER 2025-03-25 13:39 | Observation (INO) | payer OTHER, SELFPAY ==
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
--- OUTSIDE RECORDS SUMMARY | 2022-11-24 06:30 | XMS_ITS | Continuity of Care Document ---
Author Organization [facility] enter Address [address] [place] [address] Phone Care Team Providers Care Heating Element Repairer Name Role Phone [facility] Unavailable Unava ilable Procedures Procedure Date Dest by neurolytic agt, genicular nv br w\guid FLUOROGUIDE FOR SPINE INJECT Pt doc no events on discharg Pt w/o preop order iv ab pro Inj anes agt/steroid; gen ne br,w/guidan ce Pt doc no events on discharg Pt w/o preop order iv ab pro Advance Directives Directive Yes / No Effective Date File Name No Information Encounters Encounter Description Practice Location Reason(s) For Visit Diagnoses Date Provider Providers Copied on Encounter [facility], [address] [place] [address], [id number], [place] tel:[phone] [facility] No Information 3 [facility]. [address] [place] [address], [id number], [place]. tel:[phone] Referring Provider: April Guallpa, [address] [facility] [place], [address] . tel:[phone] [facility], [address] [place] [address], [id number], tel:[phone] [facility] No Information [facility]. [address] [place] [address] [address] [facility] [address], [place], [place], [id number], [place]. tel:[phone] Referring Provider: April Guallpa, [address] [facility] [place], [address] . tel:[phone] Family History Family Member Type Diagnosis Age At Onset No Information Payers Payer name Insurance type Covered alliance party ID Emre martinez(s) Medicare MB [id number] [facility] MSC Plus Supplement [id number] Social History Type Description Quantity Date Captured Comments Sex Female Smoking Status No Information Chief Complaint And Reason For Visit No Information Reason For Referral Reason For Referral No Information History Of Present Illness Encounter Date Complaint History Of Prese nt Illness No Information Functional Status Date Functional Assessmen t No Information Instructions Date Instruction Additional Infor mation No Information Assessments Type Assessment Date No Information Patient Care Teams Name Effective Dates (start - stop) Status Members No Information
--- OUTSIDE RECORDS SUMMARY | 2022-11-24 06:30 | XMS_ITS | Continuity of Care Document ---
Author Organization [facility] sudeep Address [address] [place] [address] Phone Care Team Providers Care Yarder Operator Name Role Phone April Guallpa MD Unavailable [...] Imaging FLUOROGUIDE FOR SPINE INJECTION OFFICE/OUTPATIENT VISIT, [facility] Inj anes agt/steroid; narda salgado/adryan narayan Right Inj anes agt/steroid; narda salgado/adryan ce Right Drug Urine Toxology With Chromatography OFFICE/OUTPATIENT VISIT, [facility] Advance Directives Directive Yes / No Effective Date File Name No Information Encounters Encounter Description Practice Location Reason(s) For Visit Diagnoses Date Provider Providers Copied on Encounter [facility], [address] [facility] [place], [id number] , [place] tel:[phone] [facility] Pain in right knee 3 Ramu Chen. [address] [facility] [place] [place], [place], [id number] , [place]. tel:[phone] Referring Provider: Nate Lynn, [facility] [address] [facility], [place], [address]. tel:[phone] OFFICE/OUTPA TIENT VISIT, [facility] Telehealth [facility], [address] [place] [address] [place], [id number] , [place] tel: [phone] [facility] [place] right knee pain (chief complaint) ObesityOther chronic painUnilateral primary osteoarthritis of right kneeRadiculopathy , lumbar region 3 Abdelrahman Sullivan. [address] [place] [address] [place], [id number] , [place]. tel: [phone] Referring Provider: Nate Bennett, [address] [place] [address], [address]. tel:[phone] [facility], [address] [place] [address], [id number] , [place] tel: [phone] [facility] Pain in right knee 3 Ramu Chen. [address] [place] [address] [place], [id number] , [place]. tel: [phone] [facility], [address] [place] [address] [place], [id number] , [place] tel: [phone] [facility] Pain in right knee 3 Ramu Chen. [address] [place] [address] [place], [place], [id number] , [place]. tel: [phone] Referring Provider: Nate Lynn, [facility] [address], [place], [address]. tel:[phone] [facility], [address] [place] [address] [place], [id number] , [place] tel: [phone] [facility] Pain in right knee 2 Ramu Chen. [address] [place] [address] [place], [place], [id number] , [place]. tel: [phone] Referring Provider: Nate Lynn, [facility] [address], [place], [address]. [phone] [facility], [address] [place] [address] [place], [id number] , [place] tel:[phone] [facility] Unilateral primary osteoarthritis of right kneePain in right knee 2 Ramu April. [address] [place], [id number] , [place]. tel:[phone] [facility], [address] [facility] [address] [place], [place], [address] , [place] tel: [phone] [facility] [place] No Information 2 Will Nate. [address] [facility] [address] [place], [id number] , [place]. tel:[phone] OFFICE/OUTPA TIENT VISIT, NEW [facility], [address] [facility] [facility] [address] [place], [place], [id number] , [place] tel: [phone] [facility] [place] Right Knee Pain (chief complaint) Other chronic painObesityUnilat eral primary osteoarthritis of right kneeRadiculopathy , lumbar regionEncounter for screening for other disorder 2 Will Nate. [address] [facility] [address] [place], [place], [id number] , [place]. tel:[phone] Referring Provider: Nate Lynn, [facility] [address] [facility] [address], [place], [address]. tel:[phone] Family History Family Member Type Diagnosis Age At Onset No Information Payers Payer name Insurance type Covered alliance party ID Authoriza tion(s) Medicare [id number] [facility] MSC Plus Supplement [id number] Social History Type Description Quantity Date Captured Comments Sex Female Smoking Status No Information Chief Complaint And Reason For Visit No Information Reason For Referral Reason For Referral No Information Plan Of Treatment Date Type Action Status Goal Medication Recon ciliation. Due on due Goal Lipid panel. Due on 023 due Goal Weight. Due on d ue Goal Hepatitis C scre ening. Due on due Goal Review Allergy L [...] due Goal HPV. Due on due Goal Weight. Due on [...] due Goal CT-Colonography. Due on due Goal FIT. Due on due Goal PHQ-9. Due on du e Goal Unhealthy drug u se screening. Due on due Goal Weight. Due on d ue Goal Hepatitis C scre ening. Due on due Goal Tobacco Use. Due on due Goal CT-Colonography. Due on due Goal Height. Due on d ue Goal Update Social Hi story. Due on due Goal Medication Recon ciliation. Due on due Goal HPV. Due on due Goal Zoster vaccine ( ). Due on due Goal FIT-DNA. Due on [...] Medication Recon ciliation. Due on due Goal Hepatitis C scre [...] Date Complaint History Of Prese nt Illness right knee pain Duration: chroni c. It [...] the patient is ready for upcoming RFA. Right Knee Pain Onset: 2 months ago. [...] She was referred by Dr. La at [facility] for possible a genicular RF workup. Patient reports right knee pain began 2 months ago and that she has been evaluated at [facility] by Dr. Lynn. She has done [...]
--- OUTSIDE RECORDS SUMMARY | 2022-11-24 06:30 | XMS_ITS | Continuity of Care Document ---
Author Organization [facility] enter Address [address] [place] [address] Phone Care Team Providers Care Manager Bar Name Role Phone [facility] Unavailable Unava ilable Procedures Procedure Date Dest [...] Diagnoses Date Provider Providers Copied on Encounter [facility], [address] [place] [address], [id number], [place] tel:[phone] [facility] No Information 3 [facility]. [address] [place] [address], [id number], [place]. tel:[phone] Referring Provider: April Guallpa, [address] [facility] [place], [address] . tel:[phone] [facility], [address] [place] [address], [id number], tel:[phone] [facility] No Information [facility]. [address] [place] [address] 11 [facility] [address], [place], [place], [id number], [place]. tel:[phone] Referring Provider: April Guallpa, [address] [facility] [place], [address] . tel:[phone] Family History Family Member Type Diagnosis Age At Onset No Information Payers Payer name Insurance type Covered constitution party ID Emre martinez(s) Medicare MB [id number] [facility] MSC Plus Supplement [id number] Social History Type Description Quantity Date Captured [...]
--- OUTSIDE RECORDS SUMMARY | 2022-12-01 09:40 | XMS_ITS | Continuity of Care Document ---
Author Organization [facility] Address [address] [place] [address] Care Team Providers Care Executive Chairman Of The Board Name Role Phone Leonardo Jones CRNA Unavailable Unavailable Procedures Procedure Date ANESTH, NERVE BLOCK/INJ Advance Directives Directive Yes / No Effective Date File Name No Information Encounters Encounter Description Practice Location Reason(s) For Visit Diagnoses Date Provider Providers Copied on Encounter [facility], [address] [place], [place], [id number], [facility] No Information 3 Robert Patterson. [address] [place], [place], [id number] , . tel:[phone] Referring Provider: April Guallpa, [address] [place], [address] . tel:[phone] Family History Family Member Type Diagnosis Age At Onset No Information Payers Payer name Insurance type Covered alliance party ID Emre martinez(s) Medicare [id number] [facility] MSC Plus Supplement [id number] Social History Type Description Quantity Date Captured [...]
--- OUTSIDE RECORDS SUMMARY | 2022-12-01 09:40 | XMS_ITS | Continuity of Care Document ---
Author Organization [facility] Address [address] [place] [address] Care Team Providers Care Purification Director Name Role Phone Leonardo Jones CRNA Unavailable Unavailable Procedures Procedure Date ANESTH, NERVE BLOCK/INJ Advance Directives Directive Yes / No Effective Date File Name No Information Encounters Encounter Description Practice Location Reason(s) For Visit Diagnoses Date Provider Providers Copied on Encounter [facility], [address] [place], [place], [id number], [facility] No Information 3 Robert Patterson. [address] [place], [place], [id number] , . tel:[phone] Referring Provider: April Guallpa, [address] [place], [address] . tel:[phone] Family History Family Member Type Diagnosis Age At Onset No Information Payers Payer name Insurance type Covered libertarian ID Emre martinez(s) Medicare [id number] [facility] MSC Plus Supplement [id number] Social History Type Description Quantity Date Captured [...]
--- OUTSIDE RECORDS SUMMARY | 2024-05-31 10:35 | XMS_ITS | Continuity of Care Document ---
Author Organization [facility] Address [address] [address] [place] [address] Phone Care Team Providers Care Cloth Finishing Range Operator Chief Name Role Phone PatelAlexey clarke MD Unavailable Unavailable Advance Directives Directive Yes / No Effective Date File Name No Information Encounters Encounter Description Practice Location Reason(s) For Visit Diagnoses Date Provider Providers Copied on Encounter [facility], [address] [address], [place], [place], [id number], [place] tel:[phone] [facility] No Information Patelvince Blackburn. [address] [facility], [facility] [address], [place], [place], [id number], [place]. tel:[phone] Family History Family Member Type Diagnosis Age [...]
--- OUTSIDE RECORDS SUMMARY | 2024-05-31 10:35 | XMS_ITS | Continuity of Care Document ---
Author Organization [facility] Address [address] [address] [place] [address] Phone Care Team Providers Care Speech Writer Name Role Phone PatelAlexey clarke MD Unavailable Unavailable Advance Directives Directive Yes / No Effective Date File Name No Information Encounters Encounter Description Practice Location Reason(s) For Visit Diagnoses Date Provider Providers Copied on Encounter [facility], [address] [address], [place], [place], [id number], [place] tel:[phone] [facility] No Information Patelvince Blackburn. [address] [facility], [facility] [address], [place], [place], [id number], [place]. tel:[phone] Family History Family Member Type Diagnosis Age At Onset No Information Payers Payer name Insurance type Covered republican ID Authoriza tion(s) No Information Social History [...]
--- OUTSIDE RECORDS SUMMARY | 2025-02-19 10:49 | XMS_ITS | Encounter Summary ---
Author Organization [facility] Address [address] [place] [address] Care Team Providers Care Buggy Ladle Tender Name Role Phone Harvey Ely PA-C Primary Care Provider [phone] Reason for Visit * Reason Comments Back Pain Leg Pain Encounter Details Date Type Department Care Team (Late st Contact Info) Description 02/19/2025 10:49 AM CDT - 02/19/2025 12:02 PM CDT Emergency [facility] Emergency Dept [address] [place] [address] [phone] Vishnu Ambriz MD [facility] [address] [place], [place] [phone] Lumbar radiculopathy Discharge Disposition: Home or Self Care Social History Tobacco Use Types Packs/Day Years Used Date Smoking Tobacco: Never Assessed Adolescent Education Answer Date Record ed Getting School Help Needed Not on file 07/08 Comments No Sex and Gender Information Value Date Recorded Sex Assigned at Not on file Legal Sex Female 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 Additional Documentation None Medical Decision Making / Diagnosis [facility] Diagnoses: None MIPS None MDM Amber Childers [...] thigh/sciatic. Pt due to have procedure at [facility] in 3 wks for back. Pt was [...] RN) documented in this encounter Care Teams Buggy Ladle Tender Relationship Specialty Start Date End Date Harvey Ely PA-C [facility] [id number] [place] [phone] PCP - General Family Medicine 02/19/25 documented as of this encounter
[2025-03-25] VITALS (21 sets, daily range): BP systolic 110–158; BP diastolic 74–104; PULSE 92–124; RESP 12–42; TEMP 36.9–38.1; O2SAT 93–100; BMI 39.9
--- OUTSIDE RECORDS SUMMARY | 2025-03-25 13:42 | XMS_ITS | Clinical Summary ---
Author Organization [facility] Address [address] [address] Phone Care Team Providers Care Electronic Prepress System Operator Name Role Phone Unavailable Primary Care Provider [...] radiculopathy 07/27/2015 Coronary artery disease invo lving emmonak coronary artery without angina pectoris 02/03/2015 Generalized [...] Pain Visit: 06/29/2010 back pain Preferred Pharmacy: [facility] [place] Comments: none Other convulsions 05/17/2010 11/21/2017 Overview [...] required to resolve. Screening exclusions include dialysis, [facility] care residence, antibiotics within the past 7 days, chronic wounds or invasive devices, & recurrent MRSA infections. Please contact Infection Prevention for your facility if questions. Coronary Atherosclerosis of [place] Coronary Artery, stents x 4, [place] 2006, 2008, hypertension 02/16/2010 02/03/2015 Overview (02/04/2012): [...] DEXA, BONE DENSITY STUDY, 1 OR 11/03/2004 [facility] EXPLOR MAXILL SINUS,INTRANASAL 10/16/2004 - 11/15/2004 Bilateral [...] lens implant; Surgeon: Miguel Toussaint MD; Location: [facility] Medical devices from this surgery are in the Medical Devices section. Medical History Medical History Date Comments Reactive airway disease 02/16/2010 Coronary atherosclerosis of [place] coronary artery 02/16/2010 S/p stent placement Other and unspecified hyperlipidemia 02/16/2010 Contact with and suspected e xposure to potentially hazardous chemicals 04/13/2009 Exposure to polychl oroprene solvent, [place] bonding adhesive. Obesity, unspecified 04/14/2009 Acute myocardial [...] on file Legal Sex Female 9:28 PM AIRPORT REPRESENTATIVE Gender Identity Not on file Sexual Orientation [...] 36.7 C (98 F) 11/26/2019 10:16 AM AIRPORT REPRESENTATIVE Respiratory Rate 18 12/10/2019 10:3 4 AM AIRPORT REPRESENTATIVE Oxygen Saturation 97% 07/31/2020 12: 35 PM CDT Inhaled Oxygen Concentration - - Weight 127.5 kg (281 lb 1.4 oz) 020 11:08 AM AIRPORT REPRESENTATIVE Height 165.1 cm (5' 5) 11/26/2019 10:1 6 AM AIRPORT REPRESENTATIVE Body Mass Index 46.06 11/06/2019 11:08 AM AIRPORT REPRESENTATIVE Plan of Treatment Health Maintenance Due Date [...] this topic Medical Devices Implanted Type Area Development Technician Device Identifier Shelf Expiration Date Model / Serial / Lot Sling Pelvic T-Sling - [id number] Implanted:Qty: 1 on [facility]14/[facility] N/A: Bladder [employer]OPLAST [place]ILLA. [id number] / N/A / 0827 Lens Iol [id number] 16.0d Acrysof Iq [id number] - [id number] Implanted:Qty: 1 on 11/22/2018 by Miguel Toussaint MD at [facility] IOR Left: Eye ENZO 05/15/2023 [id number] / [id number] / * Procedures Procedure Name Priority Date/Time Associated Diagnosis Comments MAMM SABRINA SCREEN DIGITAL BILAT Routine 08/28/2019 1:52 PM AIRPORT REPRESENTATIVE Visit for screening mammogram LIPID PROFILE Routine 07/22/2019 8:17 AM CDT Coronary artery disease involving [place] coronary artery without angina pectoris, unspecified whether emmon[place] or transplanted heart from Last 3 Months or Most Recently Relevant to Health Maintenance Results * MAMM SABRINA SCREEN DIGITAL BILAT (08/28/2019 1:52 PM AIRPORT REPRESENTATIVE) Anatomical Region Laterality Modality Breast Bilateral Mammography 08/28/2019 1:52 PM AIRPORT REPRESENTATIVE Narrative 08/28/2019 8:44 PM AIRPORT REPRESENTATIVE This document is currently in Final Status [...] - 200 mg/dL 07/22/2019 11:54 AM CDT [facility] HDL Cholesterol 39(L) 40 - 60 mg/dL 07/22/2019 11:54 AM T [facility] Triglycerides 172 10 - 200 mg/dL 07/22/2019 11:54 AM CDT [facility] LDL Cholesterol, Calculated 79 mg/dL 07/22/2019 11:54 AM CDT [facility] Blood specimen (specimen) BLOOD SPECIMEN / Unknown Venipuncture / Unknown 07/22/2019 8:17 AM CDT 07/22/2019 8:17 AM CDT Narrative [facility] - 07/22/2019 11:54 AM CDT [...] ORDERABLES ABN Final Result Performing Organization Address City/State/[facility] Co de Phone Number [facility] [address] [place] [address] from Last 3 Months or Most Recently Relevant to Health Maintenance Insurance MEDICARE PART A & B [place] [facility] MEDICARE PART A & B MEDICARE PART A & B * Guarantor: DARYA ESPINOSA Account Type Relation to Patient Date of Phone Billing Address [employer] [address] [place] [address] Advance Directives For more information, please contact: [phone] * Full Code (Latest Code Status on File) Date Activated Date Inactivated Comments 05/03/2013 12:23 AM 05/03/2013 7:19 PM * Full Code Date Activated Date Inactivated Comments 01/27/2013 3:22 AM 01/29/2013 4:19 PM
--- OUTSIDE RECORDS SUMMARY | 2025-03-25 13:42 | XMS_ITS | Clinical Summary ---
Author Organization [facility] Address [address] [place] [address] Care Team Providers Care Mower Operator Name Role Phone Harvey Ely PA-C Primary Care Provider [phone] Source Comments You are receiving this document as you are listed as the primary care provider,follow-up provider, or the patient has been referred to you for consultation.This is in compliance with the Medicare and[facility] Cent[facility] EHR Incentive Program,which states Providers who transition their patient to another setting of careor provider of care or refers their patient to another provider of care shouldprovide summary care record for each transition of care or referral. [place] Allergies Active Allergy Reactions Criticality Noted Date [...] 36.6 C (97.8 F) 10/18/2023 12:25 PM [employer]ARD[employer] CAR Respiratory Rate - - Oxygen Saturation - - Inhaled Oxygen Concentration - - Weight 123.9 kg (273 lb 0.6 oz) 11/06/2023 1:28 PM [employer] Height 166.4 cm (5' 5.5) 11/06/2023 1:28 PM [employer]ARD[employer] Body Mass Index 44.75 11/06/2023 1:28 PM [employer] Plan of Treatment Health Maintenance Due Date [...] to complete this topic Insurance [id number] [place] [address] [facility] Care Teams Mower Operator Relationship Specialty Start Date End Date Harvey Ely PARafaC [address] [place], [place] [phone] PCP - General Physician Mixer Crane Operator 10/23/23
--- OUTSIDE RECORDS SUMMARY | 2025-03-25 13:42 | XMS_ITS | Encounter Summary ---
Author Organization [facility] Address [address] [address] Phone Care Team Providers Care Studio Model Name Role Phone Gabby Aaron MD Primary Care Provider [phone] Hugh Argueta WAREHOUSE RECEIVING SUPERVISOR, GROUP DIRECTOR Unavailable [phone] Sergio Galdamez WAREHOUSE RECEIVING SUPERVISOR, GROUP DIRECTOR Unavailable + Heidy Mulligan Unavailable Unavailable Encounter Details Date Type Department Care Team (Late st Contact Info) Description 07/29/2014 Orders Only [facility] [address] [place], [place] [id number] Rose Paniagua Obesity, Class II, BMI 35.0-39.9, [...] on file Legal Sex Female 9:28 PM NATIONAL ACCOUNT EXECUTIVE Gender Identity Not on file Sexual Orientation [...] unspecified documented in this encounter Care Teams Studio Model Relationship Specialty Start Date End Date Gabby Aaron MD [address] [place] [address] PCP - General Family Medicine 06/29/12 11/20/17 Hugh Argueta APRN, GROUP DIRECTOR [address] [place] [address] PCP - PC Team Family Medicine 07/31/15 02/06/18 Sergio Galdamez APRN, GROUP DIRECTOR [address] [place] [phone] PCP - PC Team Family Medicine 02/07/18 03/21/19 Heidy Mulligan Community Health Worker 07/24/19 12/07/20 documented as of this encounter
--- OUTSIDE RECORDS SUMMARY | 2025-03-25 13:43 | XMS_ITS | Encounter Summary ---
Author Organization [facility] Address [address] [place] [address] Care Team Providers Care Molded Goods Spot Picker Name Role Phone Harvey Ely PA-C Primary Care Provider [phone] Encounter Details Date Type Department Care Team (Latest Contact Info) Description 02/19/2025 Travel Social History Tobacco Use Types Packs/Day Years Used Date Smoking Tobacco: Never Assessed Adolescent Education Answer Date Record ed Getting School Help Needed Not on file 07/08 Comments No Sex and Gender Information Value Date Recorded Sex Assigned at Not on file Legal Sex Female 10:40 AM TRIAGE REGISTERED NURSE Gender Identity Not on file Sexual Orientation Not on file documented as of this encounter Plan of Treatment Not on file documented as of this encounter Visit Diagnoses Not on filedocumented in this encounter Care Teams Molded Goods Spot Picker Relationship Specialty Start Date End Date Harvey Ely PA-C [facility] [address] [place] [address] PCP - General Family Medicine 02/19/25 documented as of this encounter
--- OUTSIDE RECORDS SUMMARY | 2025-03-25 13:43 | XMS_ITS | Clinical Summary ---
Author Organization [employer] [facility] s & [facility] Address [address] [place] [address] Care Team Providers Care Tactical Debriefer Name Role Phone Harvey Ely Primary Care Provider [phone] Jose Medina Unavailable [phone] Aleksandar Lopez MD Unavailable [phone] Elza Rubi RN Unavailable [phone] Unavailable [phone] Johanny Baires Unavailable [phone] Allergies Active Allergy Reactions Criticality Noted Date [...] // Susie Oh RN, Bariatric Nurse , [facility] Weight Management 11/01/2022. Penicillins Hives High [...] mg sublingual tabletIndications :Coronary artery disease involving [place] coronary artery without angina pectoris, unspecified whether [place] or transplanted heart Place 1 Tablet (0.4 [...] Multivitamin Cmb No.21-Iron-FA (Certavite-Antiox idant) 18-400 mg-mcg tabIndications:[facility] health maintenance,Histo ry of gastric bypass [...] 5 mg tabletIndications :Coronary artery disease involving [place] coronary artery without angina pectoris, unspecified whether [place] or transplanted heart Take 1 tablet by [...] 5 mg tabletIndications :Coronary artery disease involving [place] coronary artery without angina pectoris, unspecified whether [place] or transplanted heart Take 1 tablet by [...] mg Sustained-Release tabletIndications :Coronary artery disease involving [place] coronary artery without angina pectoris, unspecified whether [place] or transplanted heart Take 1 Tablet (25 mg) by mouth once daily. 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 11/22/2013 Atrial fibrillation with RVR 05/03/2013 Refractory migraine without aura 02/15/2013 Degeneration of lumbar or lumbosacral interverte bral disc 02/10/2012 Metabolic syndrome 09/15/2011 Overview (09/30/2020): IMO Update 07/26 Adjustment disorder with depressed mood 02/17/20 Gastroesophageal reflux disease Dysphagia Resolved Problems Problem Noted Date Diagnosed Date Resolved Date Morbid obesity with BMI of 50.0-59.9, adult 10/24/2022 11/05/2024 Morbid obesity with BMI of 45.0-49.9, adult 02/16/2021 10/24/2022 Morbid obesity with BMI of 40.0-44.9, adult 08/25/2011 10/24/2022 Encounters Date Type Department Care Team Description 03/17/2025 Orders Only [facility] Scanner 1 scan: (1-Ord) [facility], HEAD/BRAIN WO CON, 03/17/2025 03/17/2025 Orders Only [facility] Scanner 1 scan: (1-Ord) [facility], NECK, 03/17/2025 03/17/2025 Orders Only [facility] Scanner 1 scan: (1-Ord) [facility], HEAD, 03/17/2025 03/17/2025 Patient Outreach [facility] [address] [place] [address] Amisha Trivedi, RN Primary RN Care Management; Hospital F/U (Spinal stenosis, lumbosacral region, DOD 03/16/2025, LACE+25) 03/16/[address] [address] Ramone Cain PA 03/13/2025 7:34 AM CDT Anesthesia Event [address] [address] Antonio Peña MD Laberge, Thomas Patrick, MD 03/13/2025 7:10 AM CDT - 03/13/2025 11:23 AM CDT Surgery [address] [address] Shawn Cm MD ALIF-ANTERIOR LUMBAR INTERBODY FUSION L5 SL, PSF-POSTERIOR SPINE FUSION L5-S1, INSTRUMENTATION AND BONE GRAFT 03/13/2025 5:06 AM CDT - 03/16/2025 11:55 AM CDT Hospital Encounter [address] [address] Shawn Cm MD [facility], U Hospitalist Svc Postoperative pain (Primary Dx) Discharge Disposition: Home Self Care 03/12/2025 Travel 02/25/2025 Refill [facility] [address] [place] [address] Madeleine Loyd PA Refill Request (Eliquis) 02/25/[address] [address] Harvey Ely PA Refill Request (Citalopram) 02/14/[address] [address] Harvey Ely PA Refill Request (Hydromorphone ) 02/13/2025 3:00 PM CDT Office Visit [address] [address] Harvey Ely PA Pre-Op Exam; Pain (Severe pain surgeon will not give her pain meds.) 02/13/2025 Travel 01/10/[address] [address] Harvey Ely PA Prior Authorization (semaglutide, weight loss, (Wegovy) 2.4 mg/0.75 mL subcutaneous pen APPROVED 01/13/25 - 01/13/26) 01/09/[address] [address] Harvey Ely PA Refill Request (Rosuvastatin) 01/09/[address] [address] Harvey Ely PA Medication Management (wegovy) 12/31/2024 2:00 PM CDT Office Visit [facility] [address] [place] [address] Ramon Beth OD Eye Exam (CEE) 12/30/2024 Travel from Last 3 Months Immunizations Immunization Administration Dates Next Due COVID-19 VACCINE SPIKEVAX (M ODERNA 50MCG/0.5ML) 12YO+ PFS 07/22/2024 COVID-19 vaccine (Amulyte NTech 30mcg/0.3mL) 12YO+ MADISON-SUCROSE PF, MDV 04/29/2022,12/09/2021 COVID-19 vaccine (Amulyte NTech 30mcg/0.3mL) PF, MDV 02/16/2021,01/26/2021 Hepatitis B [...] on file Legal Sex Female 6:12 AM PUT IN BEAT ADJUSTER Gender Identity Not on file Sexual Orientation [...] Comments Hepatitis C screening for ag e 18-04/24/1973 RSV vaccine for adults or (1 - [...] history exists Medical Devices Implanted Type Area Frame Table Operator Helper Device Identifier Shelf Expiration Date Model / Serial / Lot Putty Easypack 2.5cc Magnetos - [id number] Implanted:Qty : 1 on 03/13/2025 by Shawn Cm MD at [facility] N/A: Lumbar Vertebrae [employer] 09/15/2029 [id number] / / [id number] Yevgeniy Lmbr 5.5x40mm Capped - [id number] Implanted:Qty : 1 on 03/13/2025 by Shawn Cm MD at [facility] N/A: Lumbar Vertebrae Medtronic Spine/Ortho [id number] / / Yevgeniy Lmbr 5.5x35mm Capped - [id number] Implanted:Qty : 1 on 03/13/2025 by Shawn Cm MD at [facility] N/A: Lumbar Vertebrae Medtronic Spine/Ortho [id number] / / Spacer Lordotic Lg [id number] 7 Deg Nanolock Tas - [id number] Implanted:Qty : 1 on 03/13/2025 by Shawn Cm MD at [facility] N/A: Lumbar Vertebrae Medtronic Spine/Ortho 03/24/2025 [id number] / / [id number] Bone 1-4mm 30cc Medtronic Chips Canclls Freeze Dried - [id number] Implanted:Qty : 1 on 03/13/2025 by Shawn Cm MD at [facility] N/A: Lumbar Vertebrae Medtronic Spine/Ortho [id number] / [id number] / Description:Scanner in OR 17 not working Pur: [id number] Bone 1-4mm 30cc Medtronic Chips Canclls Freeze Dried - [id number] Implanted:Qty : 1 on 03/13/2025 by Shawn Cm MD at [facility] N/A: Lumbar Vertebrae Medtronic Spine/Ortho 01/24/2029 [id number] / [id number] / Description:Scanner is not w orking in OR 17 Pur:[id number] Screw Spinal 5.5x20mm Titnm - [id number] Implanted:Qty : 3 on 03/13/2025 by Shawn Cm MD at [facility] N/A: Lumbar Vertebrae Medtronic Spine/Ortho [id number] / / Set Screw 5.5/6.0 Solera Voyager - [id number] Implanted:Qty : 4 on 03/13/2025 by Shawn Cm MD at [facility] N/A: Lumbar Vertebrae Medtronic Spine/Ortho [id number] / / Screw Spinal 6.5x50mm Voyager Mas - [id number] Implanted:Qty : 2 on 03/13/2025 by Shawn Cm MD at [facility] N/A: Lumbar Vertebrae Medtronic Spine/Ortho [id number] / / Screw Lmbr 6.5x45 Voyager Mas - [id number] Implanted:Qty : 2 on 03/13/2025 by Shawn Cm MD at [facility] N/A: Lumbar Vertebrae Medtronic Spine/Ortho [id number] / / Explanted Type Area Frame Table Operator Helper Device Identifier Shelf Expiration Date Model / Serial / Lot Pin Spine 100mm Perc Reference - [id number] Explanted:Qty : 1 on 03/13/2025 by Shawn Cm MD at [facility] N/A: Lumbar Vertebrae Medtronic [employer] 12/02/2027 [id number] / / [id number] Procedures Procedure Name Priority Date/Time Associated Diagnosis Comments SCAN-CT INTERPRETATION 03/17/2025 12:00 AM CDT SCAN-CT INTERPRETATION 03/17/2025 12:00 AM CDT SCAN-CT INTERPRETATION 03/17/2025 12:00 AM CDT SCAN-CARDIAC STRIP 03/16/2025 9:59 AM CDT SCAN-CARDIAC [...] HR Routine 03/13/2025 12:15 PM CDT XR O-ARM FLUORO 31-120 MINUTES Routine 03/13/2025 11:26 AM CDT XR SPINE 1 VIEW PORTABLE [...] LUMBOSACRAL Case Notes 210 MINS-0730VOYAGER 5.5/6.0 (PERC)HARSHIL Candelario Medtronic MP addsTitan instTitan trails Harshil rios Vomarcelager x4 confirmed w/Rigoberto Rodriguez [phone] 03/04 JTAUTOGRAFTALLOGRAFT CANELLOUS (FROZEN, FREEZE DRIED)MAGNETO'S (SYNTHETIC)C-ARMO ARM AND STEALTH- email sent to confirm 730 w/Naeem/ProNAv-confirmed by Naeem/email 01/21-AWCELL SAVER- confirmed 0730 w/Abelardo #[id number] 01/20 AW// CELL SAVER CONFIRMED WITH ELIZABETH 03/12 VPQUADRANTJACKSON TABLEPORTABLE XRAYFLIPINSERT MAYES CATHETER Special Needs HT [...] Harshil rios Voyager x4 confirmed w/Rigoberto Rodriguez [phone] 03/04 JTAUTOGRAFTALLOGRAFT CANELLOUS (FROZEN, FREEZE DRIED)MAGNETO'S (SYNTHETIC)C-ARMO ARM AND STEALTH- email sent to confirm 730 w/Naeem/ProNAv-confirmed by Naeem/email 01/21-AWCELL SAVER- confirmed 0730 w/Abelardo #[id number] 01/20 AW// CELL SAVER CONFIRMED WITH ELIZABETH 03/12 VPQUHAMIDACKSON TABLEPORTABLE XRAYFLIPINSERT MAYES CATHETER Special Needs HT 5'5 WT 109.8 kg BMI 40.27Eliquis last dose 03/06Wegovy last dose 02/27OSA no tx Epilepsy MDRO message sent to IP ordered precautions TYPE & SCREEN Preop 03/13/2025 6:02 AM CDT SCAN-CARDIAC STRIP 03/13/2025 12:00 AM CDT SCAN-OPERATIVE/PROC EDURE REPORT 03/13/2025 12:00 AM CDT CBC WITH AUTO DIFFERENTIAL Routine 02/13/2025 3:57 PM CDT Pre-op examination BASIC METABOLIC PANEL Routine 02/13/2025 3:57 PM CDT Pre-op examination XR MAMMO SABRINA BILAT SCREEN Routine 09/26/2024 2:16 PM PUT IN BEAT ADJUSTER Encounter for screening mammogram for malignant neoplasm of breast LIPID PANEL W REFLEX MEASURED LDL Routine 09/18/2024 10:19 AM PUT IN BEAT ADJUSTER Hyperlipidemia with target LDL less than 70 XR DXA BONE DENSITY 2 SITES AXIAL Routine 01/23/2023 2:32 PM CDT Menopause SCAN-COLONOSCOPY 08/15/2014 12:00 AM CDT from Last 3 Months or Most Recently Relevant to Health Maintenance Results * SCAN-CT INTERPRETATION (03/17/2025 12:00 AM CDT) Only the most recent of3 resultswithin the time period is included. Anatomical Region Laterality Modality Other us Scanner OTHER Final Result * SCAN-CARDIAC STRIP (03/16/2025 9:59 AM CDT) us Scanner OTHER Final Result * SCAN-CARDIAC STRIP (03/15/2025 9:56 AM CDT) us Scanner OTHER Final Result * (ABNORMAL) GLUCOSE METER (03/15/2025 8:41 AM CDT) [facility] GLUCOSE METER 163(H) 65 - 100 mg/dL 03/15/2025 8:46 AM CDT [facility] Blood BLOOD SPECIMEN / Unknown 03/15/2025 8:41 AM CDT 03/15/2025 8:46 AM CDT us Shawn Cm MD CHEMISTRY Final Result [facility] SENDOUT [place] [address] [phone] [place] [address] * (ABNORMAL) Hemoglobin - In AM (03/15/2025 7:53 AM CDT) HEMOGLOBIN 11.7(L) 12.0 - 16.0 g/dL 03/15/2025 8:02 AM CDT [facility] MCV 87 80 - 100 fL 03/15/2025 8:02 AM CDT [facility] Blood BLOOD SPECIMEN / Unknown Venipuncture / Unknown 03/15/2025 7:53 AM CDT 03/15/2025 7:58 AM CDT Narrative [facility] - 03/15/2025 8:02 AM CDT Call surgeon if Hemoglobin is less than 9. us Ramone CORTES HEMATOLOGY Final Re sult [facility] SENDOUT [address] [phone] [place] [address] * XR SPINE LUMBAR 2 VIEWS (03/14/2025 [...] EXAM: XR SPINE LUMBAR 2 VIEWS LOCATION: [facility] MEDICAL IMAGING DATE: 03/14/2025 INDICATION: Postop evaluation. [...] EXAM: XR SPINE LUMBAR 2 VIEWS LOCATION: [facility] MEDICAL IMAGING DATE: 03/14/2025 INDICATION: Postop evaluation. [...] - 11.0 thou/cu mm 03/14/2025 7:42 AM [facility] RED BLOOD COUNT 4.38 4.00 - 5.20 mil/cu mm 03/14/2025 7:42 AM [facility] HEMOGLOBIN 11.9(L) 12.0 - 16.0 g/dL 03/14/2025 7:42 AM [facility] HEMATOCRIT 38.4 33.0 - 51.0 % 03/14/2025 7:42 AM [facility] MCV 88 80 - 100 fL 03/14/2025 7:42 AM [facility] MCH 27.2 26.0 - 34.0 pg 03/14/2025 7:42 AM [facility] MCHC 31.0(L) 32.0 - 36.0 g/dL 03/14/2025 7:42 AM [facility] RDW 12.9 11.5 - 15.5 % 03/14/2025 7:42 AM [facility] PLATELET COUNT 243 140 - 440 thou/cu mm 03/14/2025 7:42 AM [facility] MPV 10.9 6.5 - 11.0 fL 03/14/2025 7:42 AM [facility] NRBC 0.0 % 03/14/2025 7:42 AM [facility] ABS NRBC 0.0 thou /cu mm 03/14/2025 7:42 AM [facility] % NEUT 76.1 % 03/14/2025 7:42 AM [facility] % LYMPH 14.5 % 03/14/2025 7:42 AM [facility] % MONO 8.7 % 03/14/2025 7:42 AM [facility] % EOS 0.1 % 03/14/2025 7:42 AM [facility] % BASO 0.1 % 03/14/2025 7:42 AM [facility] % IMMATURE GRAN (METAS,MYELOS,NH OS) 0.5 % 03/14/2025 7:42 AM [facility] ABSOLUTE NEUTROPHILS 11.0(H) 1.7 - 7.0 thou/cu mm 03/14/2025 7:42 AM [facility] ABSOLUTE LYMPHOCYTES 2.1 0.9 - 2.9 thou/cu mm 03/14/2025 7:42 AM [facility] ABSOLUTE MONOCYTES 1.3(H) <0.9 thou/cu mm 03/14/2025 7:42 AM [facility] ABSOLUTE EOSINOPHILS 0.0 <0.5 thou/cu mm 03/14/2025 7:42 AM [facility] ABSOLUTE BASOPHILS 0.0 <0.3 thou/cu mm 03/14/2025 7:42 AM [facility] ABSOLUTE IMMATURE GRANULOCYTES(MET ,MYELOS,PROS) 0.1 <0.3 thou/cu mm 03/14/2025 7:42 AM [facility] Blood BLOOD SPECIMEN / Unknown Butterfly / Unknown 03/14/2025 7:02 AM T 03/14/2025 7:35 AM T Robles Jorge MD HEMATOLOGY Final Result [facility] SENDOUT [place] [phone] [place] [address] * SCAN-CARDIAC STRIP (03/13/2025 6:11 PM CDT) us Scanner OTHER Final Result * (ABNORMAL) COMP METABOLIC PANEL (03/13/2025 5:53 PM CDT) SODIUM 137 136 - 145 mmol/L 03/13/2025 6:46 PM [facility] POTASSIUM 4.6 3.5 - 5.1 mmol/L 03/13/2025 6:46 PM [facility] CHLORIDE 103 98 - 107 mmol/L 03/13/2025 6:46 PM [facility] CO2,TOTAL 23 22 - 29 mmol/L 03/13/2025 6:46 PM [facility] ANION GAP 11 5 - 18 03/13/2025 6:46 PM [facility] GLUCOSE 134(H) 70 - 99 mg/dL 03/13/2025 6:46 PM [facility] CALCIUM 8.9 8.8 - 10.4 mg/dL 03/13/2025 6:46 PM [facility] Comment: Reference ranges for this test were updated on 08/20/2024 to reflect our healthy population more accurately. Reference range changes are not retroactively applied to results, but previous results using the same methodology can be interpreted in the context of the new reference range. BUN 17 8 - 23 mg/dL 03/13/2025 6:46 PM [facility] CREATININE 0.75 0.50 - 0.90 mg/dL 03/13/2025 6:46 PM [facility] BUN/CREAT RATIO 23(H) 10 - 20 6:46 PM [facility] eGFR 87(L) >90 mL/min/1. 73m2 03/13/2025 6:46 PM [facility] Comment:As of 2021, eG FR is calculated by the CKD-EPI creatinine equation without race adjustment. eGFR can be influenced by muscle mass, exercise, and diet. The reported eGFR is an estimation only and is only applicable if the renal function is stable. ALBUMIN 3.9(L) 4.0 - 4.9 g/dL 03/13/2025 6:46 PM CDT [facility] PROTEIN,TOTAL 6.7 6.0 - 8.0 g/dL 03/13/2025 6:46 PM CDT [facility] BILIRUBIN,TOTAL 0.2 0.0 - 1.2 mg/dL 03/13/2025 6:46 PM CDT [facility] ALK PHOSPHATASE 59 35 - 104 IU/L 03/13/2025 6:46 PM CDT [facility] ALT (SGPT) 15 10 - 35 IU/L 03/13/2025 6:46 PM CDT [facility] AST (SGOT) 22 10 - 35 IU/L 03/13/2025 6:46 PM CDT [facility] Blood BLOOD SPECIMEN / Unknown Venipuncture / Unknown 03/13/2025 5:53 PM CDT 03/13/2025 6:14 PM CDT Robles Jorge MD CHEMISTRY Final Result Performing Organization Address City/State/[facility] Co de Phone Number [facility] SENDOUT INTERNAL ZIP [phone] [place] [address] * XR C-ARM EQUAL OR LESS 1 [...] C-ARM EQUAL OR LESS 1 HR LOCATION: [facility] MEDICAL IMAGING DATE: 03/13/2025 INDICATION: free text)->intra [...] C-ARM EQUAL OR LESS 1 HR LOCATION: [facility] MEDICAL IMAGING DATE: 03/13/2025 INDICATION: free text)->intra [...] Cm MD FLUOROSCOPY Final Result * XR O-ARM FLUORO 31-120 MINUTES (03/13/2025 11:26 AM CDT) Anatomical Region Laterality Modality Computed Radiogr aphy 03/13/2025 11:2 6 AM CDT Impressions 03/19/2025 1:19 PM CDT Intraprocedure fluoroscopy provided for localization purposes. Correlate with procedure note and intraprocedural finding. Postsurgical changes of anterior spinal fusion at L5-S1. Refer to operative report for details. Narrative 03/19/2025 1:19 PM CDT For Patients: As a result of the Cures Act, medical imaging exams and procedure reports are released immediately into your electronic medical record. You may view this report before your referring provider. If you have questions, please contact your health care provider. For Patients: As a result of the Cures Act, medical imaging exams and procedure reports are released immediately into your electronic medical record. You may view this report before your referring provider. If you have questions, please contact your health care provider. EXAM: XR O-ARM FLUORO 31-120 MINUTES LOCATION: [facility] MEDICAL IMAGING DATE: 03/13/2025 INDICATION: free text)->intra op COMPARISON: None. TECHNIQUE: Intraoperative fluoroscopy performed during the patient's procedure. RADIATION DOSE: CARO 31.45 mGy Procedure Note Briseyda Dahl MD - 03/19/2025 For Patients: As a result of the Cures Act, medical imagingexams and procedure reports are released immediately into your electronicmedical record. You may view this report before your referring provider.If you have questions, please contact your health care provider. For Patients: As a result of the Cures Act, medical imagingexams and procedure reports are released immediately into your electronicmedical record. You may view this report before your referring provider.If you have questions, please contact your health care provider. EXAM: XR O-ARM FLUORO 31-120 MINUTES LOCATION: [facility] MEDICAL IMAGING DATE: 03/13/2025 INDICATION: free text)->intra op COMPARISON: None. TECHNIQUE: Intraoperative fluoroscopy performed during the patient'sprocedure. RADIATION DOSE: CARO 31.45 mGy IMPRESSION: Intraprocedure fluoroscopy provided for localization purposes. Correlatewith procedure note and intraprocedural finding. Postsurgical changes ofanterior spinal fusion at L5-S1. Refer to operative report for details. us Shawn Cm MD FLUOROSCOPY Final Result * [...] hardware in the L5-S1 disc space with samaritan of the intervertebral disc space height. Grade [...] EXAM: XR SPINE 1 VIEW PORTABLE LOCATION: [facility] MEDICAL IMAGING DATE: 03/13/2025 INDICATION: Spinal localization. [...] EXAM: XR SPINE 1 VIEW PORTABLE LOCATION: [facility] MEDICAL IMAGING DATE: 03/13/2025 INDICATION: Spinal localization. COMPARISON: Lumbar spine radiographs 03/13/2025 at 08:[address] lumbarspine 12/20/2024. Lumbar spine radiographs dated 11/06/2024. IMPRESSION: A single lateral and two AP images of the lumbar spine were obtainedduring the patient's operation. Nomenclature presumes 5 lumbar vertebralbodies. New anterior/interbody fusion hardware in the L5-S1 disc spacewith samaritan of the intervertebral disc space height. Grade [...] Dr. Cm at 09:45 hoursCentral time 03/13/2025. Result [facility] Shawn Cm MD GENERAL IMAGING Final Result [...] Bite Block: soft Difficulty: 0 (not difficult) Result [facility] Antonio Peña MD ANESTHESIA PX NOTE ORD ERABLES Final Result * Type and Screen (03/13/2025 6:02 AM CDT) ABORH A Rh Negative 03/13/2025 7:05 AM CDT [facility] BLOOD BANK ANTIBODY SCREEN Negative Negative 03/13/2025 7:05 AM CDT [facility] BLOOD BANK SPECIMEN EXPIRATION DATE/TIME 03/16/25 23:59 03/13/2025 7:05 AM CDT [facility] BLOOD BANK Blood BLOOD SPECIMEN / Unknown Non-Lab Venipuncture / Unknown 03/13/2025 6:02 AM CDT 03/13/2025 6:10 AM CDT Result [facility] Shawn Cm MD BLOOD BANK Final Result [facility] BLOOD BANK [address] [place] [address] * SCAN-CARDIAC STRIP (03/13/2025 12:00 AM CDT) [...] COUNT 8.4 3.8 - 10.8 Thousand/u L [facility] RED BLOOD CELL COUNT 4.79 3.80 [...] PM CDT 02/13/2025 3:58 PM CDT Narrative [facility] - 02/14/2025 3:08 AM CDT FASTING:NO FASTING: NO Harvey CORTES HEMATOLOGY Final Resul t [employer] [facility] [address] [place] [address], [facility] [address] [place] [address] * BASIC METABOLIC PANEL (02/13/2025 3:57 PM CDT) Pathologist [facility] GLUCOSE 85 65 - 139 mg/dL [facility] Comment: Non-fasting reference interval UREA NITROGEN (BUN) 20 7 - 25 mg/dL [facility] CREATININE 0.72 0.50 - 1.05 mg/dL [facility] EGFR 92 > OR = 60 mL/min/1. 73m2 [facility] BUN/CREATININE RATIO SEE NOTE: 6 - 22 (calc) [facility] Comment: Not Reported: BUN and Creatinine are within reference range. SODIUM 137 135 - 146 mmol/L [facility] POTASSIUM 4.2 3.5 - 5.3 mmol/L [facility] CHLORIDE 104 98 - 110 mmol/L [facility] CARBON DIOXIDE 23 20 - 32 mmol/L [facility] ELECTROLYTE BALANCE 10 7 - 17 mmol/L (calc) [facility] CALCIUM 9.9 8.6 - 10.4 mg/dL [facility] Blood BLOOD SPECIMEN / Unknown 02/13/2025 3:57 PM CDT 02/13/2025 3:58 PM CDT Narrative [facility] - 02/14/2025 5:24 AM CDT FASTING:NO FASTING: NO Harvey CORTES CHEMISTRY Final Resul t [facility] [address] [place] [address], [facility] [address] [place] [address] * XR MAMMO SABRINA BILAT SCREEN (09/26/2024 2:16 PM PUT IN BEAT ADJUSTER) Anatomical Region Laterality Modality BREASTS, Breast Left, Breast Right Bilateral Mammography Impressions 09/28/2024 4:11 PM PUT IN BEAT ADJUSTER There is no radiographic evidence for malignancy. Recommend annual mammograms. MAMMOGRAM ASSESSMENT: ACR 1 Negative PATIENTS: You will also receive a letter with your examination results in an easy to read format. If you have questions about your results, please contact your referring provider. Narrative 09/28/2024 4:11 PM PUT IN BEAT ADJUSTER For Patients: As a result of the Century Cures Act, medical imaging exams and procedure reports are released immediately into your electronic medical record. You may view this report before your referring provider. If you have questions, please contact your health care provider. XR MAMMO SABRINA BILAT SCREEN [[id number]] CLINICAL HISTORY: This is an asymptomatic 69 y.o. patient. INDICATION FOR EXAM: Mammogram Screening. TECHNIQUE: CC & MLO views were obtained. This study was evaluated with the assistance of Computer-Aided Detection. Breast Tomosynthesis was used in interpretation. COMPARISON FILM: Yes 09/19/23 [facility] 05/26/22 [facility] FINDINGS: There are scattered areas of fibroglandular density. There are no dominant masses, suspicious micro calcifications or areas of architectural distortion. Harvey CORTES MAMMO Final Resul t * (ABNORMAL) LIPID PANEL W REFLEX MEASURED LDL (09/18/2024 10:19 AM PUT IN BEAT ADJUSTER) CHOLESTEROL, TOTAL 150 <200 mg/dL [facility] HDL CHOLESTEROL 46(L) > OR = 50 mg/dL [facility] TRIGLYCERIDES 183(H) <150 mg/dL [facility] LDL-CHOLESTEROL 76 mg/dL (calc) [facility] Comment: Reference range: <100 Desirable range <100 mg/dL for primary prevention; <70 mg/dL for patients with CHD or diabetic patients with > or = 2 CHD risk factors. LDL-C is now calculated using the Jeremie calculation, which is a validated novel method providing better accuracy than the Friedewald equation in the estimation of LDL-C. Wicho SS et al. TIM. 2013;310(19): 8664-5973 (http://education.[employer]/faq/ROE432) CHOL/HDLC RATIO 3.3 <5.0 (calc) Emb[employer]-W tatianakt Avery NON HDL CHOLESTEROL 104 <130 mg/dL (calc) [facility] Comment: For patients with diabetes plus 1 major ASCVD risk factor, treating to a non-HDL-C goal of <100 mg/dL (LDL-C of <70 mg/dL) is considered a therapeutic option. Blood BLOOD SPECIMEN / Unknown 09/18/2024 10:19 AM PUT IN BEAT ADJUSTER 09/18/2024 10:19 AM PUT IN BEAT ADJUSTER Narrative [facility] - 09/19/2024 4:37 AM PUT IN BEAT ADJUSTER FASTING:YES FASTING: YES Harvey CORTES CHEMISTRY Final Resul t Health Plan [facility] [address] [place] [address], [facility] [address] [place] [address] * XR DXA BONE DENSITY 2 SITES [...] DXA BONE DENSITY 2 SITES AXIAL LOCATION: [facility] DATE/TIME: 01/23/2023 2:32 PM INDICATION: I. [...] DXA BONE DENSITY 2 SITES AXIAL LOCATION: [facility] DATE/TIME: 01/23/2023 2:32 PM INDICATION: I. [...] t * SCAN-COLONOSCOPY (08/15/2014 12:00 AM CDT) Scanner OTHER Final Result from Last 3 Months or Most Recently Relevant to Health Maintenance Additional Health Concerns Infection Onset Date Last Indicated MRSA Clearance Comment:Infection Control Note: Hx 2009, surveillance criteria met, no need for further testing or isolation precautions. Do not delete or resolve the Infection Flag. 03/13/2025 03/13/2025 [phone] [id number] [place] [address] MEDICARE PART A HB ONLY [facility] Advance Directives * Full Code (Latest Code [...] Code Status Discussion: Reviewed Preferences Care Teams Tactical Debriefer Relationship Specialty [place] [address] [place] [address] PCP - General Physician Cupola Charger 10/14/20 [place] [address] [place] [address] Consulting Physician Physician Cupola Charger 07/02/21 Aleksandar Lopez MD [address] [phone] Consulting Physician Surgery - General 03/03/22 Elza Rubi RN [address] [phone] Sole Cutter Registered Nurse 03/03/[address] [id number] Flocculator Operator/Medical Art Therapist Fish Worm Grower 03/03/22 Johanny Baires PA [address] [phone] Physician Cupola Charger 11/03/22 [place] [address] Sole Cutter 01/17/25
--- OUTSIDE RECORDS SUMMARY | 2025-03-25 13:43 | XMS_ITS | Clinical Summary ---
Author Organization [facility] Address [address] [place] [address] Care Team Providers Care Community Coordinator [employer] Name Role Phone Harvey Ely PA-C Primary [...] [facility] Weight Management 11/01/2022. 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
--- NOTE | 2025-03-25 14:11 | ED.GENADULT ---
HPI - General Adult General Chief complaint: Seizure Stated complaint: seizure earlier, has epilepsy Time Seen by Provider: 03/25/25 13:48 History of Present Illness HPI narrative: patient has a hx of seizures and this am woken up on the floor, does not remember anything. feeling really out of it. had a recent back surgery on 03/13 with removal of vertebrae and 2 incisions with fusion, bone grafting concerned of hurting recent surgery. pain is the same as before the event. denies PEGUERO or vision issues. slow to remember and get words out. was not incontinent of urine or bladder. 69-year-old woman presenting to the emergency department following suspected seizure. She does not have an aura. Actually saw her neurologist yesterday and it sounds like was recommended for an EEG due to slower thinking in speech. Was also recommended to take lorazepam for general confusion. Does have an underlying history of epilepsy. Sees [place] [facility]. Currently taking Keppra 1500 mg twice daily. No imaging was recommended following yesterday's visit. Was seen at this facility the days ago due to some difficulty with word finding and orientation. Underlying history of anticoagulation with apixaban. And did end up having CT angio of head and neck which were ?reassuring. Had recent back surgery with vertebral resection and fusion. She is concerned about potential disruption of sutures. She has not had a fever. Has been taking Dilaudid for pain. Reviewing with on-call [place] [facility] provider later when seen in clinic yesterday there had been concern of whether not the confusion she had been demonstrating was related to Dilaudid or related to seizure disorder. Recommended then for EEG to double check. Related Data Home Medications ?Medication ?Instructions ?Recorded ?Confirmed albuterol sulfate 90 mcg/actuation 2 puff inhalation Q6H PRN 07/03/22 03/25/25 aerosol inhaler apixaban 5 mg tablet (Eliquis) 5 mg PO BID 07/03/22 03/25/25 cholecalciferol (vitamin D3) 125 5,000 unit PO QDAY 07/03/22 03/25/25 mcg (5,000 unit) tablet citalopram 40 mg tablet 40 mg PO QDAY 07/03/22 03/25/25 fluticasone 250 mcg-salmeterol 50 1 inh inhalation Q12H PRN 07/03/22 03/25/25 mcg/dose blistr powdr for inhalation (Advair Diskus) levetiracetam 750 mg tablet 1,500 mg PO Q12H 07/03/22 03/25/25 metformin 500 mg tablet,extended 1,000 mg PO QDAY 07/03/22 03/25/25 release 24 hr multivitamin-ferrous 1 tab PO Q24H 07/03/22 03/25/25 fumarate-folic acid 18 mg-400 mcg tablet (Certavite-Antioxidant) nitroglycerin 0.4 mg sublingual 0.4 mg sublingual Q5M PRN 07/03/22 03/25/25 tablet ciclopirox 8 % topical solution topical QPM 03/17/25 metoprolol succinate 25 mg 25 mg PO DAILY 03/17/25 03/25/25 tablet,extended release 24 hr rosuvastatin 20 mg tablet 10 mg PO QPM 03/17/25 03/25/25 semaglutide (weight loss) 2.4 2.4 mg subcut Q7D 03/17/25 03/25/25 mg/0.75 mL subcutaneous pen injector (Anabell) Previous Rx's ?Medication ?Instructions ?Recorded divalproex 500 mg tablet,extended 500 mg PO BID #60 tabs 03/27/25 release 24 hr (Depakote ER) Allergies Allergy/AdvReac Type Severity Reaction Status Date / Time Penicillins Allergy Intermediate hives Verified 03/25/25 13:57 Review of Systems Status of ROS: Reports: unobtainable due to mental status [facility] Medical History (Updated 03/27/25 @ 14:37 by Ralph Fairchild MD) Obstructive sleep apnea ?G47.33 - Obstructive sleep apnea (adult) (pediatric) (ICD-10) Tremor (11/05/24) ?R25.1 - Tremor, unspecified (ICD-10) Refractory migraine without aura (02/15/13) ?G43.019 - Migraine without aura, intractable, without status migrainosus (ICD-10) 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/10/16) ?G40.A09 - Absence epileptic syndrome, not intractable, without status epilepticus (ICD-10) Metabolic syndrome (09/15/11) ?E88.810 - Metabolic syndrome (ICD-10) Incontinence (04/04/11) ?R32 - Unspecified urinary incontinence (ICD-10) IFG (impaired fasting glucose) (07/31/15) ?R73.01 - Impaired fasting glucose (ICD-10) History of asthma (01/20/22) ?Z87.09 - Personal history of other diseases of the respiratory system (ICD-10) Hiatal hernia (10/28/22) ?K44.9 - Diaphragmatic hernia without obstruction or gangrene (ICD-10) 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/13) ?G40.309 - Generalized idiopathic epilepsy and epileptic syndromes, not intractable, without status epilepticus (ICD-10) Gastroesophageal reflux disease ?K21.9 - Gastro-esophageal reflux disease without esophagitis (ICD-10) Dysphagia ?R13.10 - Dysphagia, unspecified (ICD-10) Depression, recurrent (09/15/22) ?F33.9 - Major depressive disorder, recurrent, unspecified (ICD-10) Coronary artery disease involving cherokee coronary artery without angina pectoris (02/03/15) ?I25.10 - Atherosclerotic heart disease of cherokee coronary artery without angina pectoris (ICD-10) Chronic atrial fibrillation (03/13/25) ?I48.20 - Chronic atrial fibrillation, unspecified (ICD-10) Atrial fibrillation with RVR (05/03/13) ?I48.91 - Unspecified atrial fibrillation (ICD-10) Adjustment disorder with depressed mood (02/16/10) ?F43.21 - Adjustment disorder with depressed mood (ICD-10) Bilateral primary osteoarthritis of knee ?M17.0 - Bilateral primary osteoarthritis of knee (ICD-10) Morbid obesity with BMI of 40.0-44.9, adult ?E66.01 - Morbid (severe) obesity due to excess calories (ICD-10) ?Z68.41 - Body mass index [BMI] 40.0-44.9, adult (ICD-10) Seizures ?R56.9 - Unspecified convulsions (ICD-10) Elevated cholesterol ?E78.00 - Pure hypercholesterolemia, unspecified (ICD-10) Arthritis ?M19.90 - Unspecified osteoarthritis, unspecified site (ICD-10) Hypertension ?I10 - Essential (primary) hypertension (ICD-10) Heart attack ?I21.9 - Acute myocardial infarction, unspecified (ICD-10) Surgical History (Updated 03/27/25 @ 14:21 by Ralph Fairchild MD) Status post lumbar surgery ?Z98.890 - Other specified postprocedural states (ICD-10) S/P colonoscopy with polypectomy (07/31/15) ?Z98.890 - Other specified postprocedural states (ICD-10) History of gastric bypass (03/02/23) ?Z98.84 - Bariatric surgery status (ICD-10) H/O bariatric surgery ?Z98.84 - Bariatric surgery status (ICD-10) Social History (Updated 03/25/25 @ 20:28 by Adelina Mckenzie MD) Narrative: Denies tobacco, alcohol, or recreational drug use. What is your current living situation?: I presently have a place to live Problems where you live: no known problems Problems where you live details: None reported In the past 12 months, utilities in danger of being shut off: no In past 12 months, lack of transportation kept you from medical appts, meetings, work, or getting things needed for daily living: no In the past 12 mos, have been you worried that your food would run out before you had money to buy more?: never true In the past 12 mos, the food you bought just didn't last and you didn't have money to buy more?: never true Highest level of school completed/degree received: some college, no degree Smoking Status: Never smoker Do you use any of these nicotine containing products: None How often do you have a drink containing alcohol: never AUDIT-C Alcohol total score: 0 Non-prescribed substance use: denies use Caffeine: No How often does anyone, including family, friends and others, physically hurt you: never How often does anyone, including family, friends and others, insult or talk down to you: never How often does anyone, including family, friends and others, threaten you with harm: never How often does anyone, including family, friends and others, scream or curse at you: never service: No Exam Narrative: Exam Narrative: Accompanied here by care provider. She is ambulatory into the emergency department. Cranial nerves 2-12 intact. There is no nystagmus. Normal [id number]. Pupils are 2 mm and equal. Does seem sleepy. Takes quite a while to get her words out. Clear word-finding difficulty. Moving all extremities without difficulty. She is able to transition to sitting without difficulty. Lungs are clear. Well-healing bilateral mid back surgical incisions. No surrounding unusual inflammatory changes. No drainage. Also examination of the abdomen with well-healing surgical incision. There is some smegma in abdominal fold but this is below level incision. Abdomen is overweight soft and nontender. Heart in elevated rate regular rhythm. There is maybe a small cold sore on the right lower lip. Looks like she may have nicked her tongue little bit of the left. No active bleeding. Const: Vital Signs, click to edit/add: Vital Signs - 24 hr 03/25/25 13:41 03/25/25 15:55 Temperature 98.5 F Pulse Rate 100 Pulse Rate [Pulse Oximeter] 96 Respiratory Rate 18 16 Blood Pressure 151/92 H Blood Pressure [Ri ght Upper Arm] 110/82 Pulse Oximetry 95 97 Oxygen Delivery Me thod Room Air Room Air Documenting provider has reviewed patient's vital signs: yes Course Vital Signs Vital signs: Initial Vital Signs Temperature 98.5 F 03/25/25 13:41 Temperature Source Temporal Artery Scan 03/25/25 13:41 Pulse Rate 96 03/25/25 13:41 Respiratory Rate 18 03/25/25 13:41 Blood Pressure 110/82 03/25/25 13:41 Blood Pressure Mean 91 03/25/25 13:41 Blood Pressure Position Sitting 03/25/25 13:41 Pulse Oximetry 95 03/25/25 13:41 Oxygen Delivery Method Room Air 03/25/25 13:41 Vital Signs Temperature 98.5 F 03/25/25 13:41 Pulse Rate 96 03/25/25 13:41 Respiratory Rate 18 03/25/25 13:41 Blood Pressure 110/82 03/25/25 13:41 Pulse Oximetry 95 03/25/25 13:41 Oxygen Delivery Method Room Air 03/25/25 13:41 Temperature 98.8 F 03/27/25 11:00 Pulse Rate 75 03/27/25 11:00 Respiratory Rate 18 03/27/25 11:00 Blood Pressure 102/65 03/27/25 11:00 Pulse Oximetry 96 03/27/25 11:00 Oxygen Delivery Method Room Air 03/27/25 11:00 Medications Administered Medications: Discontinued Medications Generic Name Dose Route Start Last Admin Trade Name Freq PRN Reason Stop Dose Admin Acetaminophen 650 mg 03/25/25 21:03 03/25/25 22:15 Acetaminophen 325 Mg Tablet PO 650 mg Q6H PRN Administration As needed for fever, headache, or minor pain Apixaban 5 mg 03/25/25 21:00 03/27/25 09:13 Apixaban 5 Mg Tablet PO 5 mg BID MARIOLA Administration Citalopram Hydrobromide 40 mg 03/25/25 20:53 03/27/25 09:13 Citalopram Hydrobromide 20 Mg Tablet PO 40 mg DAILY MARIOLA Administration Diazepam 2.5 mg 03/25/25 16:58 03/25/25 17:13 Diazepam 5 Mg/Ml Inj IV 03/25/25 16:59 2.5 mg ONCE ONE Administration Divalproex Sodium 1,000 mg 03/25/25 17:20 03/25/25 17:31 Divalproex Sodium Er Tab 250 Mg PO 03/25/25 17:21 1,000 mg ONCE ONE Administration Divalproex Sodium 500 mg 03/25/25 21:00 03/27/25 09:14 Divalproex Sodium 125 Mg Cap.Spr PO 500 mg BID MARIOLA Administration Hydrochlorothiazide 12.5 mg 03/26/25 09:00 03/26/25 08:51 Hydrochlorothiazide 12.5 Mg Capsule PO 12.5 mg DAILY MARIOLA Administration Hydromorphone HCl 4 mg 03/25/25 21:00 03/26/25 04:08 Hydromorphone 2 Mg Tablet PO 4 mg Q6H PRN Administration pain Hydromorphone HCl 2 mg 03/26/25 07:46 03/26/25 08:52 Hydromorphone 2 Mg Tablet PO 2 mg Q4H PRN Administration pain Sodium Chloride 1,000 mls @ 1,000 mls/hr 03/25/25 14:29 03/25/25 17:28 0.9 % Sodium Chloride 1000 Ml IV 03/25/25 15:28 Infused .Q1H ONE Infusion Vancomycin/PEG/NADA/Lysine/Water 2 gm in 400 mls @ 200 mls/hr 03/25/25 22:00 03/26/25 00:05 Vancomycin 2 Gm/400 Ml IVPB 03/25/25 23:59 Infused ONCE ONE Infusion Protocol Meropenem 1 gm/ Sodium 100 mls @ 200 mls/hr 03/25/25 21:00 03/26/25 04:49 Chloride IVPB Infused Q8H MARIOLA Infusion Vancomycin/PEG/NADA/Lysine/Water 1.5 gm in 300 mls @ 150 mls/hr 03/26/25 10:00 03/26/25 10:09 Vancomycin 1.5 Gm/300 Ml IVPB 150 mls/hr Q12H MARIOLA Administration Levetiracetam 1,500 mg 03/25/25 21:00 03/27/25 09:13 Levetiracetam 500 Mg Tablet PO 1,500 mg Q12H MARIOLA Administration Levetiracetam/Sodium Chloride 1,000 mg 03/25/25 16:45 03/25/25 16:53 Levetiracetam 1,000 Mg/100 Ml Infusion IVPB 03/25/25 16:46 1,000 mg ONCE ONE Administration Lisinopril 20 mg 03/26/25 09:00 03/26/25 08:51 Lisinopril 20 Mg Tablet PO 20 mg DAILY MARIOLA Administration Metformin HCl 1,000 mg 03/25/25 20:30 03/27/25 09:13 Metformin Er 500 Mg PO 1,000 mg DAILY MARIOLA Administration Metoprolol Succinate 25 mg 03/26/25 09:00 03/27/25 09:14 Metoprolol Succinate (Xl) 25 Mg Tab PO 25 mg DAILY MARIOLA Administration Potassium Bicarbonate 25 meq 03/26/25 07:49 03/26/25 08:51 Potassium Bicarb 25 Meq Effervescent Tab PO 03/26/25 07:50 25 meq ONCE ONE Administration Rosuvastatin Calcium 10 mg 03/26/25 18:00 03/26/25 17:58 Rosuvastatin Calcium 10 Mg Tablet PO 10 mg QPM MARIOLA Administration Sodium Chloride 5 ml 03/25/25 21:00 03/27/25 09:14 Sodium Chloride 0.9 % (Flush) 10 Ml Syringe IVF 5 ml BID MARIOLA Administration Sodium Chloride 250 ml 03/25/25 20:15 03/26/25 20:26 0.9 % Sodium Chloride 250 Ml IV Not Given Q24H [facility] Medical Decision Making MDM Narrative Medical decision making narrative: Will check labs looking for evidence of infection electrolyte abnormalities. Keppra levels will be a send out. Does not appear to have excessive pain or any indication of infection on exam related to this recent surgery. Likely uncontrolled seizure disorder. Did place a call to [place] [facility] looking for further recommendations. While we are waiting for labs did have another seizure. Self resolved. Was noted to have bit her tongue in the same area where she had been next before on the left. On reexamination looks to be clotting well. I do not think needs repair Remains in similar state with slower mentation and a little confused with slower word-finding. Labs do show elevated white count little over 19,000. Surely some of this is margination but continue to look for infection. Not sure how much of this would be related to the recent surgery. Pending CT of her head as a possible there was a head injury and is anticoagulated. Did give a loading dose of 1 g of Keppra. Did reach on-call now after hours for [place] [facility]. Dr. Arias. Recommendations are to give IV Depakote of possible otherwise oral Depakote as would appear now that needs a 2nd antiepileptic. Recommendations are for Depakote ER 1000 mg initial dosing and then 500 mg b.i.d.. Would also monitor/admit for improvement in mental clearing. Pending at this time is chest x-ray and head CT Head CT independently reviewed by me is without acute abnormality. Chest x-ray also looks to be without infiltrate or pleural effusion. Have discussed case with hospitalist for admission Lab Data Lab results reviewed: Yes I reviewed the patient's lab results Labs: Lab Results 03/25/25 03/25/25 03/25/25 Range/Units 15:12 15:30 16:24 WBC 19.74 H (4.50-11.00) K/uL RBC 4.06 (4.00-5.20) m/uL Hgb 11.2 L (12.0-16.0) gm/dL Hct 34.9 (33.0-51.0) % MCV 86 (80-100) fL MCH 28 (26-34) pg MCHC 32 (32-36) gm/dL RDW Coeff of Pritesh 13.0 (11.5-15.5) % Plt Count 415 (140-440) K/uL Neut % (Auto) 87.3 H (42.0-72.0) % Lymph % (Auto) 6.7 L (20-44) % [place] % (Auto) 4.9 (0.0-11.0) % Eos % (Auto) 0.1 (0.0-7.0) % Baso % (Auto) 0.2 (0.0-3.0) % Neut # (Auto) 17.20 H (1.7-7.0) K/uL Lymph # (Auto) 1.30 (0.90-2.90) K/uL [place] # (Auto) 1.00 H (0.00-0.90) K/UL Eos # (Auto) 0.00 (0.00-0.50) K/uL Baso # (Auto) 0.00 (0.00-0.30) K/uL Abs Immat Gran (auto) 0.20 (0.00-0.30) K/uL Imm/Tot Granulo (auto) 0.8 % Sodium 133 L (135-149) mmol/L Potassium 4.8 (3.6-5.1) mmol/L Chloride 101 (96-114) mmol/L Carbon Dioxide 27 (20-32) mmol/L Anion Gap 5 L (7-15) mEq/L BUN 13 (7-30) mg/dL Creatinine 0.6 (0.5-1.5) mg/dL Estimated Creat Clear 49.12 Estimated GFR 98 ml/min Glucose 110 (60-115) mg/dL Lactate 1.3 (0.5-1.9) mmol/L Calcium 9.2 (8.4-10.6) mg/dL C-Reactive Protein 1.1 H (0.5-1.0) mg/dL Urine Color Yellow (Yellow) Urine Appearance Clear (Clear) Urine pH 6.5 (5.0-8.5) Ur Specific [place] 1.020 (1.000-1.030) Urine Protein 1+ A (Negative) Urine Glucose (UA) Negative (Negative) Urine Ketones 2+ A (Negative) Urine Blood Negative (Negative) Urine Nitrite Negative (Negative) Urine Bilirubin Negative (Negative) Urine Urobilinogen 0.2 (0.2-1.0) Ur Leukocyte Esterase 1+ A (Negative) Urine RBC 0-2 (0-2) Urine WBC 5-10 A (0-5) Ur Squamous Epith Cells Many A (None-Few) Urine Bacteria Few A (None) Levetiracetam 8 L (10-40) ug/mL Lab Acknowledgement 03/25/25 Range/Units 17:54 WBC (4.50-11.00) K/uL RBC (4.00-5.20) m/uL Hgb (12.0-16.0) gm/dL Hct (33.0-51.0) % MCV (80-100) fL MCH (26-34) pg MCHC (32-36) gm/dL RDW Coeff of Pritesh (11.5-15.5) % Plt Count (140-440) K/uL Neut % (Auto) (42.0-72.0) % Lymph % (Auto) (20-44) % [place] % (Auto) (0.0-11.0) % Eos % (Auto) (0.0-7.0) % Baso % (Auto) (0.0-3.0) % Neut # (Auto) (1.7-7.0) K/uL Lymph # (Auto) (0.90-2.90) K/uL [place] # (Auto) (0.00-0.90) K/UL Eos # (Auto) (0.00-0.50) K/uL Baso # (Auto) (0.00-0.30) K/uL Abs Immat Gran (auto) (0.00-0.30) K/uL Imm/Tot Granulo (auto) % Sodium (135-149) mmol/L Potassium (3.6-5.1) mmol/L Chloride (96-114) mmol/L Carbon Dioxide (20-32) mmol/L Anion Gap (7-15) mEq/L BUN (7-30) mg/dL Creatinine (0.5-1.5) mg/dL Estimated Creat Clear Estimated GFR ml/min Glucose (60-115) mg/dL Lactate (0.5-1.9) mmol/L Calcium (8.4-10.6) mg/dL C-Reactive Protein (0.5-1.0) mg/dL Urine Color (Yellow) Urine Appearance (Clear) Urine pH (5.0-8.5) Ur Specific [place] (1.000-1.030) Urine Protein (Negative) Urine Glucose (UA) (Negative) Urine Ketones (Negative) Urine Blood (Negative) Urine Nitrite (Negative) Urine Bilirubin (Negative) Urine Urobilinogen (0.2-1.0) Ur Leukocyte Esterase (Negative) Urine RBC (0-2) Urine WBC (0-5) Ur Squamous Epith Cells (None-Few) Urine Bacteria (None) Levetiracetam (10-40) ug/mL Lab Acknowledgement Test Added ECG Data Attestation: I personally reviewed and interpreted this ECG as follows: (Normal sinus rhythm a rate of 88) Critical Care Time Critical Care Time Critical Care Time: Yes Attestation: The patient required my highest level preparedness to intervene emergently and I personally spent this critical care time directly and personally managing the patient. This critical care time included: Obtaining a history; Examining the patient; Pulse oximetry; Ordering and reviewing of studies; Arranging urgent treatment with development of a management plan; Evaluation of patients response to treatment; Frequent reassessment discussions with other providers. This critical care time was performed to assess and manage the high probability of imminent life-threatening deterioration that could result in multiorgan failure. It was exclusive of separate billable procedures and treating other patients and teaching time. Total Critical Care Time in Minutes: 50 Discharge Plan Discharge Clinical Impression: Recurrent seizures, Altered mental status Patient Disposition: Admitted As Observation Condition: Stable Activity Level: Wear Brace and Use Walker Discharge Diet: Heart Healthy (2 gm sodium, low fat)
[2025-03-25 15:21] LABS: Lactate* 1.3 mmol/L (0.5-1.9)
[2025-03-25 15:26] LABS: Basophils Percent Auto 0.2 % (0.0-3.0); Eosinophils Percent Auto 0.1 % (0.0-7.0); Hematocrit 34.9 % (33.0-51.0); Hemoglobin* 11.2 gm/dL (12.0-16.0); Immature Granulocytes Pct Auto 0.8 %; Lymphocytes Percent Auto 6.7 % (20-44); Mean Corpuscular HGB Conc 32 gm/dL (32-36); Mean Corpuscular Hemoglobin 28 pg (26-34); Mean Corpuscular Volume 86 fL (80-100); Monocytes Percent Auto 4.9 % (0.0-11.0); Neutrophils Percent Auto 87.3 % (42.0-72.0); Platelet Count* 415 K/uL (140-440); Red Blood Count 4.06 m/uL (4.00-5.20); White Blood Count* 19.74 K/uL (4.50-11.00)
[2025-03-25 15:28] LABS: Slide Review Reflex No
[2025-03-25 15:40] LABS: Chloride* 101 mmol/L (96-114); Sodium* 133 mmol/L (135-149)
[2025-03-25 15:41] LABS: Potassium* 4.8 mmol/L (3.6-5.1)
[2025-03-25 15:43] LABS: Blood Urea Nitrogen* 13 mg/dL (7-30); Creatinine* 0.6 mg/dL (0.5-1.5); Est. Creatinine Clearance* 49.12; Estimated Glomerular Filt Rate 98 ml/min
[2025-03-25 15:44] LABS: Anion Gap 5 mEq/L (7-15); Calcium* 9.2 mg/dL (8.4-10.6); Carbon Dioxide* 27 mmol/L (20-32); Glucose* 110 mg/dL (60-115)
[2025-03-25 15:46] LABS: Appearance Urine Clear (Clear); Bilirubin Urine Negative (Negative); Blood Urine Negative (Negative); Color Urine Yellow (Yellow); Glucose Urine Negative (Negative); Ketones Urine 2+ (Negative); Leukocyte Esterase Urine 1+ (Negative); Nitrite Urine Negative (Negative); Protein Urine 1+ (Negative); Urobilinogen Urine 0.2 (0.2-1.0); pH Urine 6.5 (5.0-8.5)
[2025-03-25] MEDS: 0.9 % SODIUM CHLORIDE 1000 ml 1,000 ML IV (15:51)
[2025-03-25 16:22] LABS: Bacteria Urine Few; RBC Urine 0-2 (0-2); Squamous Epithelial Cell Urine Many (None-Few)
--- NOTE | 2025-03-25 16:45 | CRLHL7_ITS ---
For Patients: As a result of the Century Cures Act, medical imaging exams and procedure reports are released immediately into your electronic medical record. You may view this report before your referring provider. If you have questions, please contact your health care provider. INDICATION: Recurrent seizure TECHNIQUE: Noncontrast axial CT of the head. Coronal and sagittal reformats. Bone and soft tissue algorithms. COMPARISON: CT head 03/17/2025 FINDINGS: There is artifact from patient motion, degrading image quality. No acute intracranial hemorrhage or abnormal extra-axial fluid collection identified. Small hypoattenuating focus within the subcortical right frontal lobe white matter likely represents a prominent perivascular space versus chronic lacunar infarct, stable. Salazar-white matter differentiation is preserved. No midline shift, hydrocephalus or herniation. Hyperostosis frontalis interna. Suspect small secretions within the bilateral maxillary sinuses. No mastoid effusion. Unremarkable obscured orbits. IMPRESSION: 1. Motion degraded exam, without evidence of acute intracranial abnormality or significant interval change relative to 03/17/2025. Please note that all CT scans at this facility use dose modulation, iterative reconstruction, and/or weight-based dosing when appropriate to reduce radiation dose to as low as reasonably achievable. Dictated by Marycarmen Calvillo MD @ 03/25/2025 6:16:55 PM (Electronically Signed)
--- NOTE | 2025-03-25 16:45 | CRLHL7_ITS ---
For Patients: As a result of the Century Cures Act, medical imaging exams and procedure reports are released immediately into your electronic medical record. You may view this report before your referring provider. If you have questions, please contact your health care provider. INDICATION: Recurrent seizure. TECHNIQUE: Chest 1 views. COMPARISON: None. FINDINGS: Cardiovasculature and mediastinum: Heart size is normal. Unremarkable mediastinum. Lungs and pleural spaces: Lungs are clear. No sign of infiltrate or mass. No sign of pleural effusion. No pneumothorax. Bones and soft tissues: No significant findings. IMPRESSION: Negative chest. Dictated by Ry Moreno MD @ 03/25/2025 6:17:49 PM (Electronically Signed)
[2025-03-25] MEDS: LEVETIRACETAM 1,000 mg/100 ml INFUSION 1000 MG IVPB (16:53)
[2025-03-25] MEDS: diazePAM 5 MG/ML inj 2.5 MG IV (17:13)
[2025-03-25] MEDS: DIVALPROEX SODIUM ER TAB 250 MG 1000 MG PO (17:31)
[2025-03-25 18:13] LABS: C Reactive Protein* 1.1 mg/dL (0.5-1.0)
--- NOTE | 2025-03-25 20:19 | PM.IMHP1 ---
Assessment and Plan Assessment and plan (1) Altered mental status: Problem comment: - Appears to be combination of post ictal and antiseizure medication - Admit for observation, q4h neuro checks Status: Acute (2) Recurrent seizures: Problem comment: - Potential causes for breakthrough seizures in this patient include: lower seizure threshhold due to taking flexeril, skalexin, and dilaudid, stress of recent surgery and changes in routines, and potentially forgetting to take antiseizure medications - Admit for observation, start depakote (bolus dose given in ER) in addition to continuing Keppra (extra dose of this given IV in ER), seizure precautions, outpatient EEG and f/u with [place] [facility]. As patient becomes more alert, discuss importance of taking all medications as prescribed and discuss weaning off dilaudid, flexeril, and skalexin. 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 She also has an elevated WBC. Both of these may be due to seizure, but with h/o recent lumbar surgery from which she is still quite painful and taking around the clock opioids, I will draw 2 blood cultures, start Meropenem (PCN allergy) and Vanco tonight and MRI lumbar spine could be considered tomorrow if leukocytosis and fever not improving or if something grows out on blood cultures. Status: Acute (6) Chronic atrial fibrillation: Problem comment: Continue Eliquis and metoprolol Status: Chronic (7) Morbid obesity with BMI of 40.0-44.9, adult: Status: Chronic (8) IFG (impaired fasting glucose): Problem comment: Continue metformin Status: Chronic (9) Elevated cholesterol: Problem comment: Continue rosuvastatin Status: Chronic (10) Hypertension: Problem comment: Continue metoprolol, lisinopril and hydrochlorothiazide Status: Chronic (11) Coronary artery disease involving little traverse coronary artery without angina pectoris: Problem comment: Asymptomatic at present Status: Chronic Total Time Spent Total Time Spent: Time spent: Today I spent 75 minutes seeing the patient, phone call with her daughter, discussing the patient with ER staff, reviewing [facility] and [facility] notes/diagnostics, discussing the care plan with our care team that includes social work, PT/OT, pharmacy, RT, snf and documenting my impressions and plan in the medical record. Hospitalist- H&P: ALLAN History of Present Illness Time Seen by Provider: 19:30 Date Seen: 03/25/25 Chief complaint: seizure earlier, has epilepsy Narrative: Amber Childers is a 69 year old female with a history of epilepsy, chronic anticoagulation for AFib, asthma, GERD, obesity, hypertension, coronary artery disease, impaired fasting glucose, and migraine headache who presented through the emergency department today for concerns of seizures. I was able to gather some history from jayden riley, but she is postictal and recently had Valium, Keppra, and Depakote in the ER, which impaired her ability to give me a good an accurate history. I also spoke with her daughter, Elis [phone], over the phone this evening who also gave me some history. Gabriela has a long history of back pain for which she has been on Flexeril for almost a year more, and she started having acute back pain near the end of January and beginning of February. There is an ER note I think it is from [place] in the care everywhere section of the [facility] record from the beginning of February that noted she is on Flexeril and Skelaxin. Jayden Mckeon's daughter tells me that she also started oral dilaudid sometime in February for back pain and then underwent lumbar spine surgery on 03/13/2025. Since then she has continued to use Dilaudid 4 mg p.o. every 6 hours. Her daughter thinks that maybe Gabriela has been using it more often than that and because of the sedative affect, has probably for gotten to take her anti seizure medication. Elis told me that in the last 5 years the handful of seizures Gabriela has had have all been due to forgetting to take her Keppra. Amber told me she is also been taking some lorazepam, but was unable to tell me how much or how often and did even know if she was taking it every day. I could not find any evidence of a recent prescription for lorazepam. Elis said that Gabriela has lorazepam from a long time ago that she still will take on occasion. When I expressed surprise that she was still taking that much Dilaudid this far out from surgery, she did tell me that she started to try to cut down on these medications yesterday, which she thinks is why the seizures started. On 03/17/2025 matthew castro came to our emergency department with word-finding difficulty and confusion. She then saw her neurologist yesterday who thought she should have an outpatient EEG. This morning Gabriela got up at some point and then found herself waking up on the floor without any memory of how she got there. She was very weak and could not get up from the floor so she crawled over to a chair and sat there for about an hour. Eventually her on air personality came to the house and, upon hearing what had happened, called EMS. In the emergency department today she had a witnessed 30 second tonic clonic seizure with some postictal findings as well. The ER doc spoke with the [place] epilepsy group who recommended covering with a 2nd agent, Depakote, and outpatient EEG. She was given extra dose of Keppra IV, an oral dose of Depakote, and Valium for the seizure. She remains postictal, but was starting to have some improvement while I was talking with her. She denies any recent illness, fevers or chills. Review of Systems Status of ROS: Reports: unobtainable due to mental status Medical Decision Making Medical Decision Making Code Status: FULL CODE 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/10/16) ?G40.A09 - Absence epileptic syndrome, not intractable, without status epilepticus (ICD-10) Metabolic syndrome (09/15/11) ?E88.810 - Metabolic syndrome (ICD-10) Incontinence (04/04/11) ?R32 - Unspecified urinary incontinence (ICD-10) IFG (impaired fasting glucose) (07/31/15) ?R73.01 - Impaired fasting glucose (ICD-10) History of asthma (01/20/22) ?Z87.09 - Personal history of other diseases of the respiratory system (ICD-10) Hiatal hernia (10/28/22) ?K44.9 - Diaphragmatic hernia without obstruction or gangrene (ICD-10) 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/13) ?G40.309 - Generalized idiopathic epilepsy and epileptic syndromes, not intractable, without status epilepticus (ICD-10) Gastroesophageal reflux disease ?K21.9 - Gastro-esophageal reflux disease without esophagitis (ICD-10) Dysphagia ?R13.10 - Dysphagia, unspecified (ICD-10) Depression, recurrent (09/15/22) ?F33.9 - Major depressive disorder, recurrent, unspecified (ICD-10) Coronary artery disease involving little traverse coronary artery without angina pectoris (02/03/15) ?I25.10 - Atherosclerotic heart disease of little traverse coronary artery without angina pectoris (ICD-10) Chronic atrial fibrillation (03/13/25) ?I48.20 - Chronic atrial fibrillation, unspecified (ICD-10) Atrial fibrillation with RVR (05/03/13) ?I48.91 - Unspecified atrial fibrillation (ICD-10) Adjustment disorder with depressed mood (02/16/10) ?F43.21 - Adjustment disorder with depressed mood (ICD-10) Bilateral primary osteoarthritis of knee ?M17.0 - Bilateral primary osteoarthritis of knee (ICD-10) Morbid obesity with BMI of 40.0-44.9, adult ?E66.01 - Morbid (severe) obesity due to excess calories (ICD-10) ?Z68.41 - Body mass index [BMI] 40.0-44.9, adult (ICD-10) Seizures ?R56.9 - Unspecified convulsions (ICD-10) Elevated cholesterol ?E78.00 - Pure hypercholesterolemia, unspecified (ICD-10) Arthritis ?M19.90 - Unspecified osteoarthritis, unspecified site (ICD-10) Hypertension ?I10 - Essential (primary) hypertension (ICD-10) Heart attack ?I21.9 - Acute myocardial infarction, unspecified (ICD-10) Surgical History (Updated 03/25/25 @ 23:00 by Adelina Mckenzie MD) Status post lumbar surgery ?Z98.890 - Other specified postprocedural states (ICD-10) S/P colonoscopy with polypectomy (07/31/15) ?Z98.890 - Other specified postprocedural states (ICD-10) History of gastric bypass (03/02/23) ?Z98.84 - Bariatric surgery status (ICD-10) H/O bariatric surgery ?Z98.84 - Bariatric surgery status (ICD-10) Social History (Updated 03/25/25 @ 20:28 by Adelina Mckenzie MD) Narrative: Denies tobacco, alcohol, or recreational drug use. What is your current living situation?: I presently have a place to live Problems where you live: no known problems Problems where you live details: None reported In the past 12 months, utilities in danger of being shut off: no In past 12 months, lack of transportation kept you from medical appts, meetings, work, or getting things needed for daily living: no In the past 12 mos, have been you worried that your food would run out before you had money to buy more?: never true In the past 12 mos, the food you bought just didn't last and you didn't have money to buy more?: never true Highest level of school completed/degree received: some college, no degree Smoking Status: Never smoker Do you use any of these nicotine containing products: None How often do you have a drink containing alcohol: never AUDIT-C Alcohol total score: 0 Non-prescribed substance use: denies use Caffeine: No How often does anyone, including family, friends and others, physically hurt you: never How often does anyone, including family, friends and others, insult or talk down to you: never How often does anyone, including family, friends and others, threaten you with harm: never How often does anyone, including family, friends and others, scream or curse at you: never service: No Meds Home Medications and Allergies Home Medications ?Medication ?Instructions ?Recorded ?Confirmed ?Type albuterol sulfate 90 mcg/actuation 2 puff inhalation Q6H PRN 07/03/22 03/25/25 History aerosol inhaler apixaban 5 mg tablet (Eliquis) 5 mg PO BID 07/03/22 03/25/25 History cholecalciferol (vitamin D3) 125 5,000 unit PO QDAY 07/03/22 03/25/25 History mcg (5,000 unit) tablet citalopram 40 mg tablet 40 mg PO QDAY 07/03/22 03/25/25 History fluticasone 250 mcg-salmeterol 50 1 inh inhalation Q12H PRN 07/03/22 03/25/25 History mcg/dose blistr powdr for inhalation (Advair Diskus) levetiracetam 750 mg tablet 1,500 mg PO Q12H 07/03/22 03/25/25 History lisinopril 20 1 tab PO QDAY 07/03/22 03/25/25 History mg-hydrochlorothiazide 12.5 mg tablet metformin 500 mg tablet,extended 1,000 mg PO QDAY 07/03/22 03/25/25 History release 24 hr multivitamin-ferrous 1 tab PO Q24H 07/03/22 03/25/25 History fumarate-folic acid 18 mg-400 mcg tablet (Certavite-Antioxidant) nitroglycerin 0.4 mg sublingual 0.4 mg sublingual Q5M PRN 07/03/22 03/25/25 History tablet ciclopirox 8 % topical solution topical QPM 03/17/25 History cyclobenzaprine 10 mg tablet 10 mg PO 3XD 03/17/25 03/25/25 History hydromorphone 4 mg tablet mg PO 03/17/25 History metoprolol succinate 25 mg 25 mg PO DAILY 03/17/25 03/25/25 History tablet,extended release 24 hr rosuvastatin 20 mg tablet 10 mg PO QPM 03/17/25 03/25/25 History semaglutide (weight loss) 2.4 2.4 mg subcut Q7D 03/17/25 03/25/25 History mg/0.75 mL subcutaneous pen injector (Wegovy) Allergies Allergy/AdvReac Type Severity Reaction Status Date / Time Penicillins Allergy Intermediate hives Verified 03/25/25 13:57 Exam Narrative: Exam Narrative: General: No acute distress. Awake alert oriented to self and place, but not day or time. Initially had some trouble with the details of her situation, but slowly was able to recall some of them. No word-finding difficulties. HEENT: Normocephalic atraumatic, pupils equally round and reactive to light and accommodation. Oropharynx clear. Mucous membranes are moist. No cervical lymphadenopathy, thyromegaly or carotid bruits. No JVD. Cardiovascular: Regular rate and rhythm. No murmurs, gallops, or rubs. Chest: No increased work of breathing. Clear to auscultation bilaterally. No crackles or wheezes. Abdomen: Bowel sounds present. Low midline abdominal incision still has Steri-Strips, it is clean, dry, and intact and without erythema or induration. Soft, nondistended, nontender. No hepatosplenomegaly or masses. Back: Two lumbar paraspinous incisions that are clean, dry, and intact, without drainage, erythema or induration. Nontender to palpation. Extremities: No edema, no cyanosis or clubbing. Tender to palpation over the anterior right ankle, no deformity or ecchymosis or abrasion. Skin: No jaundice, no pallor, no rashes. Neuro: Altered mental status noted as above, there are no focal deficits. Romberg is negative. Cranial nerves 2-12 are intact. Extraocular movements are full. No nystagmus. No facial asymmetry. Tongue is midline. Peripheral vision and vision are grossly intact. Strength is 5/5 in all 4 extremities. Light touch sensation is intact in face body and extremities. Coordination is intact in upper and lower extremities. Const: Vital Signs, click to edit/add: Vital Signs - 24 hr 03/25/25 13:41 03/25/25 15:55 03/25/25 16:44 Temperature 98.5 F Pulse Rate 100 123 H Pulse Rate [Pulse Oximeter] 96 Pulse Rate [Right Pulse Oximeter] Respiratory Rate 18 16 42 H Blood Pressure 151/92 H Blood Pressure [Le ft Arm] Blood Pressure [Ri ght Upper Arm] 110/82 Pulse Oximetry 95 97 100 Oxygen Delivery [facility] Room Air Room Air 03/25/25 16:45 03/25/25 16:49 03/25/25 17:00 Temperature Pulse Rate 122 H 124 H 110 H Pulse Rate [Pulse Oximeter] Pulse Rate [Right Pulse Oximeter] Respiratory Rate 30 H 25 H 37 H Blood Pressure 158/104 H Blood Pressure [Le ft Arm] Blood Pressure [Ri ght Upper Arm] Pulse Oximetry 99 99 [facility] 03[facility] 17:15 03/25/25 17:30 03/25/25 17:32 Temperature Pulse Rate 105 H 104 H 103 H Pulse Rate [Pulse Oximeter] Pulse Rate [Right Pulse Oximeter] Respiratory Rate 13 21 19 Blood Pressure 139/79 Blood Pressure [Le ft Arm] Blood Pressure [Ri ght Upper Arm] Pulse Oximetry 100 97 98 Oxygen Delivery Me thod 03/25/25 17:51 03/25/25 18:00 03/25/25 18:02 Temperature Pulse Rate 98 100 101 H Pulse Rate [Pulse Oximeter] Pulse Rate [Right Pulse Oximeter] Respiratory Rate 12 12 24 Blood Pressure 133/86 Blood Pressure [Le ft Arm] Blood Pressure [Ri ght Upper Arm] Pulse Oximetry 93 94 94 Oxygen Delivery Me thod 03/25/25 18:15 03/25/25 18:30 Temperature 100.6 F H Pulse Rate 101 H Pulse Rate [Pulse Oximeter] Pulse Rate [Right Pulse Oximeter] 94 Respiratory Rate 13 16 Blood Pressure Blood Pressure [Le ft Arm] 123/80 Blood Pressure [Ri ght Upper Arm] Pulse Oximetry 95 98 Oxygen Delivery Me thod Room Air Hospitalist - H&P: Result Labs Labs: Short CBC 03/25/25 Range/Units 15:12 WBC 19.74 H (4.50-11.00) K/uL Hgb 11.2 L (12.0-16.0) gm/dL Hct 34.9 (33.0-51.0) % Plt Count 415 (140-440) K/uL BMP 03/25/25 15:12 Sodium 133 L Potassium 4.8 Chloride 101 Carbon Dioxide 27 BUN 13 Creatinine 0.6 Glucose 110 Calcium 9.2 Urine 03/25/25 Range/Units 15:30 Urine Color Yellow (Yellow) Urine Appearance Clear (Clear) Urine pH 6.5 (5.0-8.5) Ur Specific [place] 1.020 (1.000-1.030) Urine Protein 1+ A (Negative) Urine Glucose (UA) Negative (Negative) 03/25/2025 EKG: Normal sinus rhythm, 90 beats per minute, left axis deviation, nonspecific ST wave abnormality. Ordering Physician: Bismark Hernandez M.D. Date of Service: 03/25/25 Procedure(s): XR chest 1V Accession Number(s): [id number] cc: Harvey Ely PA-C; Bismark Hernandez M.D.~ For Patients: As a result of the Cures Act, medical imaging exams and procedure reports are released immediately into your electronic medical record. You may view this report before your referring provider. If you have questions, please contact your health care provider. INDICATION: Recurrent seizure. TECHNIQUE: Chest 1 views. COMPARISON: None. FINDINGS: Cardiovasculature and mediastinum: Heart size is normal. Unremarkable mediastinum. Lungs and pleural spaces: Lungs are clear. No sign of infiltrate or mass. No sign of pleural effusion. No pneumothorax. Bones and soft tissues: No significant findings. IMPRESSION: Negative chest. Dictated by Ry Moreno MD @ 03/25/2025 6:17:49 PM (Electronically Signed) Ordering Physician: Bismark Hernandez M.D. Date of Service: 03/25/25 Procedure(s): CT head/brain wo con Accession Number(s): [id number] cc: Harvey Ely PA-C; Bismark Hernandez M.D.~ For Patients: As a result of the Cures Act, medical imaging exams and procedure reports are released immediately into your electronic medical record. You may view this report before your referring provider. If you have questions, please contact your health care provider. INDICATION: Recurrent seizure TECHNIQUE: Noncontrast axial CT of the head. Coronal and sagittal reformats. Bone and soft tissue algorithms. COMPARISON: CT head 03/17/2025 FINDINGS: There is artifact from patient motion, degrading image quality. No acute intracranial hemorrhage or abnormal extra-axial fluid collection identified. Small hypoattenuating focus within the subcortical right frontal lobe white matter likely represents a prominent perivascular space versus chronic lacunar infarct, stable. Salazar-white matter differentiation is preserved. No midline shift, hydrocephalus or herniation. Hyperostosis frontalis interna. Suspect small secretions within the bilateral maxillary sinuses. No mastoid effusion. Unremarkable obscured orbits. IMPRESSION: 1. Motion degraded exam, without evidence of acute intracranial abnormality or significant interval change relative to 03/17/2025. Please note that all CT scans at this facility use dose modulation, iterative reconstruction, and/or weight-based dosing when appropriate to reduce radiation dose to as low as reasonably achievable. Dictated by Marycarmen Calvillo MD @ 03/25/2025 6:16:55 PM (Electronically Signed)
[2025-03-25] MEDS: MEROPENEM 1 GM in 0.9 % SODIUM CHLORIDE Mini-bag 100 ML IVPB (20:29)
[2025-03-25] MEDS: 0.9 % SODIUM CHLORIDE 250 ml IV (20:30)
[2025-03-25 20:41] LABS: Procalcitonin* 0.05 ng/mL (<0.50)
[2025-03-25] MEDS: levETIRAcetam 500 MG TABLET 1500 MG PO (21:18)
[2025-03-25] MEDS: APIXABAN 5 MG TABLET PO (21:18)
[2025-03-25] MEDS: HYDROmorphone 2 MG TABLET 4 MG PO (21:18)
[2025-03-25] MEDS: CITALOPRAM HYDROBROMIDE 20 MG TABLET 40 MG PO (21:18)
[2025-03-25] MEDS: METFORMIN ER 500 MG 1000 MG PO (21:22)
[2025-03-25] MEDS: VANCOMYCIN 2 GM/400 ML 2 GM/400 ML PIGGYBACK IVPB (21:53)
[2025-03-25] MEDS: ACETAMINOPHEN 325 MG TABLET 650 MG PO (22:15)
--- NOTE | 2025-03-25 22:47 | CRLHL7_ITS ---
For Patients: As a result of the Century Cures Act, medical imaging exams and procedure reports are released immediately into your electronic medical record. You may view this report before your referring provider. If you have questions, please contact your health care provider. INDICATION: Fall, right ankle pain TECHNIQUE: Ankle radiograph 3 views right COMPARISON: None FINDINGS: Bone: No acute fractures or aggressive bone lesions are identified. Linear ossific density measuring 7 mm is seen adjacent to the lateral malleolus. There is a moderate plantar calcaneal spur and a moderate posterosuperior enthesophyte present. Joint: Mild osteoarthritis of the ankle joint and visualized midtarsal joints are noted. No significant ankle effusion is seen. Soft tissue: Overlying fabric artifacts moderately degrade the evaluation of the soft tissues and osseous structures of the midfoot. No radiopaque foreign bodies are seen. IMPRESSION: 1. Linear ossific density measuring 7 mm is seen adjacent to the lateral malleolus. Correlation with physical exam for focal tenderness in this region is recommended to exclude an avulsion fracture fragment. Dictated by Connor Conway MD @ 03/25/2025 11:32:41 PM Dictated by: oCnnor Conway MD @ 03/25/2025 23:32:45 (Electronically Signed)
--- NOTE | 2025-03-25 23:02 | PC.NURSE ---
Patient arrived via cart from ED and transferred to the bed via stand to pivot. Mentation is very much altered and has not improved as of yet. Impaired recent memory retention, trouble word finding, and impaired decision making. I worked through a lot of the admission documents as best I could but I did not feel that she was in an acceptable state of mind to sign any of our documents. She was however in a cooperative mood and requested her medications and is agreeable to treatment. On continuous oximetry. No O2 needed at this time. Telemetry in place. NSR. Two urinations this shift. Stand to pivot to commode recommended. IV on left hand behind thumb replaced with another IV in the evening before an ordered dose of Vanco was to be given. Fever found on initial assessment. Lab values indicate infection. Incision sites on back and abdomen appear normal. Right ankle is sensitive and painful to palpitation. Later expressed significant back pain. Her throat feels painful with swallowing.?The patient did not yet appear to be in a medically stable state at the end of my shift but did not appear to be declining. Care for this patient provided in tandem with preceptor Radha. ?
[2025-03-26] VITALS (9 sets, daily range): BP systolic 96–140; BP diastolic 55–89; PULSE 77–86; RESP 16–18; TEMP 36.7–37.5; O2SAT 92–100
[2025-03-26] MEDS: HYDROmorphone 2 MG TABLET 4 MG PO (04:08)
[2025-03-26] MEDS: MEROPENEM 1 GM in 0.9 % SODIUM CHLORIDE Mini-bag 100 ML IVPB (04:09)
--- NOTE | 2025-03-26 04:27 | PC.NURSE ---
Pt is speaking with clarity and feels that her cognition is back to baseline. Pt up A1 with a walker to BR and voiding. Pain in right lower extremity (Knee and ankle). Pt thinks this pain is from her fall. Afebrile all night. VS unremarkable. Pleasant and cooperative. Right leg does not appear to have any bruising.
[2025-03-26 06:24] LABS: Basophils Percent Auto 0.2 % (0.0-3.0); Eosinophils Percent Auto 0.6 % (0.0-7.0); Hematocrit 32.5 % (33.0-51.0); Hemoglobin* 10.3 gm/dL (12.0-16.0); Immature Granulocytes Pct Auto 0.6 %; Lymphocytes Percent Auto 13.4 % (20-44); Mean Corpuscular HGB Conc 32 gm/dL (32-36); Mean Corpuscular Hemoglobin 28 pg (26-34); Mean Corpuscular Volume 87 fL (80-100); Monocytes Percent Auto 8.5 % (0.0-11.0); Neutrophils Percent Auto 76.7 % (42.0-72.0); Platelet Count* 455 K/uL (140-440); Red Blood Count 3.75 m/uL (4.00-5.20); White Blood Count* 14.04 K/uL (4.50-11.00)
[2025-03-26 06:30] LABS: Slide Review Reflex No
[2025-03-26 06:36] LABS: Albumin* 3.2 g/dL (3.3-5.0); Chloride* 105 mmol/L (96-114); Potassium* 3.4 mmol/L (3.6-5.1); Sodium* 135 mmol/L (135-149)
[2025-03-26 06:39] LABS: Alanine Aminotransferase* 12 U/L (4-35); Alkaline Phosphatase* 91 U/L (40-150); Anion Gap 5 mEq/L (7-15); Aspartate Amino Transferase* 23 U/L (12-35); Bilirubin Total* 0.5 mg/dL (0.1-1.5); Blood Urea Nitrogen* 9 mg/dL (7-30); Carbon Dioxide* 25 mmol/L (20-32); Creatinine* 0.6 mg/dL (0.5-1.5); Est. Creatinine Clearance* 49.12; Estimated Glomerular Filt Rate 98 ml/min
[2025-03-26 06:40] LABS: Calcium* 8.7 mg/dL (8.4-10.6); Glucose* 100 mg/dL (60-115)
[2025-03-26 06:42] LABS: C Reactive Protein* 2.6 mg/dL (0.5-1.0)
[2025-03-26] MEDS: levETIRAcetam 500 MG TABLET 1500 MG PO ×2 (08:51→20:26)
[2025-03-26] MEDS: hydroCHLOROthiazide 12.5 MG CAPSULE PO (08:51)
[2025-03-26] MEDS: lisinopriL 20 MG TABLET PO (08:51)
[2025-03-26] MEDS: APIXABAN 5 MG TABLET PO ×2 (08:51→20:27)
[2025-03-26] MEDS: POTASSIUM BICARB 25 MEQ EFFERVESCENT TAB PO (08:51)
[2025-03-26] MEDS: HYDROmorphone 2 MG TABLET PO (08:52)
[2025-03-26] MEDS: METOPROLOL SUCCINATE (XL) 25 MG TAB PO (08:52)
[2025-03-26] MEDS: DIVALPROEX SODIUM 125 MG CAP.DR.SPR 500 MG PO ×2 (08:52→20:26)
[2025-03-26] MEDS: CITALOPRAM HYDROBROMIDE 20 MG TABLET 40 MG PO (08:52)
[2025-03-26] MEDS: SODIUM CHLORIDE 0.9 % (FLUSH) 10 ML SYRINGE 5 ML IVF ×2 (08:57→20:27)
[2025-03-26] MEDS: VANCOMYCIN 1.5 GM/300 ML 1.5 GM/300 ML PIGGYBACK IVPB (10:09)
--- NOTE | 2025-03-26 10:09 | CRLHL7_ITS ---
For Patients: As a result of the Cures Act, medical imaging exams and procedure reports are released immediately into your electronic medical record. You may view this report before your referring provider. If you have questions, please contact your health care provider. Indication: Knee pain Technique: Left knee 3 views Comparison: None Findings: Medial compartment narrowing and spurring. No fracture. Joint effusion. Patellofemoral spurring. Impression: No sign of acute fracture. Degenerative joint disease. Joint effusion. Dictated by Bismark Parks MD @ 03/26/2025 11:10:20 AM (Electronically Signed)
--- NOTE | 2025-03-26 12:26 | P.IMPN_ITS ---
Assessment and Plan Assessment and plan (1) Altered mental status: Problem comment: Patient has intermittent or hit and miss forgetfulness. For example she could not tell me whether she lived in [place] or [place] or where she had her back surgery. She also had poor memory of events around her seizure which was expected. - Appears to be combination of post ictal and antiseizure medication, possibly also dilaudid affect. - Admit for observation, q4h neuro checks Status: Acute (2) Recurrent seizures: Problem comment: History of seizures occurring when she forgets to take her Keppra. Now with recent fever and possible noncompliance. Observed seizure yesterday. Started on Depakote along with Keppra. Status: Acute (3) Fever: Problem comment: This is a new finding, was not present in ER. She also has an elevated WBC. Patient has no clear signs or symptoms of infection. No obvious signs or symptoms specifically of infection from spine surgery or wound infection. Stop antibiotics and observe. Status: Acute (4) Status post lumbar surgery: Problem comment: - 03/13/25 - one abdominal and 2 lumbar incisions. Recovering without apparent complications. Discussed with Dr. Cm March 26. He indicates they have a follow-up appointment Status: Acute (5) Hypotension: Problem comment: Had postoperative hypotension and blood pressure medicines were held after surgery. Blood pressure is a little low today so will hold lisinopril and hydrochlorothiazide today again Status: Acute (6) Obstructive sleep apnea: Problem comment: Is not using home CPAP Status: Acute Plan Continue in hospital for another day of observation of altered mental status, seizures, fever. Ongoing assessment of her ability to safely function at home independently. She understands that she also cannot drive due to her seizures pending followup with her neurologist Total Time Spent Total Time Spent: Total time spent today is 60 minutes in reviewing outside records, coordination of care and discussing with patient and other providers ongoing evaluation management of altered mental status, epilepsy, fever, recovery from back surgery. Subjective Date Seen: 03/26/25 Interval history: Amber Childers is a 69 year old female with a history of epilepsy, chronic anticoagulation for AFib, asthma, GERD, obesity, hypertension, coronary artery disease, impaired fasting glucose, and migraine headache who presented through the emergency department today for concerns of seizures. I also spoke with her daughter, Elis [phone], over the phone this evening who also gave me some history. Gabriela has a long history of back pain for which she has been on Flexeril for almost a year more, and she started having acute back pain near the end of January and beginning of February. There is an ER note I think it is from [place] in the care everywhere section of the [facility] record from the beginning of February that noted she is on Flexeril and Skelaxin. To Mike's daughter tells me that she also started oral dilaudid sometime in February for back pain and then underwent lumbar spine surgery on 03/13/2025. Since then she has continued to use Dilaudid 4 mg p.o. every 6 hours. Her daughter thinks that maybe Gabriela has been using it more often than that and because of the sedative affect, has probably for gotten to take her anti seizure medication. Elis told me that in the last 5 years the handful of seizures Gabriela has had have all been due to forgetting to take her Keppra. Amber told me she is also been taking some lorazepam, but was unable to tell me how much or how often and did even know if she was taking it every day. I could not find any evidence of a recent prescription for lorazepam. Elis said that Gabriela has lorazepam from a long time ago that she still will take on occasion. When I expressed surprise that she was still taking that much Dilaudid this far out from surgery, she did tell me that she started to try to cut down on these medications yesterday, which she thinks is why the seizures started. On 03/17/2025 matthew castro came to our emergency department with word-finding difficulty and confusion. She then saw her neurologist yesterday who thought she should have an outpatient EEG. This morning Gabriela got up at some point and then found herself waking up on the floor without any memory of how she got there. She was very weak and could not get up from the floor so she crawled over to a chair and sat there for about an hour. Eventually her personal development mentor came to the house and, upon hearing what had happened, called EMS. In the emergency department today she had a witnessed 30 second tonic clonic seizure with some postictal findings as well. The ER doc spoke with the [place] epilepsy group who recommended cov ering with a 2nd agent, Depakote, and outpatient EEG. She was given extra dose of Keppra IV, an oral dose of Depakote, and Valium for the seizure. She remains postictal, but was starting to have some improvement while I was talking with her. She denies any recent illness, fevers or chills. 03/26/2025: Amber is more alert and interactive. She has it and intermittent forgetfulness about past medical history and recent events. She tells me she has had hatch mal seizures since he was 10 years old. She thinks she has only had 2 seizures in the last year and a half until yesterday. She tells me she has been taking her Keppra as prescribed in that she does not think she has missed any doses. At the same time she has been taking regular dilaudid since her surgery on March 13 and does report some confusion and sedation from this. She is not aware of any fever. She reports her back pain is getting better. When I see her today she is most concerned about right knee pain. She has valeriy re bilateral knee osteoarthritis and has been told he needs both knees replaced. She has also fallen on her right knee probably when she had her seizure. I reviewed [employer] records showing that she had a prescription for lorazepam for 10 1 mg tablets on 03/26/2024, 1 year ago. None since then. She has had hydromorphone 4 mg prescribed 4 times in the last month, 7 tablets on 02/14/2020 tablets on 03/13/2010 tablets on March 16 and 28 tablets on March 19. She tells me she has been taking it every 6 hours but yesterday was going to cut down to 3 times a day. She reports otherwise feeling well and having no other concerns. Exam Narrative: Exam Narrative: She is alert cooperative and appears in no distress. Her speech is fluent. There is no facial asymmetry. Oropharynx with small airway. Neck is supple without mass or adenopathy. Respirations are clear to auscultation. Ca rdiovascular: S1, S2, regular rate and rhythm. Abdomen: Bowel sounds active. Abdomen is soft without tenderness or mass. Her abdominal incision for her back surgery is well healing there is some maceration of the skin under her abdominal pannus but no significant erythema or drainage. Her lower back incisions are also healing nicely without erythema or drainage. Lower extremities have intact pulses and sensation. She moves all 4 extremities well. Const: Vital Signs, click to edit/add: Vital Signs - 24 hr 03/25/25 13:41 03/25/25 15:55 03/25/25 16:44 Temperature 98.5 F Pulse Rate 100 123 H Pulse Rate [Pulse Oximeter] 96 Pulse Rate [Right Pulse Oximeter] Respiratory Rate 18 16 42 H Blood Pressure 151/92 H Blood Pressure [Le ft Arm] Blood Pressure [Ri ght Upper Arm] 110/82 Pulse Oximetry 95 97 [facility] Room Air 03/25/25 16:45 03/25/25 16:49 03/25/25 17:00 Temperature Pulse Rate 122 H 124 H 110 H Pulse Rate [Pulse Oximeter] Pulse Rate [Right Pulse Oximeter] Respiratory Rate 30 H 25 H 37 H Blood Pressure 158/104 H Blood Pressure [Le ft Arm] Blood Pressure [Ri ght Upper Arm] Pulse Oximetry 99 99 98 [facility] 03/25/25 17:15 03/25/25 17:30 03/25/25 17:32 Temperature Pulse Rate 105 H 104 H 103 H Pulse Rate [Pulse Oximeter] Pulse Rate [Right Pulse Oximeter] Respiratory Rate 13 21 19 Blood Pressure 139/79 Blood Pressure [Le ft Arm] Blood Pressure [Ri ght Upper Arm] Pulse Oximetry 100 97 98 [facility] 03/25/25 17:51 03/25/25 18:00 03/25/25 18:02 Temperature Pulse Rate 98 100 101 H Pulse Rate [Pulse Oximeter] Pulse Rate [Right Pulse Oximeter] Respiratory Rate 12 12 24 Blood Pressure 133/86 Blood Pressure [Le ft Arm] Blood Pressure [Ri ght Upper Arm] Pulse Oximetry 93 94 94 [facility] 03/25/25 18:15 03/25/25 18:30 03/25/25 18:30 Temperature 100.6 F H 100.6 F H Pulse Rate 101 H Pulse Rate [Pulse Oximeter] Pulse Rate [Right Pulse Oximeter] 94 94 Respiratory Rate 13 16 16 Blood Pressure Blood Pressure [Le ft Arm] 123/80 123/80 Blood Pressure [Ri ght Upper Arm] Pulse Oximetry 95 98 98 [facility] Room Air 03/25/25 20:08 03/25/25 22:33 03/25/25 22:53 Temperature Pulse Rate 92 99 Pulse Rate [Pulse Oximeter] Pulse Rate [Right Pulse Oximeter] Respiratory Rate Blood Pressure Blood Pressure [Le ft Arm] Blood Pressure [Ri ght Upper Arm] Pulse Oximetry 94 Oxygen Delivery Me thod 03/25/25 22:59 03/25/25 23:04 03/25/25 23:38 Temperature 98.7 F 98.7 F Pulse Rate Pulse Rate [Pulse Oximeter] Pulse Rate [Right Pulse Oximeter] 96 Respiratory Rate 16 Blood Pressure Blood Pressure [Le ft Arm] 110/74 Blood Pressure [Ri ght Upper Arm] Pulse Oximetry 97 97 Oxygen Delivery Me od Room Air 03/25/25 23:40 03/26/25 04:19 03/26/25 07:14 Temperature 99 F Pulse Rate 86 Pulse Rate [Pulse Oximeter] Pulse Rate [Right Pulse Oximeter] 96 81 Respiratory Rate 16 16 Blood Pressure Blood Pressure [Le ft Arm] 140/89 H Blood Pressure [Ri ght Upper Arm] Pulse Oximetry 100 [facility] 03/26/25 07:40 03/26/25 07:40 03/26/25 07:40 Temperature 98.0 F Pulse Rate Pulse Rate [Pulse Oximeter] Pulse Rate [Right Pulse Oximeter] 86 86 Respiratory Rate 16 18 Blood Pressure Blood Pressure [Le ft Arm] 113/61 Blood Pressure [Ri ght Upper Arm] Pulse Oximetry 96 96 [facility] 03/26/25 11:49 Temperature 98.1 F Pulse Rate Pulse Rate [Pulse Oximeter] Pulse Rate [Right Pulse Oximeter] 80 Respiratory Rate 18 Blood Pressure Blood Pressure [Le ft Arm] 103/56 L Blood Pressure [Ri ght Upper Arm] Pulse Oximetry 92 [facility] Labs Labs: Laboratory Results - last 24 hr 03/25/25 03/25/25 03/25/25 15:12 15:30 17:54 WBC 19.74 H RBC 4.06 Hgb 11.2 L Hct 34.9 MCV 86 MCH 28 MCHC 32 RDW Coeff of Pritesh 13.0 Plt Count 415 Neut % (Auto) 87.3 H Lymph % (Auto) 6.7 L [place] % (Auto) 4.9 Eos % (Auto) 0.1 Baso % (Auto) 0.2 Neut # (Auto) 17.20 H Lymph # (Auto) 1.30 [place] # (Auto) 1.00 H Eos # (Auto) 0.00 Baso # (Auto) 0.00 Abs Immat Gran (auto) 0.20 Imm/Tot Granulo (auto) 0.8 Sodium 133 L Potassium 4.8 Chloride 101 Carbon Dioxide 27 Anion Gap 5 L BUN 13 Creatinine 0.6 Estimated Creat Clear 49.12 Estimated GFR 98 Glucose 110 Lactate 1.3 Calcium 9.2 Total Bilirubin AST ALT Alkaline Phosphatase C-Reactive Protein 1.1 H Total Protein Albumin Procalcitonin Urine Color Yellow Urine Appearance Clear Urine pH 6.5 Ur Specific [place] 1.020 Urine Protein 1+ A Urine Glucose (UA) Negative Urine Ketones 2+ A Urine Blood Negative Urine Nitrite Negative Urine Bilirubin Negative Urine Urobilinogen 0.2 Ur Leukocyte Esterase 1+ A Urine RBC 0-2 Urine WBC 5-10 A Ur Squamous Epith Cells Many A Urine Bacteria Few A Lab Acknowledgement Test Added 03/25/25 03/26/25 Unknown 05:45 WBC 14.04 H RBC 3.75 L Hgb 10.3 L Hct 32.5 L MCV 87 MCH 28 MCHC 32 RDW Coeff of Pritesh 13.0 Plt Count 455 H Neut % (Auto) 76.7 H Lymph % (Auto) 13.4 L [place] % (Auto) 8.5 Eos % (Auto) 0.6 Baso % (Auto) 0.2 Neut # (Auto) 10.80 H Lymph # (Auto) 1.90 [place] # (Auto) 1.20 H Eos # (Auto) 0.10 Baso # (Auto) 0.00 Abs Immat Gran (auto) 0.10 Imm/Tot Granulo (auto) 0.6 Sodium 135 Potassium 3.4 L Chloride 105 Carbon Dioxide 25 Anion Gap 5 L BUN 9 Creatinine 0.6 Estimated Creat Clear 49.12 Estimated GFR 98 Glucose 100 Lactate Calcium 8.7 Total Bilirubin 0.5 AST 23 ALT 12 Alkaline Phosphatase 91 C-Reactive Protein 2.6 H Total Protein 6.0 Albumin 3.2 L Procalcitonin 0.05 Urine Color Urine Appearance Urine pH Ur Specific [place] Urine Protein Urine Glucose (UA) Urine Ketones Urine Blood Urine Nitrite Urine Bilirubin Urine Urobilinogen Ur Leukocyte Esterase Urine RBC Urine WBC Ur Squamous Epith Cells Urine Bacteria Lab Acknowledgement
[2025-03-26] MEDS: ROSUVASTATIN CALCIUM 10 MG TABLET PO (17:58)
--- NOTE | 2025-03-26 18:25 | PC.NURSE ---
end of shift/ pt is alert x2 she is forgetful and repeats alot of information, she complained of right knee pain and back pain, she got po Dilaudid this am. later she said no pain in bed. Pt up A1 with a walker to BR and voiding. SL is patent x2. she is eating, drinking and voiding. bed and chair alarm are on.
[2025-03-27 02:28] VITALS: BP 122/68; PULSE 80; RESP 18; TEMP 37.3; O2SAT 95
--- NOTE | 2025-03-27 06:02 | PC.NURSE ---
Shift note: Patient has been in the recliner most of the night. Alert and oriented but appears to have short term memory loss. No seizure episode noted tonight. Incision at the back appeared clean and dry. Patient reported chronic bilateral knee pain worse at the right knee. Bp run soft, however, it has been within the normal range.
[2025-03-27 07:00] VITALS: PULSE 80; RESP 18; O2SAT 94
[2025-03-27 07:31] LABS: Basophils Percent Auto 0.4 % (0.0-3.0); Eosinophils Percent Auto 2.5 % (0.0-7.0); Hematocrit 35.3 % (33.0-51.0); Hemoglobin* 11.1 gm/dL (12.0-16.0); Immature Granulocytes Pct Auto 0.5 %; Lymphocytes Percent Auto 24.9 % (20-44); Mean Corpuscular HGB Conc 31 gm/dL (32-36); Mean Corpuscular Hemoglobin 27 pg (26-34); Mean Corpuscular Volume 87 fL (80-100); Monocytes Percent Auto 8.5 % (0.0-11.0); Neutrophils Percent Auto 63.2 % (42.0-72.0); Platelet Count* 502 K/uL (140-440); RDW Coefficient of Variation % 13.2 % (11.5-15.5); Red Blood Count 4.06 m/uL (4.00-5.20); White Blood Count* 11.28 K/uL (4.50-11.00)
[2025-03-27 07:43] LABS: Slide Review Reflex No
[2025-03-27 07:46] LABS: Chloride* 103 mmol/L (96-114); Potassium* 3.8 mmol/L (3.6-5.1); Sodium* 137 mmol/L (135-149)
[2025-03-27 07:49] LABS: Anion Gap 7 mEq/L (7-15); Blood Urea Nitrogen* 9 mg/dL (7-30); Carbon Dioxide* 27 mmol/L (20-32); Creatinine* 0.7 mg/dL (0.5-1.5); Est. Creatinine Clearance* 49.12; Estimated Glomerular Filt Rate 95 ml/min
[2025-03-27 07:50] LABS: Calcium* 9.1 mg/dL (8.4-10.6); Glucose* 107 mg/dL (60-115)
[2025-03-27 08:00] VITALS: BP 113/74; PULSE 80; RESP 18; TEMP 36.5; O2SAT 94
[2025-03-27] MEDS: APIXABAN 5 MG TABLET PO (09:13)
[2025-03-27] MEDS: METFORMIN ER 500 MG 1000 MG PO (09:13)
[2025-03-27] MEDS: levETIRAcetam 500 MG TABLET 1500 MG PO (09:13)
[2025-03-27] MEDS: CITALOPRAM HYDROBROMIDE 20 MG TABLET 40 MG PO (09:13)
[2025-03-27] MEDS: DIVALPROEX SODIUM 125 MG CAP.DR.SPR 500 MG PO (09:14)
[2025-03-27] MEDS: SODIUM CHLORIDE 0.9 % (FLUSH) 10 ML SYRINGE 5 ML IVF (09:14)
[2025-03-27] MEDS: METOPROLOL SUCCINATE (XL) 25 MG TAB PO (09:14)
[2025-03-27 11:00] VITALS: BP 102/65; PULSE 75; RESP 18; TEMP 37.1; O2SAT 96
--- NOTE | 2025-03-27 14:18 | P.DS_ITS ---
DS: Providers Provider Date Seen: 03/27/25 Date of admission: 03/25/25 18:35 Primary care physician: Harvey Ely PA-C Admitting Clinician: Adelina Mckenzie MD Date of Discharge: 03/27/25 DS: Diagnosis Discharge Diagnosis (1) Altered mental status: Status: Acute Problem details: Patient has intermittent or hit and miss forgetfulness. For example she could not tell me whether she lived in [place] or [place] or where she had her back surgery. She also had poor memory of events around her seizure which was expected. This resolved on the day of discharge when she appeared to have normal mental status and normal recall of recent events. - Appears to be combination of post ictal and antiseizure medication, possibly also dilaudid affect. - Admit for observation, q4h neuro checks (2) Recurrent seizures: Status: Acute Problem details: History of seizures occurring when she forgets to take her Keppra. Now with recent fever and possible noncompliance. Observed seizure yesterday. Started on Depakote along with Keppra. No recurrent seizures. Needs outpatient follow- up with her neurologist (3) Fever: Status: Acute Problem details: This is a new finding, was not present in ER. She also has an elevated WBC and CRP. Patient has no clear signs or symptoms of infection. No obvious signs or symptoms specifically of infection from spine surgery or wound infection. Stop antibiotics and observe. At discharge: No further fever. CRP is elevated at 4.0. White count is better, 11.3 compared to 19.7 on admission (4) Status post lumbar surgery: Status: Acute Problem details: - 03/13/25 - one abdominal and 2 lumbar incisions. Incisions have appeared clean and dry without erythema. Back pain has largely resolved. Recovering without apparent complications. Discussed with Dr. Cm March 26. He indicates they have a follow-up appointment. (5) Hypotension: Status: Acute Problem details: Had postoperative hypotension and blood pressure medicines were held after surgery. Blood pressure is a little low today so will hold lisinopril and hydrochlorothiazide pending outpatient followup with primary care (6) Obstructive sleep apnea: Status: Acute Problem details: Is not using home CPAP DS: Summary Hospital Course Hospital Course: Amber Childers is a 69 year old female with a history of epilepsy, chronic anticoagulation for AFib, asthma, GERD, obesity, hypertension, coronary artery disease, impaired fasting glucose, and migraine headache who presented through the emergency department today for concerns of seizures. I also spoke with her daughter, Elis [phone], over the phone this evening who also gave me some history. Gabriela has a long history of back pain for which she has been on Flexeril for almost a year more, and she started having acute back pain near the end of January and beginning of February. There is an ER note I think it is from [place] in the care everywhere section of the [facility] record from the beginning of February that noted she is on Flexeril and Skelaxin. Jayden Mckeon's daughter tells me that she also started oral dilaudid sometime in February for back pain and then underwent lumbar spine surgery on 03/13/2025. Since then she has continued to use Dilaudid 4 mg p.o. every 6 hours. Her daughter thinks that maybe Gabriela has been using it more often than that and because of the sedative affect, has probably for gotten to take her anti seizure medication. Elis told me that in the last 5 years the handful of seizures Gabriela has had have all been due to forgetting to take her Keppra. Amber told me she is also been taking some lorazepam, but was unable to tell me how much or how often and did even know if she was taking it every day. I could not find any evidence of a recent prescription for lorazepam. Elis said that Gabriela has lorazepam from a long time ago that she still will take on occasion. When I expressed surprise that she was still taking that much Dilaudid this far out from surgery, she did tell me that she started to try to cut down on these medications yesterday, which she thinks is why the seizures started. On 03/17/2025 she came to our emergency department with word-finding difficulty and confusion. She then saw her neurologist yesterday who thought she should have an outpatient EEG. This morning Gabriela got up at some point and then found herself waking up on the floor without any memory of how she got there. She was very weak and could not get up from the floor so she crawled over to a chair and sat there for about an hour. Eventually her parking ramp attendant came to the house and, upon hearing what had happened, called EMS. In the emergency department today she had a witnessed 30 second tonic clonic seizure with some postictal findings as well. The ER doc spoke with the [place] epilepsy group who recommended covering with a 2nd agent, Depakote, and outpatient EEG. She was given extra dose of Keppra IV, an oral dose of Depakote, and Valium for the seizure. She remains postictal, but was starting to have some improvement while I was talking with her. She denies any recent illness, fevers or chills. 03/26/2025: Amber is more alert and interactive. She has it and intermittent forgetfulness about past medical history and recent events. She tells me she has had hatch mal seizures since he was 10 years old. She thinks she has only had 2 seizures in the last year and a half until yesterday. She tells me she has been taking her Keppra as prescribed in that she does not think she has missed any doses. At the same time she has been taking regular dilaudid since her surgery on March 13 and does report some confusion and sedation from this. She is not aware of any fever. She reports her back pain is getting better. When I see her today she is most concerned about right knee pain. She has severe bilateral knee osteoarthritis and has been told he needs both knees replaced. She has also fallen on her right knee probably when she had her seizure. I reviewed [facility] records showing that she had a prescription for lorazepam for 10 1 mg tablets on 03/26/2024, 1 year ago. None since then. She has had hydromorphone 4 mg prescribed 4 times in the last month, 7 tablets on 02/14/2020 tablets on 03/13/2010 tablets on March 16 and 28 tablets on March 19. She tells me she has been taking it every 6 hours but yesterday was going to cut down to 3 times a day. She reports otherwise feeling well and having no other concerns. 03/27/2025: Patient reports feeling back to normal today. She is able to give good details of her history and recent events. She underwent [place] testing where she scored 26/30. She has not had any dilaudid in the last 24 hours. She reports her back pain is much better. Her right knee is still bothering her quite a bit but she is managing without dilaudid with that pain. Status at Discharge Overall status at discharge: patient is progressing back to baseline Time Spent with Patient Time attestation: Total time spent providing and/or coordinating discharge services: 40 minutes Exam Narrative: Exam Narrative: She is alert pleasant and in no distress. Speech is normal. She is oriented to her circumstances and gives good detail. Respirations are clear to auscultation. Cardiovascular: S1, S2, regular rate and rhythm. Back incisions are well healing without erythema or drainage. A abdominal incision also well- healing without erythema or drainage. She does have some maceration and erythema the skin underneath the bottom of the abdominal incision, under her pannus. Const: Vital Signs, click to edit/add: Vital Signs - 24 hr 03/26/25 15:00 03/26/25 15:00 03/26/25 15:00 Temperature 99.5 F Pulse Rate Pulse Rate [Right Pulse Oximeter] 77 77 Respiratory Rate 18 18 Blood Pressure [Le ft Arm] 96/55 L Pulse Oximetry 99 99 Oxygen Delivery Ma thod Room Air 03/26/25 15:17 03/26/25 19:00 03/26/25 22:19 Temperature 99 F Pulse Rate 80 Pulse Rate [Right Pulse Oximeter] 82 Respiratory Rate 18 Blood Pressure [Le ft Arm] 99/64 Pulse Oximetry 94 93 Oxygen Delivery Ma thod Room Air 03/26/25 22:19 03/26/25 22:19 03/26/25 23:00 Temperature 99.4 F Pulse Rate 82 Pulse Rate [Right Pulse Oximeter] 83 83 Respiratory Rate 18 18 Blood Pressure [Le ft Arm] 99/64 Pulse Oximetry 93 Oxygen Delivery Ma thod Room Air 03/27/25 02:28 03/27/25 07:00 03/27/25 07:00 Temperature 99.1 F Pulse Rate 80 Pulse Rate [Right Pulse Oximeter] 80 Respiratory Rate 18 Blood Pressure [Le ft Arm] 122/68 Pulse Oximetry 95 94 Oxygen Delivery Ma thod Room Air 03/27/25 07:00 03/27/25 08:00 03/27/25 11:00 Temperature 97.7 F 98.8 F Pulse Rate Pulse Rate [Right Pulse Oximeter] 80 80 75 Respiratory Rate 18 18 18 Blood Pressure [Le ft Arm] 113/74 102/65 Pulse Oximetry 94 96 Oxygen Delivery Ma thod Room Air Room Air Documenting provider has reviewed patient's vital signs: yes DS: Data Data Completed and Pending Labs on day of discharge: Labs from last 24 hours 03/27/25 07:23 WBC 11.28 H RBC 4.06 Hgb 11.1 L Hct 35.3 MCV 87 MCH 27 MCHC 31 L RDW Coeff of Pritesh 13.2 Plt Count 502 H Neut % (Auto) 63.2 Lymph % (Auto) 24.9 [place] % (Auto) 8.5 Eos % (Auto) 2.5 Baso % (Auto) 0.4 Neut # (Auto) 7.10 H Lymph # (Auto) 2.80 [place] # (Auto) 1.00 H Eos # (Auto) 0.30 Baso # (Auto) 0.00 Abs Immat Gran (auto) 0.10 Imm/Tot Granulo (auto) 0.5 Sodium 137 Potassium 3.8 Chloride 103 Carbon Dioxide 27 Anion Gap 7 BUN 9 Creatinine 0.7 Estimated Creat Clear 49.12 Estimated GFR 95 Glucose 107 Calcium 9.1 C-Reactive Protein 4.0 H Preliminary micro results at discharge 03/25/25 20:05 Blood Culture - Preliminary Blood NO GROWTH AFTER 24 HOURS 03/25/25 20:00 Blood Culture - Preliminary Blood NO GROWTH AFTER [address] scan - head: Radiologist's impression: INDICATION: Recurrent seizure TECHNIQUE: Noncontrast axial CT of the head. Coronal and sagittal reformats. Bone and soft tissue algorithms. COMPARISON: CT head 03/17/2025 FINDINGS: There is artifact from patient motion, degrading image quality. No acute intracranial hemorrhage or abnormal extra-axial fluid collection identified. Small hypoattenuating focus within the subcortical right frontal lobe white matter likely represents a prominent perivascular space versus chronic lacunar infarct, stable. Salazar-white matter differentiation is preserved. No midline shift, hydrocephalus or herniation. Hyperostosis frontalis interna. Suspect small secretions within the bilateral maxillary sinuses. No mastoid effusion. Unremarkable obscured orbits. IMPRESSION: 1. Motion degraded exam, without evidence of acute intracranial abnormality or significant interval change relative to 03/17/2025. Chest x-ray: Radiologist's impression: INDICATION: Recurrent seizure. TECHNIQUE: Chest 1 views. COMPARISON: None. FINDINGS: Cardiovasculature and mediastinum: Heart size is normal. Unremarkable mediastinum. Lungs and pleural spaces: Lungs are clear. No sign of infiltrate or mass. No sign of pleural effusion. No pneumothorax. Bones and soft tissues: No significant findings. IMPRESSION: Negative chest. Ankle x-ray: Radiologist's impression: INDICATION: Fall, right ankle pain TECHNIQUE: Ankle radiograph 3 views right COMPARISON: None FINDINGS: Bone: No acute fractures or aggressive bone lesions are identified. Linear ossific density measuring 7 mm is seen adjacent to the lateral malleolus. There is a moderate plantar calcaneal spur and a moderate posterosuperior enthesophyte present. Joint: Mild osteoarthritis of the ankle joint and visualized midtarsal joints are noted. No significant ankle effusion is seen. Soft tissue: Overlying fabric artifacts moderately degrade the evaluation of the soft tissues and osseous structures of the midfoot. No radiopaque foreign bodies are seen. IMPRESSION: 1. Linear ossific density measuring 7 mm is seen adjacent to the lateral malleolus. Correlation with physical exam for focal tenderness in this region is recommended to exclude an avulsion fracture fragment. Knee x-ray: Radiologist's impression: Patient: Amber Childers MR#: [id number] : 1955 Acct:[id number] Loc: [id number] Service Date: 03/26/[address]: Adelina Mckenzie M.D. Ordering Physician: Ralph Fairchild M.D. Date of Service: 03/26/25 Procedure(s): XR knee RT 3V Accession Number(s): [id number] cc: Harvey Ely PA-C; Ralph Fairchild M.D.~ For Patients: As a result of the Cures Act, medical imaging exams and procedure reports are released immediately into your electronic medical record. You may view this report before your referring provider. If you have questions, please contact your health care provider. Indication: Knee pain Technique: Left knee 3 views Comparison: None Findings: Medial compartment narrowing and spurring. No fracture. Joint effusion. Patellofemoral spurring. Impression: No sign of acute fracture. Degenerative joint disease. Joint effusion. Dictated by Bismark Parks MD @ 03/26/2025 11:10:20 AM Discharge Plan Discharge Disposition: Home, Self-Care Date of Admission: 03/25/25 18:35 Attending Provider on Discharge: Ralph Fairchild Primary Care Provider: Harvey Ely Condition: Stable Anticipated Discharge Date/Time: 03/27/25 10:19 Discharge Medications: New divalproex [Depakote ER] 500 mg tablet extended release 24 hr 500 mg PO BID Qty: 60 0RF Continued albuterol sulfate 90 mcg/actuation HFA aerosol inhaler 2 puff inhalation Q6H PRN Eliquis 5 mg tablet 5 mg PO BID Certavite-Antioxidant 18-400 mg-mcg tablet 1 tab PO Q24H Patient Comments: TAKE 1 TABLET BY MOUTH ONCE DAILY cholecalciferol (vitamin D3) 125 mcg (5,000 unit) tablet 5,000 unit PO QDAY Patient Comments: TAKE 1 TABLET BY MOUTH ONCE DAILY citalopram 40 mg tablet 40 mg PO QDAY fluticasone propion-salmeterol [Advair Diskus] 250-50 mcg/dose blister with device 1 inh inhalation Q12H PRN Patient Comments: INHALE 1 DOSE BY MOUTH TWICE DAILY levetiracetam 750 mg tablet 1,500 mg PO Q12H Patient Comments: TAKE 2 TABLETS BY MOUTH TWICE DAILY DO NOT CRUSH metformin 500 mg tablet extended release 24 hr 1,000 mg PO QDAY nitroglycerin 0.4 mg tablet, sublingual 0.4 mg sublingual Q5M PRN Rx Instructions: do not exceed 3 doses per episode ciclopirox 8 % solution topical QPM metoprolol succinate 25 mg tablet extended release 24 hr 25 mg PO DAILY rosuvastatin 20 mg tablet 10 mg PO QPM Wegovy 2.4 mg/0.75 mL pen injector 2.4 mg subcut Q7D Discontinued lisinopril-hydrochlorothiazide 20-12.5 mg tablet 1 tab PO QDAY Patient Comments: TAKE 1 TABLET BY MOUTH ONCE DAILY cyclobenzaprine 10 mg tablet 10 mg PO 3XD hydromorphone 4 mg tablet 4 mg PO Q6H Patient Comments: sciatic nerve pain Discharge Orders: Discharge Order (Routine); Ordered 03/27/25 Ordered By: Ralph Fairchild Patient Education: Divalproex (By mouth), Recurrent Seizures in Adults (DC) Additional Instructions: Please call your spine surgeon, Dr. Cm, your neurologist, Dr. Callaway, and your primary care provider to make appointments in the next 2 weeks for follow- up of your spine surgery, seizures and blood pressure and other medical problems. Activity Level: Wear Brace and Use Walker Discharge Diet: Heart Healthy (2 gm sodium, low fat) Follow Up Appointments: Harvey Ely PA-C [Primary Care Provider, Family Practice] Referral Note: patient will arrange an appointment Shawn Cm MD [Staff Physician, Back & Spine] Referral Note: patient will arrange an appointment Darby Callaway MD [Referring, Psychiatry & Neurology] Referral Note: patient will arrange an appointment Forms: [facility] Info Instructions
--- NOTE | 2025-03-27 15:24 | PC.NURSE ---
Discharge: Patient pleasant and cooperative, A&O. VSS, afebrile. SpO2 maintained above 90% on RA. reports pain in her right knee this shift, declined PRN medication. Discharge instructions provided, all questions answered.
[2025-03-28 00:04] LABS: Keppra (Levetiracetam) 8 ug/mL (10-40)
== END 2025-03-27 15:16 | disposition home or self-care (01) ==
LOC: ED 17:58 → MEDSURG 18:36
PROVIDERS: Family Medicine; Admitting Provider Family Medicine; Emergency Provider Family Medicine; PCP Physician Assistant Medical; Visit Provider Family Medicine
DX: R41.82 Altered mental status, unspecified (principal); G40.909 Epilepsy, unspecified, not intractable, without status epilepticus; R50.9 Fever, unspecified; I95.9 Hypotension, unspecified; D72.829 Elevated white blood cell count, unspecified; R79.82 Elevated C-reactive protein (CRP); E78.00 Pure hypercholesterolemia, unspecified; Z98.890 Other specified postprocedural states; R73.01 Impaired fasting glucose; M54.9 Dorsalgia, unspecified; G47.33 Obstructive sleep apnea (adult) (pediatric); I25.10 Atherosclerotic heart disease of native coronary artery without angina pectoris; I10 Essential (primary) hypertension; I48.20 Chronic atrial fibrillation, unspecified; Z79.01 Long term (current) use of anticoagulants; Z79.84 Long term (current) use of oral hypoglycemic drugs; J45.909 Unspecified asthma, uncomplicated; K21.9 Gastro-esophageal reflux disease without esophagitis; M17.0 Bilateral primary osteoarthritis of knee; E66.01 Morbid (severe) obesity due to excess calories; Z68.39 Body mass index [BMI] 39.0-39.9, adult; Z98.84 Bariatric surgery status; Z87.09 Personal history of other diseases of the respiratory system; Z86.69 Personal history of other diseases of the nervous system and sense organs
CPT/HCPCS: 36415; 70450; 71045; 73562; 73610; 80048; 80053; 80177; 81001; 83605; 84145; 85025; 86140; 87040; 87086; 93005; 94761; 96361; 96365; 96366; 96367; 96375; 96376; 97110; 97116; 97162; 97166; 97530; 97535; 99284; 99285; 99291; A9270; G0378; J1953; J2185; J3360; J3372; J7030; J7050

== ENCOUNTER 2025-08-15 07:38 | Outpatient (CLI) | payer OTHER, SELFPAY ==
--- NOTE | 2025-08-15 09:23 | P.ANES_ITS ---
Anesthesia Charges Start Date/Time Anesthesia Start Date: 08/15/25 Anesthesia Start Time: 08:45 Stop Date/Time Anesthesia Stop Date: 08/15/25 Anesthesia Stop Time: 09:17 Coding CPT Codes CPT Codes: ANES LWR INTST NDSC NOS - 11110 ([id number]) P3 - PATIENT W/SEVERE SYS DISEASE, QK - PERIOPERATIVE TECH 2-4 CNCRNT ANES PROC
--- NOTE | 2025-08-15 09:23 | W.ANESCHARGE ---
Anesthesia Charges Start Date/Time Anesthesia Start Date: 08/15/25 Anesthesia Start Time: 08:45 Stop Date/Time Anesthesia Stop Date: 08/15/25 Anesthesia Stop Time: 09:17 Coding CPT Codes CPT Codes: ANES LWR INTST NDSC NOS - 79800 ([id number]) P3 - PATIENT W/SEVERE SYS DISEASE, QK - REAL ESTATE LOAN PROCESSOR 2-4 CNCRNT ANES PROC
--- NOTE | 2025-08-15 09:38 | P.ANES_ITS ---
Anesthesia Charges Start Date/Time Anesthesia Start Date: 08/15/25 Anesthesia Start Time: 08:45 Stop Date/Time Anesthesia Stop Date: 08/15/25 Anesthesia Stop Time: 09:17 Coding CPT Codes CPT Codes: ANES LWR INTST NDSC NOS - 61586 ([id number]) QK - AIX SYSTEM ADMINISTRATOR 2-4 CNCRNT ANES PROC, QX - AEROSPACE ENGINEER SVC W/ MED DIRECTION, P3 - PATIENT W/SEVERE SYS DISEASE
--- NOTE | 2025-08-15 09:38 | W.ANESCHARGE ---
Anesthesia Charges Start Date/Time Anesthesia Start Date: 08/15/25 Anesthesia Start Time: 08:45 Stop Date/Time Anesthesia Stop Date: 08/15/25 Anesthesia Stop Time: 09:17 Coding CPT Codes CPT Codes: ANES LWR INTST NDSC NOS - 41160 ([id number]) QK - ONLINE MERCHANDISING COORDINATOR 2-4 CNCRNT ANES PROC, QX - DETAIL MAKER AND FITTER SVC W/ MED DIRECTION, P3 - PATIENT W/SEVERE SYS DISEASE
== END 2025-08-15 07:39 | disposition home or self-care (01) ==
LOC: OP CLINIC 07:40
PROVIDERS: PCP Physician Assistant Medical; Visit Provider Internal Medicine Gastroenterology
DX: Z12.11 Encounter for screening for malignant neoplasm of colon (principal); Z86.0101 Personal history of adenomatous and serrated colon polyps; D12.2 Benign neoplasm of ascending colon; D12.3 Benign neoplasm of transverse colon
CPT/HCPCS: 00811; 45385; 88305; J2704